=== PATIENT | female | born 1970 | race African-American/Black ===

== ENCOUNTER 2017-03-18 17:15 | Inpatient (IN) | payer MEDICARE, MEDICAID, OTHER ==
[~2017-03-18 17:15] MED LIST: BENZ1TAB PO; HALO10 PO; HALO100P IM
--- NOTE | 2017-03-18 18:01 | PD ---
HPI Chief Complaint: EX PARTE Time Seen by Provider: 18:01 Travel History International Travel<30 days: No Contact w/Intl Traveler<30days: No Traveled to known affect area: No History of Present Illness HPI 46 year-old female presents to the emergency department under and EXPARTE for psychiatric evaluation. Patient states that she does not know why she is here. She states she was "just praising Naveed." Denies any suicidal or homicidal ideations. Denies any illicit drug use. States that she has been compliant with her medications. She has no other symptoms to report at this time. PFSH Past Medical History Anemia: Yes Blood Disorders: No Bipolar Disorder: Yes Anxiety: Yes Depression: Yes Cancer: No Cardiovascular Problems: No Diabetes: No (UNK) Diminished Hearing: No Endocrine: No Genitourinary: No Immune Disorder: No Musculoskeletal: No Neurologic: No Psychiatric: Yes (PAST DX PSYCHOSIS) Reproductive: No Respiratory: No : 2 Para: 2 Past Surgical History Arteriovenous Shunt: No Section: Yes Insulin Pump: No Neurologic Surgery: No Pacemaker: No Social History Alcohol Use: No Tobacco Use: No Substance Use: No Allergies-Medications (Allergen,Severity, Reaction): Coded Allergies: Penicillin (Verified Allergy, Mild, 04/24/14) Reported Meds & Prescriptions Reported Meds & Active Scripts Active Reported Benztropine (Benztropine Mesylate) 0.5 Mg Tab 1 Mg PO HS Haldol Decanoate Inj (Haloperidol Decanoate) 100 Mg/Ml Inj 100 Mg IM MONTHLY Haloperidol 10 Mg Tab 15 Mg PO HS Haloperidol 10 Mg Tab 10 Mg PO DAILY Review of Systems Except as stated in HPI: all other systems reviewed are Neg Physical Exam Narrative GENERAL: Well-nourished female patient, in no acute distress SKIN: Focused skin assessment warm/dry. HEAD: Atraumatic. Normocephalic. EYES: Pupils equal and round. No scleral icterus. No injection or drainage. ENT: No nasal bleeding or discharge. Mucous membranes pink and moist. NECK: Trachea midline. No JVD. CARDIOVASCULAR: Regular rate and rhythm. No murmur appreciated. RESPIRATORY: No accessory muscle use. Clear to auscultation. Breath sounds equal bilaterally. GASTROINTESTINAL: Abdomen soft, non-tender, nondistended. Hepatic and splenic margins not palpable. MUSCULOSKELETAL: No obvious deformities. No clubbing. No cyanosis. No edema. NEUROLOGICAL: Awake and alert. No obvious cranial nerve deficits. Motor grossly within normal limits. Normal speech. Data Data Last Documented VS Vital Signs Date Time Temp Pulse Resp B/P Pulse Ox O2 Delivery O2 Flow Rate FiO2 03/18/17 19:49 98.5 102 16 141/79 99 Room Air Orders Complete Blood Count With Diff (03/18/17 18:00) Basic Metabolic Panel (Bmp) (03/18/17 18:00) Psych Screen (03/18/17 18:00) Drug Screen, Random Urine (03/18/17 18:00) Alcohol (Ethanol) (03/18/17 18:00) Labs Laboratory Tests Test 03/18/17 18:12 White Blood Count 10.2 TH/MM3 Red Blood Count 4.10 MIL/MM3 Hemoglobin 12.6 GM/DL Hematocrit 36.8 % Mean Corpuscular Volume 89.8 FL Mean Corpuscular Hemoglobin 30.6 PG Mean Corpuscular Hemoglobin 34.1 % Concent Red Cell Distribution Width 13.4 % Platelet Count 346 TH/MM3 Mean Platelet Volume 7.8 FL Neutrophils (%) (Auto) 73.8 % Lymphocytes (%) (Auto) 15.0 % Monocytes (%) (Auto) 10.5 % Eosinophils (%) (Auto) 0.3 % Basophils (%) (Auto) 0.4 % Neutrophils # (Auto) 7.6 TH/MM3 Lymphocytes # (Auto) 1.5 TH/MM3 Monocytes # (Auto) 1.1 TH/MM3 Eosinophils # (Auto) 0.0 TH/MM3 Basophils # (Auto) 0.0 TH/MM3 CBC Comment DIFF FINAL Differential Comment Sodium Level 137 MEQ/L Potassium Level 3.6 MEQ/L Chloride Level 100 MEQ/L Carbon Dioxide Level 25.3 MEQ/L Anion Gap 12 MEQ/L Blood Urea Nitrogen 12 MG/DL Creatinine 0.69 MG/DL Estimat Glomerular Filtration 110 ML/MIN Rate Random Glucose 77 MG/DL Calcium Level 8.9 MG/DL Urine Opiates Screen NEG Urine Barbiturates Screen NEG Urine Amphetamines Screen NEG Urine Benzodiazepines Screen NEG Urine Cocaine Screen NEG Urine Cannabinoids Screen NEG Ethyl Alcohol Level LESS THAN 3 MG/DL MDM Medical Decision Making Medical Screen Exam Complete: Yes Emergency Medical Condition: Yes Medical Record Reviewed: Yes Differential Diagnosis Mood disorder versus personality disorder versus adjustment reaction disorder Narrative Course 46 year-old female presents to emergency department for evaluation under and X Parte. Patient has been having bizarre behavior. She denies any suicidal or homicidal ideations. CBC and BMP are without acute concern toxicology is negative. EtOH is less than 3. Patient is medically cleared to undergo psychiatric screening for further evaluation and disposition. Mental health screening discussed with the patient. Psychiatric screen ordered. Diagnosis Primary Impression: Mood disorder Condition: Stable Ella Emery Mar 18, 2017 18:01
[2017-03-18 19:31] LABS: AMPHETAMINE, URINE NEG (NEG); BARBITURATES, URINE NEG (NEG); COCAINE, URINE NEG (NEG)
[2017-03-18 19:38] LABS: AUTOMATED NEUTROPHIL # 7.6 TH/MM3 (1.8-7.7); BASOPHIL % 0.4 % (0.0-2.0); EOSINOPHIL % 0.3 % (0.0-4.0); HEMATOCRIT 36.8 % (35.0-46.0); HEMO FLAGS DIFF FINAL; LYMPHOCYTE # 1.5 TH/MM3 (1.0-4.8); MEAN CELL VOLUME 89.8 FL (80.0-100.0); MEAN CORPUSCULAR HEMOGLOBIN 30.6 PG (27.0-34.0); MEAN CORPUSCULAR HGB CONC 34.1 % (32.0-36.0); MONO % 10.5 % (0.0-8.0); NEUT % 73.8 % (16.0-70.0); PLATELET COUNT 346 TH/MM3 (150-450); RED CELL DISTRIBUTION WIDTH 13.4 % (11.6-17.2); WHITE BLOOD COUNT 10.2 TH/MM3 (4.0-11.0)
[2017-03-18 19:49] VITALS: BP 141/79; PULSE 102; RESP 16; TEMP 98.5; O2SAT 99
[2017-03-18 19:59] LABS: ANION GAP 12 MEQ/L (5-15); BICARBONATE 25.3 MEQ/L (21.0-32.0); BLOOD UREA NITROGEN 12 MG/DL (7-18); CHLORIDE 100 MEQ/L (98-107); GLOMERULAR FILTRATION RATE 110 ML/MIN (>89); SODIUM (NA) 137 MEQ/L (136-145)
[2017-03-18 20:03] LABS: POTASSIUM 3.6 MEQ/L (3.5-5.1)
[2017-03-18] MEDS ORDERED: HALO100P IM (20:21)
[2017-03-18] MEDS ORDERED: HALO10TA PO ×2 (20:21)
[2017-03-18] MEDS ORDERED: COGE1INJ IM (20:21)
[2017-03-18] MEDS ORDERED: BENZ0.5T PO (20:22)
[2017-03-18 23:56] VITALS: BP 143/67; PULSE 89; RESP 19; O2SAT 100
[2017-03-19 06:12] VITALS: BP 144/85; PULSE 91; RESP 16; TEMP 98.5; O2SAT 100
[2017-03-19] MEDS ORDERED: LORazepam 0.5 MG TAB PO PRN (09:45)
[2017-03-19] MEDS ORDERED: LORazepam 2 MG/ML VIAL IM PRN ×2 (09:45)
[2017-03-19] MEDS ORDERED: ACETAMINOPHEN 325 MG TAB PO PRN (09:45)
[2017-03-19] MEDS ORDERED: ALUMINUM/MAGNESIUM/SIMETH 30 ML CUP PO PRN (09:45)
[2017-03-19] MEDS ORDERED: MAGNESIUM HYDROXIDE SUSP 30 ML CUP PO PRN (09:45)
[2017-03-19] MEDS: HALOPERIDOL 10 MG TAB PO SCH ×2 (10:15→21:01)
[2017-03-19 10:59] VITALS: BP 141/83; PULSE 98; RESP 15; O2SAT 100
--- NOTE | 2017-03-19 11:41 | HHI.HP ---
Provisional Diagnosis Admission Date Mar 19, 2017 at 09:46 Justin I. Chronic paranoid schizophrenia vs schizoaffective disorder, bipolar type Justin II. Deferred Justin III. No significant medical history Justin IV. Multiple psychiatric hospitalizations, state hospitalizations, history of noncompliance Justin V. 35 Certification of Person's Competence To Provide Express and Informed Consent I have personally examined Jeniffer Caban , a person being served at [facility] on, Mar 19, 2017 11:19. Express and informed consent means consent voluntarily given in writing, by a competent person, after sufficient explanation and disclosure of the subject matter involved to enable the person to make a knowing and willful decision without any element of force, fraud, deceit, duress, or other form of constraint or coercion. This person is 18 years of age or older, is not now known to be incompetent to consent to treatment with a guardian advocate, and does not have a health care surrogate or proxy currently making medical treatment decisions. I have found this person to be one of the following: [] Competent to provide express and informed consent, as defined above, for voluntary admission to this facility and is competent to provide express and informed consent for treatment. He/she has the consistent capacity to make well reasoned, willful, and knowing decisions concerning his or her medical or mental health treatment. The person fully and consistently understands the purpose of the admission for examination/placement and is fully capable of personally exercising all rights assured under [place] [] Incompetent to provide express and informed consent to voluntary admission, and this is incompetent to provide express and informed consent to treatment. The person must be transferred to involuntary status and a petition for a guardian advocate filed with the Circuit Court. [X] Refusing to provide express and informed consent to voluntary admission but is competent to provide express and informed consent for treatment. The person must be discharged or transferred to involuntary status. Form shall be completed within 24 hours of a person's arrival at the receiving facility and filed in the clinical record of each person: 1. Admitted on a voluntary basis 2. Permitted to provide express and informed consent to his/her own treatment 3. Allowed to transfer from involuntary to voluntary status 4. Prior to permitting a person to consent to his or her own treatment after having been previously found incompetent to consent to treatment. History of Present Illness Capacity: Has Capacity HPI The patient is a 46 year-old woman, domiciled in a senior care [facility], single, supported by [facility], with extensive psychiatric history of paranoid schizophrenia, schizoaffective disorder, bipolar type, multiple psychiatric hospitalizations, she was hospitalized here at [place] in 2013, the documentation was reviewed, at that time this hospitalization was due to a very similar presentation to the one today, she has acted outpatient psychiatric care in [facility], she is on Haldol 10 mg in the morning and 15 mg hs, she was given a dose of Haldol decanoate 100 milligrams 03/16/2017, she is also on benztropine 1 mg twice a day, she denies previous suicidal attempts, she has also history of States hospitalizations, no significant medical history, who presents to the emergency department under and EXPARTE for psychiatric evaluation. Patient states that she does not know why she is here. She states she was "just praising Naveed." It is a candidate evaluation patient is persistently praying, stating that Naveed Grover is the Lord, singing, laughing inappropriately. She says that " continue here the angels and the voice of Naveed Ness, I can hear them, they are here". Patient has a Bible open in front of her. As per nurses patient has been reading the Bible, talking to herself, praying most of the night. Patient reports feeling very happy " because Naveed Ness is with me", she denies depressive symptoms, she denies anxiety, she denies suicidal and homicidal ideation. Patient says that she was sent here from her living facility "because I was loud, but they don't understand that I was having an spiritual catharsis". Patient denies the use of drugs and alcohol. Review of Systems Constitutional: DENIES: Diaphoretic episodes, Fatigue, Fever, Weight gain, Weight loss, Chills, Dizziness, Change in appetite, Night Sweats Endocrine: DENIES: Abnorml menstrual pattern, Heat/cold intolerance, Polydipsia , Polyuria, Polyphagia Eyes: DENIES: Blurred vision, Diplopia, Eye inflammation, Eye pain, Vision loss , Photosensitivity, Double Vision Ears, nose, mouth, throat: DENIES: Tinnitus, Hearing loss, Vertigo, Nasal discharge, Oral lesions, Throat pain, Hoarseness, Ear Pain, Running Nose, Epistaxis, Sinus Pain, Toothache, Odynophagia Respiratory: DENIES: Apneas, Cough, Snoring, Wheezing, Hemoptysis, Sputum production, Shortness of breath Cardiovascular: DENIES: Chest pain, Palpitations, Syncope, Dyspnea on Exertion , PND, Lower Extremity Edema, Orthopnea, Claudication Gastrointestinal: DENIES: Abdominal pain, Black stools, Bloody stools, Constipation, Diarrhea, Nausea, Vomiting, Difficulty Swallowing, Anorexia Genitourinary: DENIES: Abnormal vaginal bleeding, Dysmenorrhea, Dyspareunia, Sexual dysfunction, Urinary frequency, Urinary incontinence, Urgency, Hematuria , Dysuria, Nocturia, Vaginal discharge Integumentary: DENIES: Abnormal pigmentation, Pruritus, Rash, Nail changes, Breast masses, Breast skin changes, Nipple discharge Hematologic/lymphatic: DENIES: Bruising, Lymphadenopathy Immunologic/allergic: DENIES: Eczema, Urticaria Psychiatric: COMPLAINS OF: Agitation, Delusions, DENIES: Anxiety, Confusion, Mood changes, Depression, Hallucinations, Suicidal Ideation, Homicidal Ideation Substance Abuse History Drugs/Alcohol past 12 months Patient denies the use of drugs and alcohol Past Family Social History Coded Allergies: Penicillin (Verified Allergy, Mild, 04/24/14) Reported Medications Benztropine 0.5 Mg Tab1 Mg PO HS #30 TAB Ref 0 03/18/17 Haloperidol Decanoate Inj (Haldol Decanoate Inj)100 Mg/Ml [id number] Mg IM MONTHLY #1 VIAL Ref 0 03/18/17 Haloperidol 10 Mg Tab15 Mg PO HS Ref 0 03/18/17 Haloperidol 10 Mg Tab10 Mg PO DAILY Ref 0 03/18/17 Current Medications Medications (Trade) Dose Ordered Sig/Galen Route Start Time Stop Time Status Last Admin (Cogentin) 1 mg HS PO 03/19/17 21:00 (Haldol) 10 mg DAILY PO 03/19/17 09:45 03/19/17 10:15 (Haldol) 15 mg HS PO 03/19/17 21:00 (Ativan) 1 mg Q6H PRN PO 03/19/17 09:45 (Ativan Inj) 1 mg Q6H PRN IM 03/19/17 09:45 (Tylenol) 650 mg Q4H PRN PO 03/19/17 09:45 (Milk Of Magnesia Liq) 30 ml DAILY PRN PO 03/19/17 09:45 (Mag-Al Plus Susp Liq) 30 ml Q6H PRN PO 03/19/17 09:45 (Habitrol 21 Mg Patch.24 Hr) 1 patch DAILY T-DERMAL 03/19/17 10:00 Miscellaneous Information 1 HS T-DERMAL 03/19/17 21:00 Family History Patient reports that her aunt and grandmother are both a schizophrenic Social History Patient was born and raised in [place], she lives in [place] in [facility] nursing home, she is single, supported by [facility], his education is some college Patient's Strengths (min. 2) Outpatient psychiatric care Physical Exam On physical examination, patient is agitated, restless, talkative, but no tremors, no significant EPS, no gait disturbances, no weakness, Vital Signs Vital Signs Date Time Temp Pulse Resp B/P Pulse Ox O2 Delivery O2 Flow Rate FiO2 03/19/17 10:59 98 15 141/83 100 Room Air 03/19/17 06:12 98.5 Lab Results Labs Laboratory Tests Test 03/18/17 18:12 White Blood Count 10.2 TH/MM3 Red Blood Count 4.10 MIL/MM3 Hemoglobin 12.6 GM/DL Hematocrit 36.8 % Mean Corpuscular Volume 89.8 FL Mean Corpuscular Hemoglobin 30.6 PG Mean Corpuscular Hemoglobin 34.1 % Concent Red Cell Distribution Width 13.4 % Platelet Count 346 TH/MM3 Mean Platelet Volume 7.8 FL Neutrophils (%) (Auto) 73.8 % Lymphocytes (%) (Auto) 15.0 % Monocytes (%) (Auto) 10.5 % Eosinophils (%) (Auto) 0.3 % Basophils (%) (Auto) 0.4 % Neutrophils # (Auto) 7.6 TH/MM3 Lymphocytes # (Auto) 1.5 TH/MM3 Monocytes # (Auto) 1.1 TH/MM3 Eosinophils # (Auto) 0.0 TH/MM3 Basophils # (Auto) 0.0 TH/MM3 CBC Comment DIFF FINAL Differential Comment Sodium Level 137 MEQ/L Potassium Level 3.6 MEQ/L Chloride Level 100 MEQ/L Carbon Dioxide Level 25.3 MEQ/L Anion Gap 12 MEQ/L Blood Urea Nitrogen 12 MG/DL Creatinine 0.69 MG/DL Estimat Glomerular Filtration 110 ML/MIN Rate Random Glucose 77 MG/DL Calcium Level 8.9 MG/DL Urine Opiates Screen NEG Urine Barbiturates Screen NEG Urine Amphetamines Screen NEG Urine Benzodiazepines Screen NEG Urine Cocaine Screen NEG Urine Cannabinoids Screen NEG Ethyl Alcohol Level LESS THAN 3 MG/DL Mental Status Examination Appearance Overweight woman, looks younger than her stated age, hospital [facility], good hygiene, restless, agitated, cooperative, but very talkative Speech: Rapid, Tangential Orientation: x3 Memory: Unremarkable Thought Process: Loose Association, Tangential Thought Content: Bizarre thinking, Obsessions Language She speaks in complete sentences, but reported the wording Fund of Knowledge Not able to be as assessed due to level of psychosis Hallucination Type: Auditory, Visual Suicidal Ideation: No Previous Suicide Attempts: No Homicidal Ideation: No Previous Homicide Attempts: No Judgment: Poor Affect: Other (euphoric, elevated) Mood: Other ("very happy") Motor Activity: Normal gait Assessment & Plan Problem List: (1) Schizoaffective disorder Assessment & Plan: On psychiatric evaluation today patient presents with significant mandaen and internal preoccupation, restless, agitated, disorganized, tangential. Patient has an extensive history of psychiatric admission due to psychotic decompensation. Previous psychotic decompensation have been similar to the current presentation, as per chart review. Patient needs psychiatric admission for stabilization and safety. We'll restart Haldol 10 mg a.m. and 15 mg at bedtime. We'll start benztropine 1 mg twice a day. Patient was given Haldol decanoate 100 mg 03/16/2017, so PO Haldol could be discontinue in 2 weeks once this information is confirmed. Collateral information from her living facility and outpatient psychiatrist needed. Will consult psychiatry for second opinion. steel construction worker intervention. Psychosocial assessment, collateral information, individual and group therapy, coordinating a safe discharge plan. Extensive psychoeducation, motivation and support provided. ICD Code: F25.9 Assessment & Plan Estimated LOS: days Problem Qualifiers (1) Schizoaffective disorder: Qualified Code: F25.0 - Schizoaffective disorder, bipolar type Juno Trujillo MD Mar 19, 2017 11:41
[2017-03-19 13:51] VITALS: BP 133/73; PULSE 101; RESP 17; TEMP 97.9; O2SAT 98
[2017-03-19 18:04] VITALS: BP 159/100; PULSE 120; RESP 19; TEMP 98.4; O2SAT 100
[2017-03-19] MEDS: REMOVE OLD NICODERM (NICOTINE) PATCH T-DERMAL SCH (21:00)
[2017-03-19] MEDS: BENZTROPINE MESYLATE 1 MG TAB PO SCH (21:00)
[2017-03-20] MEDS: LORazepam 1 MG TAB PO PRN ×2 (04:53→15:58)
[2017-03-20 05:09] VITALS: BP 162/77; PULSE 125; RESP 18; TEMP 97.5; O2SAT 97
[2017-03-20 08:11] LABS: BICARBONATE 25.8 MEQ/L (21.0-32.0); POTASSIUM 3.3 MEQ/L (3.5-5.1)
[2017-03-20 08:14] LABS: HDL CHOLESTEROL 74.9 MG/DL (40.0-60.0)
[2017-03-20] MEDS: HALOPERIDOL 10 MG TAB PO SCH ×2 (08:57→20:41)
[2017-03-20] MEDS: NICOTINE 21 MG/24 HR PATCH T-DERMAL SCH ×2 (08:58→09:00)
--- NOTE | 2017-03-20 14:04 | HHI.PYPN ---
Subjective Remarks This is a request for second opinion. Admission note was reviewed, patient was seen, and case discussed with nursing. Patient remains elevated with the euphoric and expansive affect. She is singing loudly in the dayroom and later singing loudly to herself. Insight is poor. She denies any hallucinations or messages from God despite responding to internal stimuli. Heart rate and blood pressure has been elevated. Patient denies any chest pain or shortness of breath or nausea or vomiting. Potassium is 3.3 Objective Alert: Yes [place]: Person, Place Mood: Happy Affect: Other (euphoric) Memory Intact: Immediate (not formally assessed) Hallucinations: Auditory (denies) Delusions: No Delusion Type: Other (bizarre delusions, responding to internal stimuli) Suicidal: Ideation (denies) Homicidal: Ideation (denies) Insight/Judgment Poor Labs Test 03/20/17 07:21 Sodium Level 135 MEQ/L Potassium Level 3.3 MEQ/L Chloride Level 99 MEQ/L Carbon Dioxide Level 25.8 MEQ/L Anion Gap 10 MEQ/L Blood Urea Nitrogen 11 MG/DL Creatinine 0.61 MG/DL Estimat Glomerular Filtration 127 ML/MIN Rate Random Glucose 86 MG/DL Calcium Level 8.9 MG/DL Triglycerides Level 73 MG/DL Cholesterol Level 196 MG/DL LDL Cholesterol 107 MG/DL HDL Cholesterol 74.9 MG/DL Cholesterol/HDL Ratio 2.61 RATIO Vitals/IOs Vital Signs Date Time Temp Pulse Resp B/P Pulse Ox O2 Delivery O2 Flow Rate FiO2 03/20/17 05:09 97.5 125 18 162/77 97 03/19/17 10:59 Room Air Assessment & Plan Problem List: (1) Schizoaffective disorder ICD Code: F25.9 Assessment & Plan I agree with the first opinion to continue petition. Criteria include acute psychosis. We will consult medicine, get a magnesium level, getting EKG, and replace potassium Justification for Cont. Inpt. Patient will decompensate in a less restrictive setting Problem Qualifiers (1) Schizoaffective disorder: Qualified Code: F25.0 - Schizoaffective disorder, bipolar type Bryson Barnes DO Mar 20, 2017 14:04
[2017-03-20] MEDS ORDERED: POTASSIUM CHLORIDE 20 MEQ CONTROLLED RELEASE TAB PO ONE (14:15)
--- NOTE | 2017-03-20 16:32 | PD.CONS ---
History of Present Illness Service Hospitalist Consult Requested By Dr. Trujillo Reason for Consult Hypokalemia and hypertension Primary Care Physician No Primary Care Physician Diagnoses: History of Present Illness This is a 38-year-old female patient with extensive psychiatric history with multiple admissions was admitted to psychiatry for stabilization and safety of her worsening psychosis. Incidentally the patient was found to have a potassium of 3.3 and elevated blood pressure. Hypertension does not appear to be one of the patient's active medical problems. Hospitals were consulted to assist with management. Past Family Social History Allergies: Coded Allergies: Penicillin (Verified Allergy, Mild, 04/24/14) Past Medical History Schizoaffective disorder Reported Medications Benztropine (Benztropine Mesylate) 0.5 Mg Tab 1 Mg PO HS Haldol Decanoate Inj (Haloperidol Decanoate) 100 Mg/Ml Inj 100 Mg IM MONTHLY Haloperidol 10 Mg Tab 15 Mg PO HS Haloperidol 10 Mg Tab 10 Mg PO DAILY Family History Patient reports that her aunt and grandmother are both a schizophrenic Social History Patient was born and raised in [place], she lives in [place] in [facility] home, she is single, supported by [facility], his education is some college Physical Exam Vital Signs Vital Signs Date Time Temp Pulse Resp B/P Pulse Ox O2 Delivery O2 Flow Rate FiO2 03/20/17 05:09 97.5 125 18 162/77 97 03/19/17 18:04 98.4 120 19 159/100 100 Physical Exam GENERAL: This is a well-nourished, well-developed patient, in no apparent distress. SKIN: No rashes, ecchymoses or lesions. Cool and dry. HEAD: Atraumatic. Normocephalic. No temporal or scalp tenderness. EYES: Pupils equal round and reactive. Extraocular motions intact. No scleral icterus. No injection or drainage. ENT: Nose without bleeding, purulent drainage or septal hematoma. Throat without erythema, tonsillar hypertrophy or exudate. Uvula midline. Airway patent. NECK: Trachea midline. No JVD or lymphadenopathy. Supple, nontender, no meningeal signs. CARDIOVASCULAR: Regular rate and rhythm without murmurs, gallops, or rubs. RESPIRATORY: Clear to auscultation. Breath sounds equal bilaterally. No wheezes , rales, or rhonchi. GASTROINTESTINAL: Abdomen soft, non-tender, nondistended. No hepato-splenomegaly , or palpable masses. No guarding. MUSCULOSKELETAL: Extremities without clubbing, cyanosis, or edema. No joint tenderness, effusion, or edema noted. No calf tenderness. Negative Homans sign bilaterally. NEUROLOGICAL: Awake and alert. Cranial nerves II through XII intact. Motor and sensory grossly within normal limits. Five out of 5 muscle strength in all muscle groups. Normal speech. Laboratory Laboratory Tests Test 03/20/17 07:21 Sodium Level 135 Potassium Level 3.3 Chloride Level 99 Carbon Dioxide Level 25.8 Anion Gap 10 Blood Urea Nitrogen 11 Creatinine 0.61 Estimat Glomerular Filtration 127 Rate Random Glucose 86 Calcium Level 8.9 Triglycerides Level 73 Cholesterol Level 196 LDL Cholesterol 107 HDL Cholesterol 74.9 Cholesterol/HDL Ratio 2.61 Result Diagram: 03/18/17 18103/20/17 0721 Assessment and Plan Problem List: (1) Hypokalemia Status: Acute (2) Hypertension Status: Acute Assessment and Plan 46-year-old female patient with schizoaffective disorder admitted to inpatient psychiatry for worsening psychosis, hospitalist consulted to manage the following Elevated BP: Blood pressure has been consistently elevated with intermittent tachycardia. We will initiate the patient on amlodipine 5 mg daily and titrate up as necessary. Hypokalemia: Potassium 3.3 she received 20 meq of KCL. Mg and CMP also ordered. Will follow and further replete as necessary Schizoaffective disorder with psychosis: per psych Aury Kessler MD Mar 20, 2017 16:32
[2017-03-20] MEDS: amLODIPine BESYLATE 5 MG TAB PO SCH (18:03)
[2017-03-20 18:04] VITALS: BP 165/103; PULSE 120; RESP 18; TEMP 96.5; O2SAT 99
[2017-03-20] MEDS: BENZTROPINE MESYLATE 1 MG TAB PO SCH (20:41)
[2017-03-20] MEDS: REMOVE OLD NICODERM (NICOTINE) PATCH T-DERMAL SCH (20:41)
[2017-03-21 05:44] VITALS: BP 158/75; PULSE 125; RESP 20; TEMP 98.3; O2SAT 98
[2017-03-21] MEDS: amLODIPine BESYLATE 5 MG TAB PO SCH (08:59)
[2017-03-21] MEDS: HALOPERIDOL 10 MG TAB PO SCH ×2 (08:59→19:48)
[2017-03-21] MEDS: NICOTINE 21 MG/24 HR PATCH T-DERMAL SCH (08:59)
[2017-03-21 09:55] LABS: ANION GAP 11 MEQ/L (5-15); AST (GOT) 36 U/L (15-37); BICARBONATE 25.9 MEQ/L (21.0-32.0); BLOOD UREA NITROGEN 9 MG/DL (7-18); CHLORIDE 100 MEQ/L (98-107); GLOMERULAR FILTRATION RATE 118 ML/MIN (>89); MAGNESIUM 1.9 MG/DL (1.5-2.5); POTASSIUM 3.3 MEQ/L (3.5-5.1); SODIUM (NA) 137 MEQ/L (136-145)
[2017-03-21 09:59] LABS: ALKALINE PHOSPHATASE 92 U/L (45-117); ALT (GPT) 32 U/L (10-53); TOTAL BILIRUBIN ADULT 1.7 MG/DL (0.2-1.0)
--- NOTE | 2017-03-21 13:09 | HHI.PYPN ---
Subjective Remarks Patient was seen and case discussed with nursing. Patient is followed by the medical team, potassium was 3.3 and medicine said he they would replace and follow. Patient remains labile and religiously preoccupied. Spending her time kneeling and praying. Insight continues to be very poor. She wrote a letter saying she would refuse her by mouth medications from now on. Psychoeducation was done about her involuntary status. Patient says she received Haldol Decanoate 100 mg on 03/17 Objective Alert: Yes [place]: Person, Place Mood: Happy Affect: Other (euphoric) Memory Intact: Immediate (not formally assessed) Hallucinations: Auditory (responding to internal stimuli) Delusions: No Delusion Type: Other (bizarre delusions, responding to internal stimuli) Suicidal: Ideation (denies) Homicidal: Ideation (denies) Insight/Judgment Poor Labs Test 03/21/17 09:10 Sodium Level 137 MEQ/L Potassium Level 3.3 MEQ/L Chloride Level 100 MEQ/L Carbon Dioxide Level 25.9 MEQ/L Anion Gap 11 MEQ/L Blood Urea Nitrogen 9 MG/DL Creatinine 0.65 MG/DL Estimat Glomerular Filtration 118 ML/MIN Rate Random Glucose 73 MG/DL Calcium Level 9.3 MG/DL Magnesium Level 1.9 MG/DL Total Bilirubin 1.7 MG/DL Aspartate Amino Transf 36 U/L (AST/SGOT) Alanine Aminotransferase 32 U/L (ALT/SGPT) Alkaline Phosphatase 92 U/L Total Protein 8.5 GM/DL Albumin 3.6 GM/DL Vitals/IOs Vital Signs Date Time Temp Pulse Resp B/P Pulse Ox O2 Delivery O2 Flow Rate FiO2 03/21/17 05:44 98.3 125 20 158/75 98 03/19/17 10:59 Room Air Assessment & Plan Problem List: (1) Schizoaffective disorder ICD Code: F25.9 Assessment & Plan Add IM doses patient refuses by mouth Haldol Justification for Cont. Inpt. Patient would decompensate in a less restrictive setting Problem Qualifiers (1) Schizoaffective disorder: Qualified Code: F25.0 - Schizoaffective disorder, bipolar type Bryson Barnes DO Mar 21, 2017 13:09
[2017-03-21] MEDS ORDERED: HALOPERIDOL LACTATE 5 MG/ML AMP IM PRN (13:15)
--- NOTE | 2017-03-21 18:27 | EKG ---
Date Performed: 03/20/2017 Time Performed: 15:30:31 PTAGE: 46 years EKG: SINUS TACHYCARDIA POSSIBLE LEFT ATRIAL ENLARGEMENT NONSPECIFIC T-WAVE ABNORMALITY ABNORMAL RHYTHM ECG PREVIOUS TRACING : 07/10/2009 07.19 Compared to prior tracing no significant change DOCTOR: Oneal Palmer Interpretating Date/Time 03/21/2017 18:24:54
[2017-03-21] MEDS ORDERED: cloNIDine HCL 0.1 MG TAB PO ONE (19:30)
[2017-03-21] MEDS: BENZTROPINE MESYLATE 1 MG TAB PO SCH (19:49)
[2017-03-21 22:23] VITALS: BP 185/103; PULSE 118; RESP 20; TEMP 98.7; O2SAT 97
[2017-03-22 05:53] VITALS: BP 141/89; PULSE 119; RESP 18; TEMP 97.3; O2SAT 98
[2017-03-22] MEDS ORDERED: POTASSIUM CHLORIDE 10 MEQ CONTROLLED RELEASE TAB PO ONE (08:30)
[2017-03-22] MEDS: amLODIPine BESYLATE 5 MG TAB PO SCH (09:00)
[2017-03-22] MEDS: HALOPERIDOL 10 MG TAB PO SCH ×2 (09:00→21:00)
--- NOTE | 2017-03-22 11:20 | HHI.PR ---
Subjective Remarks Follow up: hypokalemia and HTN Patient sitting in [place] using the phone. Patient appears to be in no acute distress. Pleasant but refusing any PO medication at this time- patient unable to explain to reason. Patient reports she is blessed and offers no medical complaints at this time. Patient denies SOB, CP, N/V/C/D, fevers or chills. Objective Vitals Vital Signs Date Time Temp Pulse Resp B/P Pulse Ox O2 Delivery O2 Flow Rate FiO2 03/22/17 05:53 97.3 119 18 141/89 98 03/21/17 22:23 98.7 118 20 185/103 97 Result Diagram: 03/18/17 1812 03/21/17 0910 Objective Remarks GENERAL: This is a well-nourished, well-developed patient, in no apparent distress. SKIN: No rashes, ecchymoses or lesions. Cool and dry. HEAD: Atraumatic. Normocephalic. No temporal or scalp tenderness. EYES: Extraocular motions intact. No scleral icterus. No injection or drainage. CARDIOVASCULAR: tachycardia. RESPIRATORY: Clear to auscultation. Breath sounds equal bilaterally. No wheezes , rales, or rhonchi. GASTROINTESTINAL: Abdomen soft, non-tender, nondistended. No hepato-splenomegaly , or palpable masses. No guarding. MUSCULOSKELETAL: Extremities without clubbing, cyanosis, or edema. No joint tenderness, effusion, or edema noted. No calf tenderness. Negative Homans sign bilaterally. NEUROLOGICAL: Awake and alert. no focal deficits noted. Motor and sensory grossly within normal limits. Five out of 5 muscle strength in all muscle groups. Normal speech. A/P Assessment and Plan 46-year-old female patient with schizoaffective disorder admitted to inpatient psychiatry for worsening psychosis, hospitalist consulted to manage the following Elevated BP: Blood pressure has been consistently elevated with intermittent tachycardia. patient refusing PO medication today will hold amlodipine 5 mg daily start clonidine patch 0.1mg continue to monitor BP once taking PO plan to transition back to PO check TSH Hypokalemia: Potassium 3.3 she received 20 meq of KCL. Mg 1.9. Patient refusing to take pill will change to effervescent. Will follow and further replete as necessary Schizoaffective disorder with psychosis: per psych Discussed with patient, staff and Yara Galeano PA Mar 22, 2017 11:20
[2017-03-22] MEDS ORDERED: POTASSIUM CHLORIDE 25 MEQ EFFERVESCENT TAB PO ONE (12:00)
--- NOTE | 2017-03-22 12:00 | HHI.PYPN ---
Subjective Remarks Patient seen and examined with counselor. Chart reviewed. Case discussed with nursing staff reports that the patient remains quite religiously preoccupied. On my examination today, the patient presents with an elevated mood. She asks for discharge saying "I had a moment of up if any. I wanted to praise him" referring to God. She denies suicidal or homicidal ideation. Speech a little bit pressured. Thought process with some loosening of associations. The patient reports that she received 100 mg of Haldol Decanoate on March 17. She refused her oral Haldol this morning. Denies side effects from medications. No physical complaints. Review of Systems ROS Limitations: Psychotic, Poor Historian Except as stated in HPI: all other systems reviewed are Neg Objective Alert: Yes [place]: Person, Place Mood: Other (elevated) Affect: Other (expansive) Memory Intact: Immediate (not formally assessed) Hallucinations: Auditory (internally preoccupied) Delusions: Yes Delusion Type: Grandiose, Other (judaism) Suicidal: Ideation (denies SI) Homicidal: Ideation (denies HI) Insight/Judgment Poor Remarks No motor abnormalities noted. Thought process with loosening of associations. Speech somewhat pressured. Grooming and hygiene fair. Labs Labs reviewed. Vitals/IOs Vital Signs Date Time Temp Pulse Resp B/P Pulse Ox O2 Delivery O2 Flow Rate FiO2 03/22/17 05:53 97.3 119 18 141/89 98 03/19/17 10:59 Room Air Assessment & Plan Problem List: (1) Schizoaffective disorder ICD Code: F25.9 Assessment & Plan As an initial step, I will try to titrate patient's Haldol Decanoate for additional antipsychotic action. Given her oral dose of Haldol, with which she may be variably adherent, she likely would benefit from a higher dose of Decanoate, and I will order 50 mg IM now. QTc wnl. To consider a mood stabilizer such as Depakote or lithium. Continue to monitor on the high daily unit. Continue other medications and care as ordered. Justification for Cont. Inpt. Impairment in reality construction. Medication changes and process. High risk for decompensation in a less restrictive environment. Discharge Planning Pending psychiatric stabilization Request HC Surrog/Guard Advoc?: Yes (I will request healthcare surrogate and guardian advocate as I patrol judge the patient is not capacitated to make medical decisions in her present state.) Problem Qualifiers (1) Schizoaffective disorder: Qualified Code: F25.0 - Schizoaffective disorder, bipolar type Kenneth Kennedy MD Mar 22, 2017 12:00
[2017-03-22] MEDS: cloNIDine HCL 0.1 MG/24 HR PATCH T-DERMAL SCH (13:00)
[2017-03-22] MEDS ORDERED: HALOPERIDOL DECANOATE 50 MG/ML VIAL IM SCH (14:00)
[2017-03-22] MEDS ORDERED: POTASSIUM CHLORIDE 20 MEQ CONTROLLED RELEASE TAB PO ONE (18:00)
[2017-03-22 18:11] VITALS: BP 145/83; PULSE 112; RESP 18; TEMP 98.3; O2SAT 98
[2017-03-22] MEDS: BENZTROPINE MESYLATE 1 MG TAB PO SCH (21:00)
[2017-03-23 06:08] VITALS: BP 146/91; PULSE 107; RESP 17; TEMP 97.7; O2SAT 98
[2017-03-23] MEDS: HALOPERIDOL 10 MG TAB PO SCH ×3 (08:41→21:48)
--- NOTE | 2017-03-23 11:54 | HHI.PYPN ---
Subjective Remarks Patient seen and examined with counselor and nurse. Chart reviewed. Case discussed with nursing staff who reports patient continues to refuse oral Haldol. Patient also has been eating poorly, and it appears that she ate 100% of dinner last night but otherwise has been refusing meals. When I asked the patient about this today she says that she is "giving God all the glory." She further tells me that "Kerwin 4:4 says that man shall not live by bread alone. " Denies SI or HI. She denies side effects from medications. She did receive additional Haldol Decanoate yesterday. No physical complaints. Review of Systems ROS Limitations: Psychotic, Poor Historian Except as stated in HPI: all other systems reviewed are Neg Objective Alert: Yes [place]: Person, Place Mood: Other (remains somewhat elevated) Affect: Other (remains somewhat expansive) Memory Intact: Immediate (not formally assessed) Hallucinations: Auditory (internally stimulated) Delusions: Yes Delusion Type: Grandiose, Other (ongoing denominational delusions) Suicidal: Ideation (denies SI) Homicidal: Ideation (denies HI) Insight/Judgment Poor Remarks No motor abnormalities noted. Grooming and hygiene fair. Thought process linear within delusional system. Labs Labs reviewed. I see that a beta hCG has not been checked and have ordered one now. Vitals/IOs Vital Signs Date Time Temp Pulse Resp B/P Pulse Ox O2 Delivery O2 Flow Rate FiO2 03/23/17 06:08 97.7 107 17 146/91 98 03/19/17 10:59 Room Air Assessment & Plan Problem List: (1) Schizoaffective disorder ICD Code: F25.9 Assessment & Plan Continue to offer oral Haldol. I have titrated the IM backup for patient's Haldol to 10 mg per dose. Patient has now received 150 mg of IM Haldol Decanoate. Add Depakote DR 500 mg twice daily for mood stabilization. LFTs and platelets okay. I will leave an instruction not to start the Depakote until the beta hCG has resulted negative. Encouraged food intake. Continue to monitor on the high acuity unit. Continue other medications and care as ordered. Justification for Cont. Inpt. Impairment in self-care. Impairment in reality construction. High risk for decompensation in less restrictive environment. Med changes in process. Discharge Planning Pending psychiatric stabilization Request HC Surrog/Guard Advoc?: Yes Problem Qualifiers (1) Schizoaffective disorder: Qualified Code: F25.0 - Schizoaffective disorder, bipolar type Kenneth Kennedy MD Mar 23, 2017 11:54
[2017-03-23 17:19] LABS: BHCG SCREEN QUALITATIVE LESS THAN 1 MIU/ML (0-5)
[2017-03-23 18:05] VITALS: BP 163/90; PULSE 101; RESP 18; TEMP 98; O2SAT 100
[2017-03-23] MEDS: DIVALPROEX DR 500 MG TABEC PO SCH (21:00)
[2017-03-23] MEDS: BENZTROPINE MESYLATE 1 MG TAB PO SCH (21:00)
[2017-03-23] MEDS: HALOPERIDOL LACTATE 5 MG/ML AMP IM PRN (22:05)
[2017-03-24 05:47] VITALS: BP 125/89; PULSE 97; RESP 18; TEMP 97.4; O2SAT 99
[2017-03-24] MEDS: HALOPERIDOL 10 MG TAB PO SCH ×3 (09:00→21:00)
--- NOTE | 2017-03-24 09:42 | HHI.PYPN ---
Subjective Remarks Patient seen and examined with counselor and nurse. Chart reviewed. Case discussed with nursing staff. Patient is refusing Haldol PO and receiving this IM. She continues to refuse meals, and has not eaten since 03/22 at dinner. On my examination, patient maintains it is her plan to continue to refuse to eat, again because of her jewish preoccupation. She presents as loud, intrusive, paranoid, argumentative. No side effects from medications. No physical complaints. Review of Systems ROS Limitations: Psychotic, Poor Historian Except as stated in HPI: all other systems reviewed are Neg Objective Alert: Yes [place]: Person, Place Mood: Agitated, Angry, Oppositional Affect: Labile Memory Intact: Immediate (not formally assessed) Hallucinations: Auditory (remains int stim) Delusions: Yes Delusion Type: Grandiose, Other (ongoing jewish delusions) Suicidal: Ideation (No SI) Homicidal: Ideation (No HI) Insight/Judgment Poor Remarks No motor abnormalities noted. TP perseverative on jewish themes. Grooming and hygiene fair. Labs Labs reviewed. Patient refused labs this am per nursing staff. Vitals/IOs Vital Signs Date Time Temp Pulse Resp B/P Pulse Ox O2 Delivery O2 Flow Rate FiO2 03/24/17 05:47 97.4 97 18 125/89 99 Assessment & Plan Problem List: (1) Schizoaffective disorder ICD Code: F25.9 Assessment & Plan Titrate Haldol to 10mg TID PO/IM to target psychosis. VPA on hold awaiting consent. Encourage PO intake. I&Os. Consult to the fireworks inspector. Weigh pt every third day. Try to obtain labs tomorrow that were ordered today. Continue to monitor on high acuity unit. Continue other medications and care as ordered. Justification for Cont. Inpt. Impairment in self-care (food refusal). Impairment in reality testing. High risk for decompensation. Medication changes and process. Discharge Planning Pending outcome of [address]. Request HC Surrog/Guard Advoc?: Yes Problem Qualifiers (1) Schizoaffective disorder: Qualified Code: F25.0 - Schizoaffective disorder, bipolar type Kenneth Kennedy MD Mar 24, 2017 09:41
[2017-03-24] MEDS: HALOPERIDOL LACTATE 5 MG/ML AMP IM PRN ×3 (09:51→22:34)
--- NOTE | 2017-03-24 10:35 | HHI.PR ---
Subjective Remarks Follow-up visit hypokalemia, HTN. Patient seen and examined today. Seen kneeling on the floor with bilateral on her hand. States to leave her alone she is doing okay. Then patient's sat up in the bed, started yelling and screaming that she is very unhappy with Dr. Kennedy. She states that Dr. Fuchs lied to me." Patient states that "he said I'm only going to get Haldol 100 mg injection without any pills, but he gave me Haldol 50 mg injection and the nurses keeps on insisting that I need pills." The patient was redirected. She asked if I believe in God and Naveed Grover and answered yes. Patient started to calm down and talking normally. States she is doing well. States she is refusing lab work because she is doing okay and she doesn' t need labs to be drawn. Discuss importance of lab draw especially when she has low potassium. But patient adamantly refused. Denies pain and discomfort. Denies SOB/ dyspnea. Denies chest pain, palpitations, headaches, dizziness. Denies fevers, chills, n/v/d. Denies dysuria. Objective Vitals Vital Signs Date Time Temp Pulse Resp B/P Pulse Ox O2 Delivery O2 Flow Rate FiO2 03/24/17 05:47 97.4 97 18 125/89 99 03/23/17 18:05 98.0 101 18 163/90 100 Result Diagram: 03/21/17 0910 Objective Remarks GENERAL: This is a well-nourished, well-developed patient, in no apparent distress. SKIN: Warm and dry. HEENT: Normocephalic. Pupils equal round and reactive. Nose without bleeding. Airway patent. NECK: Trachea midline. CARDIOVASCULAR: Tachycardia without murmurs, gallops, or rubs. RESPIRATORY: Clear to auscultation. Breath sounds equal bilaterally. No wheezes , rales, or rhonchi. GASTROINTESTINAL: Abdomen soft, non-tender, nondistended. Bowel Sounds normoactive x4. MUSCULOSKELETAL: Extremities without clubbing, cyanosis, or edema. NEUROLOGICAL: Awake and alert. Agitated. No focal neuro deficit. Moves all extremities. Normal speech. A/P Problem List: (1) Hypertension ICD Code: I10 Status: Chronic (2) Hypokalemia ICD Code: E87.6 Status: Acute (3) Schizoaffective disorder ICD Code: F25.9 Status: Acute (4) Mood disorder ICD Code: F39 Status: Acute Assessment and Plan 46-year-old female patient with schizoaffective disorder admitted to inpatient psychiatry for worsening psychosis, hospitalist consulted to manage the following Elevated BP: Blood pressure has been consistently elevated with intermittent tachycardia. Clonidine patch started. Tachycardia is possibly related to agitation continue to monitor BP Restart home med Norvasc once patient takes by mouth. TSH 1.490 Hypokalemia: Potassium 3.3 she received 20 meq of KCL. Mg 1.9. - Patient refusing to take pill will change to effervescent. - Repeat BMP labs has been refused by patient. She is adamantly refusing. Schizoaffective disorder with psychosis: per psych Discussed with patient, staff and Dr. Hayden If patient continues to refuse lab tomorrow, we will sign off, unable to treat patient being uncooperative and noncompliant. Problem Qualifiers (1) Schizoaffective disorder: Qualified Code: F25.0 - Schizoaffective disorder, bipolar type Lee Brady Mar 24, 2017 10:35
[2017-03-24 18:18] VITALS: BP 130/96; PULSE 90; RESP 18; TEMP 98; O2SAT 98
[2017-03-24] MEDS: BENZTROPINE MESYLATE 1 MG TAB PO SCH (21:00)
[2017-03-25 05:42] VITALS: BP 138/78; PULSE 108; RESP 18; TEMP 98.3; O2SAT 98
[2017-03-25] MEDS: HALOPERIDOL 10 MG TAB PO SCH ×3 (08:38→21:00)
--- NOTE | 2017-03-25 09:28 | HHI.PYPN ---
Subjective Remarks Patient seen and examined with counselor and nurse. Chart reviewed. Case d/w RN. Patient once again refused labs. Refusing meals. Zero fluid intake so far today. On my exam, patient remains highly paranoid, irritable, argumentative. She believes the nursing staff are covertly administering more Haldol than ordered. She continues to say that she will refuse to eat, and she cannot say when she plans to break her fast, if ever. No side effects from meds. No physical complaints. Review of Systems ROS Limitations: Psychotic, Poor Historian Except as stated in HPI: all other systems reviewed are Neg Objective Alert: Yes [place]: Person, Place Mood: Angry, Oppositional Affect: Restricted Memory Intact: Immediate (not formally assessed) Hallucinations: Other (No AVH) Delusions: Yes Delusion Type: Other (ongoing latter-day delusions) Suicidal: Ideation (No SI) Homicidal: Ideation (No HI) Insight/Judgment Poor Remarks No motor abnormalities noted. No hand tremor, no cogwheeling, no EPS otherwise. Good skin turgor, MMM. TP perseverative on delusional themes. Grooming and hygiene fair. Labs Patient refuses labs. Vitals/IOs Vital Signs Date Time Temp Pulse Resp B/P Pulse Ox O2 Delivery O2 Flow Rate FiO2 03/25/17 05:42 98.3 108 18 138/78 98 Assessment & Plan Problem List: (1) Schizoaffective disorder ICD Code: F25.9 Assessment & Plan Continue Haldol 10mg TID PO/IM supplementing Haldol Dec 150mg IM. We might consider further titration of Haldol or adding another agent. Reviewing previous MARs here, besides a few doses of Zyprexa IM, patient has received no antipsychotic other than the Haldol. Hold-down order for labs. Obtain labs as ordered by hospitalist. Appreciate needle loom setter recs. May require transfer to [facility] for IVF if fluid refusal continues. Continue to monitor on high acuity unit. Continue other medications and care as ordered. Case presented to [place] and placed in continuance x 1 week. Justification for Cont. Inpt. Impairment in self-care. Impairment in reality construction. High risk for decompensation in less restrictive environment. Discharge Planning Pending psychiatric stabilization. Request HC Surrog/Guard Advoc?: Yes Problem Qualifiers (1) Schizoaffective disorder: Qualified Code: F25.0 - Schizoaffective disorder, bipolar type Kenneth Kenndey MD Mar 25, 2017 09:28
[2017-03-25] MEDS: HALOPERIDOL LACTATE 5 MG/ML AMP IM PRN ×3 (09:48→21:46)
[2017-03-25 15:52] VITALS: BP 127/95; PULSE 81; RESP 18; TEMP 98.6; O2SAT 100
[2017-03-25] MEDS: DIVALPROEX DR 500 MG TABEC PO SCH (21:00)
[2017-03-25] MEDS: BENZTROPINE MESYLATE 1 MG TAB PO SCH (21:00)
[2017-03-26 06:06] VITALS: BP 122/68; PULSE 115; RESP 18; TEMP 98; O2SAT 100
[2017-03-26] MEDS: HALOPERIDOL 10 MG TAB PO SCH (09:00)
[2017-03-26] MEDS: DIVALPROEX DR 500 MG TABEC PO SCH ×2 (09:00→21:00)
[2017-03-26] MEDS: HALOPERIDOL LACTATE 5 MG/ML AMP IM PRN (09:27)
[2017-03-26 09:51] LABS: HEMATOCRIT 40.3 % (35.0-46.0); MEAN CELL VOLUME 90.7 FL (80.0-100.0); MEAN CORPUSCULAR HEMOGLOBIN 29.5 PG (27.0-34.0); MEAN CORPUSCULAR HGB CONC 32.5 % (32.0-36.0); PLATELET COUNT 367 TH/MM3 (150-450); RED BLOOD COUNT 4.44 MIL/MM3 (4.00-5.30); RED CELL DISTRIBUTION WIDTH 13.3 % (11.6-17.2); REVIEW FLAG FINAL; WHITE BLOOD COUNT 7.1 TH/MM3 (4.0-11.0)
[2017-03-26 10:14] LABS: ANION GAP 12 MEQ/L (5-15); BICARBONATE 25.1 MEQ/L (21.0-32.0); BLOOD UREA NITROGEN 17 MG/DL (7-18); CHLORIDE 106 MEQ/L (98-107); GLOMERULAR FILTRATION RATE 108 ML/MIN (>89); POTASSIUM 3.1 MEQ/L (3.5-5.1); SODIUM (NA) 143 MEQ/L (136-145)
--- NOTE | 2017-03-26 11:54 | HHI.PYPN ---
Subjective Remarks Patient seen and examined with counselor and nurse. Chart reviewed. Case discussed with nursing staff who reports patient continues to refuse food and fluids. She also has reportedly been calling various government agencies to complain about the hold down order for labs, even though nurse reassures me that the patient was not restrained to obtain the labs. On my examination, patient is irritable, paranoid, argumentative. She continues to perseverate on the Haldol. I discuss with her that the Haldol does not seem to be helping much with her psychosis and try to engage her in a discussion of alternative options, but she refuses to engage in such a discussion. I encourage PO intake , particularly in light of her hypokalemia, but the patient insists "I don't have hypokalemia. I know it. I just know." No side effects from medications. No physical complaints. Review of Systems ROS Limitations: Psychotic, Poor Historian Except as stated in HPI: all other systems reviewed are Neg Objective Alert: Yes [place]: Person, Place Mood: Agitated, Angry, Oppositional Affect: Restricted Memory Intact: Comment (not formally assessd) Hallucinations: Other (No AVH) Delusions: Yes Delusion Type: Paranoid, Other (hinduism) Suicidal: Ideation (No SI) Homicidal: Ideation (No HI) Insight/Judgment Poor Remarks No motor abnormalities appreciated. Grooming and hygiene fair. Thought process perseverative on delusional themes. Labs Test 03/26/17 09:12 White Blood Count 7.1 TH/MM3 Red Blood Count 4.44 MIL/MM3 Hemoglobin 13.1 GM/DL Hematocrit 40.3 % Mean Corpuscular Volume 90.7 FL Mean Corpuscular Hemoglobin 29.5 PG Mean Corpuscular Hemoglobin 32.5 % Concent Red Cell Distribution Width 13.3 % Platelet Count 367 TH/MM3 Mean Platelet Volume 7.9 FL Sodium Level 143 MEQ/L Potassium Level 3.1 MEQ/L Chloride Level 106 MEQ/L Carbon Dioxide Level 25.1 MEQ/L Anion Gap 12 MEQ/L Blood Urea Nitrogen 17 MG/DL Creatinine 0.70 MG/DL Estimat Glomerular Filtration 108 ML/MIN Rate Random Glucose 86 MG/DL Calcium Level 9.3 MG/DL Thyroid Stimulating Hormone 1.220 uIU/ML 3rd Gen Labs reviewed. Hypokalemia noted. Replacement potassium has been ordered by the hospitalist if the patient will accept it, and I have encouraged her to do so. Vitals/IOs Vital Signs Date Time Temp Pulse Resp B/P Pulse Ox O2 Delivery O2 Flow Rate FiO2 03/26/17 06:06 98.0 115 18 122/68 100 Intake and Output 03/25/17 03/25/17 03/26/17 08:00 16:00 00:00 Intake Total 0 ml 0 ml Balance 0 ml 0 ml Assessment & Plan Problem List: (1) Schizoaffective disorder ICD Code: F25.9 Assessment & Plan [facility] as patient refusing food/fluids and is at high risk for medical compromise as a result. Replace Haldol due to lack of effect with Zyprexa PO/IM. Zyprexa 5mg BID PO/IM with plans to titrate through the weekend. Haldol Dec 150mg on board. Digital Sales Assistant consult pending. Continue to encourage PO intake. Continue other medications and care as ordered. Justification for Cont. Inpt. Impairment in self-care. Impairment in reality construction. Medication changes in process. High risk for decompensation and less restrictive environment. Discharge Planning Pending psychiatric stabilization. Request HC Surrog/Guard Advoc?: Yes Problem Qualifiers (1) Schizoaffective disorder: Qualified Code: F25.0 - Schizoaffective disorder, bipolar type Kenneth Kennedy MD Mar 26, 2017 11:54
[2017-03-26] MEDS ORDERED: POTASSIUM CHLORIDE 25 MEQ EFFERVESCENT TAB PO ONE (12:00)
[2017-03-26 15:59] LABS: HEMOGLOBIN A1b 0.7 %; HEMOGLOBIN Ao 86.9 %; HEMOGLOBIN F 0.8 %; HEMOGLOBIN LA1C 1.7 %; HEMOGLOBIN P3 3.2 %
[2017-03-26 16:14] VITALS: PULSE 112
[2017-03-26 17:48] VITALS: BP 144/80; PULSE 80; RESP 18; TEMP 98.4; O2SAT 99
[2017-03-26] MEDS: BENZTROPINE MESYLATE 1 MG TAB PO SCH (21:00)
[2017-03-26] MEDS: OLANZapine 5 MG TAB PO SCH (21:00)
[2017-03-27] MEDS: OLANZapine IM 10 MG VIAL IM PRN ×2 (08:11→21:14)
[2017-03-27] MEDS: DIVALPROEX DR 500 MG TABEC PO SCH ×2 (08:52→21:00)
[2017-03-27] MEDS: OLANZapine 5 MG TAB PO SCH ×2 (08:53→21:00)
[2017-03-27] MEDS ORDERED: POTASSIUM CHLORIDE 25 MEQ EFFERVESCENT TAB PO ONE (09:00)
[2017-03-27 12:06] LABS: ANION GAP 12 MEQ/L (5-15); BICARBONATE 25.1 MEQ/L (21.0-32.0); BLOOD UREA NITROGEN 22 MG/DL (7-18); CHLORIDE 108 MEQ/L (98-107); GLOMERULAR FILTRATION RATE 72 ML/MIN (>89); SODIUM (NA) 145 MEQ/L (136-145)
[2017-03-27 12:15] LABS: POTASSIUM 2.9 MEQ/L (3.5-5.1)
[2017-03-27] MEDS ORDERED: POTASSIUM CHLOR 20 MEQ PREMIX 100 ML IV SCH (12:45)
--- NOTE | 2017-03-27 13:17 | HHI.PYPN ---
Subjective Remarks Pt seen and discussed with staff.Pt remains psychotic and delusional. She is hyperreligious and has been preaching on unit. She read her bible to RN during med pass. She refused oral medications and received zyprexa IM. She continues to refuse potassium replacement. Lab today was 2.9. Explained in depth seriousness of hypokalemia. Pt refuses to take oral potassium but did agree to IV. Pt was sent to med/psych unit for potassium replacement but will return to 2700 unit once therapy is complete. No SI/HI. Objective Alert: Yes [place]: Person, Place Mood: Agitated, Other (euphoric) Affect: Other (expansive) Memory Intact: Comment (not formally assessd) Hallucinations: Other (No AVH) Delusions: Yes Delusion Type: Paranoid, Other (advent) Suicidal: Ideation (No SI) Homicidal: Ideation (No HI) Insight/Judgment poor Labs Test 03/27/17 10:34 Sodium Level 145 MEQ/L Potassium Level 2.9 MEQ/L Chloride Level 108 MEQ/L Carbon Dioxide Level 25.1 MEQ/L Anion Gap 12 MEQ/L Blood Urea Nitrogen 22 MG/DL Creatinine 1.00 MG/DL Estimat Glomerular Filtration 72 ML/MIN Rate Random Glucose 81 MG/DL Calcium Level 9.3 MG/DL Ammonia LESS THAN 10 MCMOL/L Valproic Acid (Depakene) Level LESS THAN 3 MCG/ML Vitals/IOs Vital Signs Date Time Temp Pulse Resp B/P Pulse Ox O2 Delivery O2 Flow Rate FiO2 03/26/17 17:48 98.4 80 18 144/80 99 Intake and Output 03/26/17 03/26/17 03/27/17 08:00 16:00 00:00 Intake Total 0 ml Balance 0 ml Assessment & Plan Problem List: (1) Schizoaffective disorder ICD Code: F25.9 Assessment & Plan Continue current tx plan. Estimated LOS: days Justification for Cont. Inpt. impairments in reality construction and self care Request HC Surrog/Guard Advoc?: Yes Problem Qualifiers (1) Schizoaffective disorder: Qualified Code: F25.0 - Schizoaffective disorder, bipolar type Sobeida Hernandez MD Mar 27, 2017 13:17
[2017-03-27] MEDS ORDERED: POTASSIUM CHLOR 20 MEQ PREMIX 100 ML IV ONE (14:15)
[2017-03-27] MEDS ORDERED: SODIUM CHLORID 0.9% 500 ML INJ 500 ML IV SCH (14:15)
[2017-03-27 18:00] VITALS: BP 111/66; PULSE 84; RESP 16; TEMP 99.1; O2SAT 96
--- NOTE | 2017-03-27 18:03 | HHI.PR ---
Subjective Remarks Follow-up visit hypokalemia, HTN. Patient seen and examined today. Inpatient psychiatry to medical psych unit secondary to noncompliance of taking by mouth medications. She was started on potassium IV infusion. Patient states she is doing okay. Discuss with patient compliance with medication but she brushes off the topic states she is okay without taking anything and she is okay with IV infusion. Denies pain and discomfort. Denies SOB/ dyspnea. Denies chest pain, palpitations, headaches, dizziness. Denies fevers, chills, n/v/d. Denies dysuria. Objective Vitals I/O 03/26/17 03/26/17 03/26/17 03/27/17 03/27/17 03/27/17 07:00 15:00 23:00 07:00 15:00 23:00 Intake Total 0 ml 0 ml Balance 0 ml 0 ml Intake Oral 0 ml 0 ml # Voids 0 Result Diagram: 03/26/17 0912 03/27/17 1034 Objective Remarks GENERAL: This is a well-nourished, well-developed patient, in no apparent distress. SKIN: Warm and dry. HEENT: Normocephalic. Pupils equal round and reactive. Nose without bleeding. Airway patent. NECK: Trachea midline. CARDIOVASCULAR: Tachycardia without murmurs, gallops, or rubs. RESPIRATORY: Clear to auscultation. Breath sounds equal bilaterally. No wheezes , rales, or rhonchi. GASTROINTESTINAL: Abdomen soft, non-tender, nondistended. Bowel Sounds normoactive x4. MUSCULOSKELETAL: Extremities without clubbing, cyanosis, or edema. NEUROLOGICAL: Awake and alert. Agitated. No focal neuro deficit. Moves all extremities. Normal speech. A/P Problem List: (1) Hypertension ICD Code: I10 Status: Chronic (2) Hypokalemia ICD Code: E87.6 Status: Acute (3) Schizoaffective disorder ICD Code: F25.9 Status: Acute (4) Mood disorder ICD Code: F39 Status: Acute Assessment and Plan 46-year-old female patient with schizoaffective disorder admitted to inpatient psychiatry for worsening psychosis, hospitalist consulted to manage the following Elevated BP: Blood pressure has been consistently elevated with intermittent tachycardia. Clonidine patch started. Tachycardia is possibly related to agitation continue to monitor BP Restart home med Norvasc once patient takes by mouth. TSH 1.490 Hypokalemia: Potassium 3.1 --> 2.9. Mg 2.3 - Patient refusing to take pill and effervescent. - KCL IV 60 MEQ total ordered. Repeat labs in AM - Noncompliant. She has prior orders of PO potassium but has been refusing. Schizoaffective disorder with psychosis: per psych Discussed with patient, staff and Dr. Hayden Problem Qualifiers (1) Schizoaffective disorder: Qualified Code: F25.0 - Schizoaffective disorder, bipolar type Lee Brady [facility] Mar 27, 2017 18:03
[2017-03-27] MEDS: BENZTROPINE MESYLATE 1 MG TAB PO SCH (21:00)
[2017-03-28 06:07] VITALS: BP 117/58; PULSE 82; RESP 14; TEMP 98.3; O2SAT 95
--- NOTE | 2017-03-28 08:13 | HHI.PYPN ---
Subjective Remarks Patient seen today on 4 E., med/psych unit, with nurse Juany. Patient calm cooperative with me though she is showing noncompliance with the medication but into her marked decrease in potassium necessitating the transferred to this unit. She does denies suicidality homicidality or voices with me today. Is showing some incongruous affect when attempting to discuss her poor medication compliance. For now continue encouraging cooperation Review of Systems Except as stated in HPI: all other systems reviewed are Neg Objective Alert: Yes [place]: Person, Place Mood: Agitated, Other (euphoric) Affect: Other (expansive) Memory Intact: Comment (not formally assessd) Hallucinations: Other (No AVH) Delusions: Yes Delusion Type: Paranoid, Other (pentecostal) Suicidal: Ideation (No SI) Homicidal: Ideation (No HI) Insight/Judgment Poor Labs Test 03/27/17 10:34 Sodium Level 145 MEQ/L Potassium Level 2.9 MEQ/L Chloride Level 108 MEQ/L Carbon Dioxide Level 25.1 MEQ/L Anion Gap 12 MEQ/L Blood Urea Nitrogen 22 MG/DL Creatinine 1.00 MG/DL Estimat Glomerular Filtration 72 ML/MIN Rate Random Glucose 81 MG/DL Calcium Level 9.3 MG/DL Ammonia LESS THAN 10 MCMOL/L Valproic Acid (Depakene) Level LESS THAN 3 MCG/ML Vitals/IOs Vital Signs Date Time Temp Pulse Resp B/P Pulse Ox O2 Delivery O2 Flow Rate FiO2 03/28/17 06:07 98.3 82 14 117/58 95 Intake and Output 03/27/17 03/27/17 03/27/17 07:59 15:59 23:59 Intake Total 480 ml Balance 480 ml Assessment & Plan Problem List: (1) Schizoaffective disorder ICD Code: F25.9 Assessment & Plan Estimated LOS: days patient continues to show noncompliance of medication level voices no significant behavioral problems. Showing no insight into her disease. For now continue encouragement Justification for Cont. Inpt. At this time patient will decompensate if placed in the lower level of care Discharge Planning To be determined Request HC Surrog/Guard Advoc?: Yes Problem Qualifiers (1) Schizoaffective disorder: Qualified Code: F25.0 - Schizoaffective disorder, bipolar type Colin Riley MD Mar 28, 2017 08:13
[2017-03-28 08:55] LABS: BICARBONATE 25.4 MEQ/L (21.0-32.0); POTASSIUM 3.3 MEQ/L (3.5-5.1)
[2017-03-28] MEDS: DIVALPROEX DR 500 MG TABEC PO SCH ×2 (08:56→20:26)
[2017-03-28] MEDS: OLANZapine 5 MG TAB PO SCH ×2 (08:57→20:26)
[2017-03-28] MEDS: OLANZapine IM 10 MG VIAL IM PRN ×2 (08:57→21:15)
[2017-03-28] MEDS: POTASSIUM CHLOR 20 MEQ PREMIX 100 ML IV SCH ×2 (09:57→12:00)
[2017-03-28] MEDS: DEXTROSE 5% IN WATE 1000ML INJ 1,000 ML IV SCH (09:58)
--- NOTE | 2017-03-28 11:54 | HHI.PR ---
Subjective Remarks Follow-up visit for hypokalemia, hypertension. Patient seen and examined today. She is laying in bed. She states that she is doing well. She states she didn't eat her breakfast. She doesn't have any appetite. Patient revealed an prior visits that she gets upset when people brings up topic that she doesn' t eat because she states "I'm a bit girl, even if I don't eat it doesn't show and maybe I could lose some weight." Discussed with patient options if she wants to eat low calorie diet, salad. Agreeable to have salad. Otherwise, denies pain and discomfort. Denies SOB/ dyspnea. Denies chest pain, palpitations, headaches, dizziness. Denies fevers, chills, n/v/d. Objective Vitals Vital Signs Date Time Temp Pulse Resp B/P Pulse Ox O2 Delivery O2 Flow Rate FiO2 03/28/17 06:07 98.3 82 14 117/58 95 03/27/17 18:00 99.1 84 16 111/66 96 I/O 03/27/17 03/27/17 03/27/17 03/28/17 03/28/17 03/28/17 07:00 15:00 23:00 07:00 15:00 23:00 Intake Total 480 ml 765 ml Balance 480 ml 765 ml Intake Oral 480 ml IV Total 765 ml # Voids 1 1 Result Diagram: 03/26/17 0912 03/28/17 0740 Objective Remarks GENERAL: This is a well-nourished, well-developed patient, in no apparent distress. SKIN: Warm and dry. HEENT: Normocephalic. Pupils equal round and reactive. Nose without bleeding. Airway patent. NECK: Trachea midline. CARDIOVASCULAR: Tachycardia without murmurs, gallops, or rubs. RESPIRATORY: Clear to auscultation. Breath sounds equal bilaterally. No wheezes , rales, or rhonchi. GASTROINTESTINAL: Abdomen soft, non-tender, nondistended. Bowel Sounds normoactive x4. MUSCULOSKELETAL: Extremities without clubbing, cyanosis, or edema. NEUROLOGICAL: Awake and alert. Agitated. No focal neuro deficit. Moves all extremities. Normal speech. A/P Problem List: (1) Hypertension ICD Code: I10 Status: Chronic (2) Hypokalemia ICD Code: E87.6 Status: Acute (3) Schizoaffective disorder ICD Code: F25.9 Status: Acute (4) Mood disorder ICD Code: F39 Status: Acute Assessment and Plan 46-year-old female patient with schizoaffective disorder admitted to inpatient psychiatry for worsening psychosis, hospitalist consulted to manage the following Elevated BP: Blood pressure has been consistently elevated with intermittent tachycardia. Clonidine patch started. Tachycardia is possibly related to agitation continue to monitor BP Restart home med Norvasc once patient takes by mouth. TSH 1.490 Hypokalemia: Potassium 3.1 --> 2.9. Mg 2.3 - Patient refusing to take pill and effervescent. - KCL IV 60 MEQ total ordered. Repeat labs in AM - Noncompliant. She has prior orders of PO potassium but has been refusing. Schizoaffective disorder with psychosis: per psych Discussed with patient, staff and Dr. Hayden Problem Qualifiers (1) Schizoaffective disorder: Qualified Code: F25.0 - Schizoaffective disorder, bipolar type Lee Brady Mar 28, 2017 11:54
--- NOTE | 2017-03-28 17:24 | HHI.PR ---
Subjective Remarks She is seen in the bed, watching TV appears in not acute distress. She is telling me she is eating much better today. Denies having any chest pain or palpitations. No muscle weakness. No nausea, vomiting, diarrhea or constipation. Objective Vitals Vital Signs Date Time Temp Pulse Resp B/P Pulse Ox O2 Delivery O2 Flow Rate FiO2 03/28/17 06:07 98.3 82 14 117/58 95 03/27/17 18:00 99.1 84 16 111/66 96 I/O 03/27/17 03/27/17 03/27/17 03/28/17 03/28/17 03/28/17 07:00 15:00 23:00 07:00 15:00 23:00 Intake Total 480 ml 765 ml Balance 480 ml 765 ml Intake Oral 480 ml IV Total 765 ml # Voids 1 1 Result Diagram: 03/26/17 0912 03/28/17 0740 Objective Remarks GENERAL: This is a well-nourished, well-developed patient, in no apparent distress. CARDIOVASCULAR: Tachycardia without murmurs, gallops, or rubs. RESPIRATORY: Clear to auscultation. Breath sounds equal bilaterally. No wheezes , rales, or rhonchi. GASTROINTESTINAL: Abdomen soft, non-tender, nondistended. Bowel Sounds normoactive x4. MUSCULOSKELETAL: Extremities without clubbing, cyanosis, or edema. NEUROLOGICAL: Awake and alert. Agitated. No focal neuro deficit. Moves all extremities. Normal speech. A/P Problem List: (1) Hypertension ICD Code: I10 Status: Chronic (2) Hypokalemia ICD Code: E87.6 Status: Acute (3) Schizoaffective disorder ICD Code: F25.9 Status: Acute (4) Mood disorder ICD Code: F39 Status: Acute Assessment and Plan 46-year-old female patient with schizoaffective disorder admitted to inpatient psychiatry for worsening psychosis, hospitalist consulted to manage the following Elevated BP: Blood pressure has been consistently elevated with intermittent tachycardia. Clonidine patch started. Tachycardia is possibly related to agitation Continue to monitor BP Restart home med Norvasc once patient takes by mouth. TSH 1.490 Hypokalemia: Potassium 3.3 - Patient refusing to take pill and effervescent. - KCL IV 40 MEQ total ordered. Repeat labs in AM - Noncompliant. She has prior orders of PO potassium but has been refusing. Schizoaffective disorder with psychosis: per psych Discussed with patient, nurse Problem Qualifiers (1) Schizoaffective disorder: Qualified Code: F25.0 - Schizoaffective disorder, bipolar type Delmi Hayden MD Mar 28, 2017 17:24
[2017-03-28 17:30] VITALS: BP 123/72; PULSE 81; RESP 18; TEMP 97.4; O2SAT 100
[2017-03-28] MEDS: BENZTROPINE MESYLATE 1 MG TAB PO SCH (20:26)
[2017-03-28 23:41] LABS: POTASSIUM 3.5 MEQ/L (3.5-5.1)
[2017-03-29 04:51] VITALS: BP 132/61; PULSE 67; RESP 15; TEMP 98.7; O2SAT 97
[2017-03-29] MEDS: DIVALPROEX DR 500 MG TABEC PO SCH ×2 (07:40→21:00)
[2017-03-29] MEDS: DEXTROSE 5% IN WATE 1000ML INJ 1,000 ML IV SCH (08:33)
--- NOTE | 2017-03-29 08:34 | HHI.PR ---
Subjective Remarks Feels improved says she is trying to eat better. Repeat K level back to normal. No palpitations. n/v/d/c. Denies chest pain. Objective Vitals Vital Signs Date Time Temp Pulse Resp B/P Pulse Ox O2 Delivery O2 Flow Rate FiO2 03/29/17 04:51 98.7 67 15 132/61 97 03/28/17 17:30 97.4 81 18 123/72 100 I/O 03/28/17 03/28/17 03/28/17 03/29/17 03/29/17 03/29/17 06:59 14:59 22:59 06:59 14:59 22:59 Intake Total 765 ml 0 ml Balance 765 ml 0 ml Intake Oral 0 ml IV Total 765 ml # Voids 1 2 1 Result Diagram: 03/26/17 0912 03/28/170 Objective Remarks GENERAL: This is a well-nourished, well-developed patient, in no apparent distress. CARDIOVASCULAR: Tachycardia without murmurs, gallops, or rubs. RESPIRATORY: Clear to auscultation. Breath sounds equal bilaterally. No wheezes , rales, or rhonchi. GASTROINTESTINAL: Abdomen soft, non-tender, nondistended. Bowel Sounds normoactive x4. MUSCULOSKELETAL: Extremities without clubbing, cyanosis, or edema. NEUROLOGICAL: Awake and alert. Agitated. No focal neuro deficit. Moves all extremities. Normal speech. A/P Problem List: (1) Hypertension ICD Code: I10 Status: Chronic (2) Hypokalemia ICD Code: E87.6 Status: Acute (3) Schizoaffective disorder ICD Code: F25.9 Status: Acute (4) Mood disorder ICD Code: F39 Status: Acute Assessment and Plan 46-year-old female patient with schizoaffective disorder admitted to inpatient psychiatry for worsening psychosis, hospitalist consulted to manage the following Elevated BP: Blood pressure has been consistently elevated with intermittent tachycardia. Clonidine patch. Tachycardia is possibly related to agitation, hypokalemia? Continue to monitor BP Restart home med Norvasc once patient takes by mouth. TSH 1.490 Hypokalemia: Potassium 3.3 replaced and repeat back to normal, will monitor and replace as need Patient refusing to take pill and effervescent. Received KCL IV 40 MEQ total ordered. Repeat labs in AM Noncompliant. She has prior orders of PO potassium but has been refusing. Schizoaffective disorder with psychosis: per psych Discussed with patient, nurse Problem Qualifiers (1) Schizoaffective disorder: Qualified Code: F25.0 - Schizoaffective disorder, bipolar type Delmi Hayden MD Mar 29, 2017 08:34
[2017-03-29] MEDS: OLANZapine 5 MG TAB PO SCH ×2 (09:00→21:00)
[2017-03-29] MEDS: OLANZapine IM 10 MG VIAL IM PRN ×2 (10:10→21:26)
--- NOTE | 2017-03-29 10:40 | PD.TTN ---
Present for Treatment Team Treatment Team Staff: Provider, Nurse, Psych Therapist, Occupational Therapist Patient Problems 1. Discharge planning 2. Medication compliance 3. Knowledge deficit 4. Lack of coping skills Progress Toward Goals Provider Input: Dr. Morales, treating psychiatrist is encouraging patient with her medications which the nurse reported is not taking and her meals which has refused to eat. Per doctor, patient's medication is being altered to assist with her mood, patient's appetite, and sleep. Nurse Input: Lisa Chilel RN reports that patient is not eating meals and is only taking her medication via IV. Nurse reports that patient is religiously preoccupied, with appears of responding to visual and auditory hallucination. Psych Therapist Input: Counselor will contact facility to see if patient is able to return when stable, and reach out to family. Occupational Therapist Input: ARELIS Donnelly will set up off unit activities for patient Documentation Teaching Recipient: Patient Cassidy Bai [facility] Mar 29, 2017 10:40
[2017-03-29] MEDS: cloNIDine HCL 0.1 MG/24 HR PATCH T-DERMAL SCH (14:00)
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
[2017-03-29 18:00] VITALS: BP 121/80; PULSE 74; RESP 16; TEMP 98.5; O2SAT 100
[2017-03-29] MEDS: BENZTROPINE MESYLATE 1 MG TAB PO SCH (21:00)
[2017-03-30] MEDS: DEXTROSE 5% IN WATE 1000ML INJ 1,000 ML IV SCH ×4 (04:40→17:53)
[2017-03-30 05:19] VITALS: BP 99/53; PULSE 80; RESP 18; TEMP 99.1; O2SAT 96
--- NOTE | 2017-03-30 09:10 | HHI.PR ---
Subjective Remarks Patien tin bed, smiling. Says she is trying to eat better. K noted low again. No n/v/d/c. No fever or chills. Objective Vitals Vital Signs Date Time Temp Pulse Resp B/P Pulse Ox O2 Delivery O2 Flow Rate FiO2 03/30/17 05:19 99.1 80 18 99/53 96 03/29/17 18:00 98.5 74 16 121/80 100 I/O 03/29/17 03/29/17 03/29/17 03/30/17 03/30/17 03/30/17 07:00 15:00 23:00 07:00 15:00 23:00 Intake Total 360 ml 1005 ml 600 ml Balance 360 ml 1005 ml 600 ml Intake Oral 360 ml 120 ml 600 ml IV Total 885 ml # Voids 1 2 2 Result Diagram: 03/26/1712 03/28/170 Objective Remarks GENERAL: This is a well-nourished, well-developed patient, in no apparent distress. CARDIOVASCULAR: Tachycardia without murmurs, gallops, or rubs. RESPIRATORY: Clear to auscultation. Breath sounds equal bilaterally. No wheezes , rales, or rhonchi. GASTROINTESTINAL: Abdomen soft, non-tender, nondistended. Bowel Sounds normoactive x4. MUSCULOSKELETAL: Extremities without clubbing, cyanosis, or edema. NEUROLOGICAL: Awake and alert. Agitated. No focal neuro deficit. Moves all extremities. Normal speech. A/P Problem List: (1) Hypertension ICD Code: I10 Status: Chronic (2) Hypokalemia ICD Code: E87.6 Status: Acute (3) Schizoaffective disorder ICD Code: F25.9 Status: Acute (4) Mood disorder ICD Code: F39 Status: Acute Assessment and Plan 46-year-old female patient with schizoaffective disorder admitted to inpatient psychiatry for worsening psychosis, hospitalist consulted to manage the following Elevated BP: Blood pressure has been consistently elevated with intermittent tachycardia. Clonidine patch. Tachycardia is possibly related to agitation, hypokalemia? Continue to monitor BP Restart home med Norvasc once patient takes by mouth. TSH 1.490 Hypokalemia: Potassium 3.2 (03/30) Patient refusing to take pill or effervescent. Will give KCL IV 40 MEQ if not taking PO. Repeat labs in AM Noncompliant. She has prior orders of PO potassium but has been refusing. Schizoaffective disorder with psychosis: per psych Discussed with patient, nurse Problem Qualifiers (1) Schizoaffective disorder: Qualified Code: F25.0 - Schizoaffective disorder, bipolar type Delmi Hayden MD Mar 30, 2017 09:10
[2017-03-30] MEDS: DIVALPROEX DR 500 MG TABEC PO SCH ×2 (09:22→21:58)
[2017-03-30] MEDS: OLANZapine 5 MG TAB PO SCH ×2 (09:22→21:58)
[2017-03-30 10:31] LABS: AUTOMATED NEUTROPHIL # 2.5 TH/MM3 (1.8-7.7); BASOPHIL % 0.6 % (0.0-2.0); EOSINOPHIL # 0.1 TH/MM3 (0-0.4); EOSINOPHIL % 2.3 % (0.0-4.0); HEMATOCRIT 37.8 % (35.0-46.0); HEMO FLAGS DIFF FINAL; LYMPH % 27.8 % (9.0-44.0); LYMPHOCYTE # 1.4 TH/MM3 (1.0-4.8); MEAN CELL VOLUME 89.9 FL (80.0-100.0); MEAN CORPUSCULAR HEMOGLOBIN 29.1 PG (27.0-34.0); MEAN CORPUSCULAR HGB CONC 32.3 % (32.0-36.0); NEUT % 52.3 % (16.0-70.0); PLATELET COUNT 271 TH/MM3 (150-450); RED CELL DISTRIBUTION WIDTH 13.1 % (11.6-17.2); WHITE BLOOD COUNT 4.9 TH/MM3 (4.0-11.0)
[2017-03-30 10:37] LABS: BICARBONATE 30.4 MEQ/L (21.0-32.0); MAGNESIUM 2.3 MG/DL (1.5-2.5); POTASSIUM 3.2 MEQ/L (3.5-5.1)
[2017-03-30] MEDS ORDERED: POTASSIUM CHLORIDE 10 MEQ CONTROLLED RELEASE TAB PO ONE (16:00)
[2017-03-30] MEDS: POTASSIUM CHLOR 20 MEQ PREMIX 100 ML IV SCH ×2 (16:29→16:49)
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
[2017-03-30 18:43] VITALS: BP 114/70; PULSE 85; RESP 17; TEMP 98; O2SAT 99
[2017-03-30] MEDS: BENZTROPINE MESYLATE 1 MG TAB PO SCH (21:58)
[2017-03-31] MEDS: DEXTROSE 5% IN WATE 1000ML INJ 1,000 ML IV SCH (00:33)
[2017-03-31 05:48] VITALS: BP 114/62; PULSE 73; RESP 16; TEMP 97.2; O2SAT 100
[2017-03-31] MEDS: DIVALPROEX DR 500 MG TABEC PO SCH ×2 (09:00→21:01)
[2017-03-31] MEDS: OLANZapine 5 MG TAB PO SCH ×2 (09:00→21:01)
--- NOTE | 2017-03-31 09:06 | HHI.PR ---
Subjective Remarks K is still low. Patient took PO meds. Patient says she is eating better. Denies having any palpitations, n/v/d/c. No fever or chills. Objective Vitals Vital Signs Date Time Temp Pulse Resp B/P Pulse Ox O2 Delivery O2 Flow Rate FiO2 03/31/17 05:48 97.2 73 16 114/62 100 03/30/17 18:43 98.0 85 17 114/70 99 I/O 03/30/17 03/30/17 03/30/17 03/31/17 03/31/17 03/31/17 07:00 15:00 23:00 07:00 15:00 23:00 Intake Total 1005 ml 2160 ml 1080 ml 1650 ml 960 ml Balance 1005 ml 2160 ml 1080 ml 1650 ml 960 ml Intake Oral 120 ml 2160 ml 1080 ml 900 ml 960 ml IV Total 885 ml 750 ml # Voids 2 4 2 Result Diagram: 03/30/17 0945 03/30/17 0745 Objective Remarks GENERAL: This is a well-nourished, well-developed patient, in no apparent distress. CARDIOVASCULAR: Tachycardia without murmurs, gallops, or rubs. RESPIRATORY: Clear to auscultation. Breath sounds equal bilaterally. No wheezes , rales, or rhonchi. GASTROINTESTINAL: Abdomen soft, non-tender, nondistended. Bowel Sounds normoactive x4. MUSCULOSKELETAL: Extremities without clubbing, cyanosis, or edema. NEUROLOGICAL: Awake and alert. Agitated. No focal neuro deficit. Moves all extremities. Normal speech. A/P Problem List: (1) Hypertension ICD Code: I10 Status: Chronic (2) Hypokalemia ICD Code: E87.6 Status: Acute (3) Schizoaffective disorder ICD Code: F25.9 Status: Acute (4) Mood disorder ICD Code: F39 Status: Acute Assessment and Plan 46-year-old female patient with schizoaffective disorder admitted to inpatient psychiatry for worsening psychosis, hospitalist consulted to manage the following Elevated BP: Blood pressure has been consistently elevated with intermittent tachycardia. Clonidine patch. Tachycardia is possibly related to agitation, hypokalemia? Continue to monitor BP Restart home med Norvasc once patient takes by mouth. TSH 1.490 Hypokalemia: Potassium 3.0 (03/31) Noncompliant. She has prior orders of PO potassium but has been refusing, it seems takes PO now . Start 1/2 NS with 20 mEq at 84 cc/hr Schizoaffective disorder with psychosis: per psych Discussed with patient, nurse Problem Qualifiers (1) Schizoaffective disorder: Qualified Code: F25.0 - Schizoaffective disorder, bipolar type Delmi Hayden MD Mar 31, 2017 09:06
[2017-03-31 09:29] LABS: BICARBONATE 29.3 MEQ/L (21.0-32.0)
--- NOTE | 2017-03-31 10:39 | HHI.PYPN ---
Subjective Remarks Patient seen for follow-up with nurse and counselor; chart reviewed. As per nursing report patient less religiously preoccupied, eating about 20% of her meals now, taking by mouth meds since yesterday and has been noted to be pleasant. Patient was found in room, sitting up on hospital bed, patient states that she has slept well last night and reports that yesterday she had gone to group therapy which she enjoyed and during group states that she was able to reflect on her positive attribute as a person and her future goals which include wanting to go back to school and study theology. She states that she plans on continuing treatment, continuing eating her meals, and upon discharge plans on continuing with outpatient follow-up. Patient reports feeling well with current treatment regimen, denies any adverse drug reactions. Ms. Mchugh from her from her living facility plans on coming to visit the patient tomorrow but has reported back to our team that patient is welcome back upon discharge. Patient at this time reports feeling good denies any SI, HI, AVH or delusions. Patient continues to have firm bahai beliefs but no longer perseverative on praising or praying out loud. Review of Systems Except as stated in HPI: all other systems reviewed are Neg Other Denies any somatic complaint Objective Alert: Yes [place]: Person, Place, Date Mood: Calm Affect: Euthymic Memory Intact: Comment (not formally assessd) Hallucinations: Other (No AVH) Delusions: No Delusion Type: Other Suicidal: Ideation (No SI) Homicidal: Ideation (No HI) Insight/Judgment Improved insight, fair impulse control, improved judgment. Labs Test 03/31/17 07:16 Sodium Level 138 MEQ/L Potassium Level 3.0 MEQ/L Chloride Level 100 MEQ/L Carbon Dioxide Level 29.3 MEQ/L Anion Gap 9 MEQ/L Blood Urea Nitrogen 12 MG/DL Creatinine 0.71 MG/DL Estimat Glomerular Filtration 106 ML/MIN Rate Random Glucose 113 MG/DL Calcium Level 8.6 MG/DL Vitals/IOs Vital Signs Date Time Temp Pulse Resp B/P Pulse Ox O2 Delivery O2 Flow Rate FiO2 03/31/17 05:48 97.2 73 16 114/62 100 Intake and Output 03/30/17 03/30/17 03/31/17 08:00 16:00 00:00 Intake Total 1005 ml 2160 ml 1860 ml Balance 1005 ml 2160 ml 1860 ml Assessment & Plan Problem List: (1) Schizoaffective disorder ICD Code: F25.9 Assessment & Plan Estimated LOS: 3-5 days patient at this time seems to to be improving, is now compliant with treatment and increasing her nutritional intake by mouth. Patient initially had bahai delusions and preoccupation but now has noted less perseveration on church and appears to returning back to baseline. Ms. Mchugh from her living facility will come for visit tomorrow afternoon to meet with patient. Patient is welcome back to the living facility once discharged. Patient at this time has agreed to sign in voluntary status. Patient to continue current treatment regimen. Supportive psychotherapy provided. Discharge planning in process. Justification for Cont. Inpt. Patient at risk for decompensation if at a lower level of care at this time Discharge Planning In process Request HC Surrog/Guard Advoc?: Yes Problem Qualifiers (1) Schizoaffective disorder: Qualified Code: F25.0 - Schizoaffective disorder, bipolar type Arnold Morales MD Mar 31, 2017 10:39
[2017-03-31] MEDS ORDERED: POTASSIUM CHLORIDE 10 MEQ CONTROLLED RELEASE TAB PO ONE (11:15)
[2017-03-31] MEDS ORDERED: 1/2 NS + KCL 20 MEQ INJ 1,000 ML IV SCH (11:15)
[2017-03-31 18:51] VITALS: BP 125/75; PULSE 93; RESP 24; TEMP 97.7; O2SAT 98
[2017-03-31] MEDS: BENZTROPINE MESYLATE 1 MG TAB PO SCH (21:01)
[2017-04-01 05:44] VITALS: BP 104/51; PULSE 61; RESP 16; TEMP 97.8; O2SAT 95
[2017-04-01] MEDS: DIVALPROEX DR 500 MG TABEC PO SCH (08:58)
[2017-04-01] MEDS: OLANZapine 5 MG TAB PO SCH (08:58)
--- NOTE | 2017-04-01 11:36 | HHI.PR ---
Subjective Remarks Eating better. No n/v/d/c. Denies chest pain or sob. No palpitations. Objective Vitals Vital Signs Date Time Temp Pulse Resp B/P Pulse Ox O2 Delivery O2 Flow Rate FiO2 04/01/17 05:44 97.8 61 16 104/51 95 03/31/17 18:51 97.7 93 24 125/75 98 I/O 03/31/17 03/31/17 03/31/17 04/01/17 04/01/17 04/01/17 07:00 15:00 23:00 07:00 15:00 23:00 Intake Total 1650 ml 960 ml 1320 ml 100 ml Balance 1650 ml 960 ml 1320 ml 100 ml Intake Oral 900 ml 960 ml 1320 ml 100 ml IV Total 750 ml # Voids 2 2 0 # Bowel Movements 0 Result Diagram: 03/30/17 0945 03/31/17 0716 Objective Remarks GENERAL: This is a well-nourished, well-developed patient, in no apparent distress. CARDIOVASCULAR: Tachycardia without murmurs, gallops, or rubs. RESPIRATORY: Clear to auscultation. Breath sounds equal bilaterally. No wheezes , rales, or rhonchi. GASTROINTESTINAL: Abdomen soft, non-tender, nondistended. Bowel Sounds normoactive x4. MUSCULOSKELETAL: Extremities without clubbing, cyanosis, or edema. NEUROLOGICAL: Awake and alert. Agitated. No focal neuro deficit. Moves all extremities. Normal speech. A/P Problem List: (1) Hypertension ICD Code: I10 Status: Chronic (2) Hypokalemia ICD Code: E87.6 Status: Acute (3) Schizoaffective disorder ICD Code: F25.9 Status: Acute (4) Mood disorder ICD Code: F39 Status: Acute Assessment and Plan 46-year-old female patient with schizoaffective disorder admitted to inpatient psychiatry for worsening psychosis, hospitalist consulted to manage the following Elevated BP: Blood pressure has been consistently elevated with intermittent tachycardia. BP improved. Clonidine patch. Tachycardia is possibly related to agitation, hypokalemia? Continue to monitor BP Restart home med Norvasc once patient takes by mouth. TSH 1.490 Hypokalemia: Potassium 3.0 (03/31) today pending. Monitor and replace as need. However patient is noted eating better. Noncompliant. She has prior orders of PO potassium but has been refusing, it seems takes PO now . On 08/31 NS with 20 mEq at 84 cc/hr Schizoaffective disorder with psychosis: per psych Discussed with patient, nurse Problem Qualifiers (1) Schizoaffective disorder: Qualified Code: F25.0 - Schizoaffective disorder, bipolar type Delmi Hayden MD Apr 01, 2017 11:36
[2017-04-01] MEDS ORDERED: OLAN5TAB PO (15:17)
[2017-04-01] MEDS ORDERED: Benztropine PO (15:17)
[2017-04-01] MEDS ORDERED: DIVA500T PO (15:17)
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
== END 2017-04-01 17:45 | disposition home or self-care (01) | DRG 885 ==
LOC: NEPD 17:15 → NEDA 03-19 09:46 → H270 03-19 13:00 → H4EA 03-27 13:27
PROVIDERS: ADMIT Student in an Organized Health Care Education/Training Program; ATTEND Student in an Organized Health Care Education/Training Program
DX: F25.0 Schizoaffective disorder, bipolar type (principal); F23 Brief psychotic disorder; I10 Essential (primary) hypertension; E87.6 Hypokalemia; Z53.29 Procedure and treatment not carried out because of patient's decision for other reasons; R00.0 Tachycardia, unspecified; Z81.8 Family history of other mental and behavioral disorders; Z91.14 Patient's other noncompliance with medication regimen
CPT/HCPCS: 76937; 80048; 80053; 80061; 80164; 80307; 82140; 83036; 83735; 84443; 84703; 85025; 85027; 93005; J1630; J2060; J3480; J7040; J7070

== ENCOUNTER 2017-06-24 10:29 | Emergency (ER) | payer MEDICARE, OTHER ==
[~2017-06-24] VITALS: Ht 177.8 cm; Wt 150.2 kg
[~2017-06-24 10:29] MED LIST changes: +ARIP400I IM; -BENZ1TAB PO; +Benztropine PO; -HALO10 PO; -HALO100P IM; +HYDR1CAP30 PO; +MEDICAL COMPRES1 MI3
[2017-06-24 10:32] VITALS: BP 126/78; PULSE 110; RESP 18; TEMP 98.1; O2SAT 100
--- NOTE | 2017-06-24 10:57 | PD ---
HPI Chief Complaint: Psychiatric Symptoms Time Seen by Provider: 10:42 Travel History International Travel<30 days: No Contact w/Intl Traveler<30days: No Traveled to known affect area: No History of Present Illness HPI The patient was seen and examined in the presence of the nurse. This patient has history of schizoaffective/bipolar. She is brought in by 2 people from the [facility] that on the house she lives in. They report that she is not eating or sleeping. The patient denies suicidal thoughts. She denies auditory or visual hallucination. She says she has not been hungry lately and so does not want to eat because she is very overweight. Symptoms severity is mild. Duration one week. No alleviating factors. No exacerbating factors. Patient has had multiple psychiatric stays earlier this year and the concerned friends don't want this to spiral into a bad situation. Patient is agreeable to psychiatric evaluation but doesn't feel she needs it. She denies physical complaint and denies alcohol or drug use PFSH Past Medical History Anemia: Yes Blood Disorders: No Bipolar Disorder: Yes Anxiety: Yes Depression: Yes Diminished Hearing: No Endocrine: No Genitourinary: No Immune Disorder: No Musculoskeletal: No Neurologic: No Reproductive: No Respiratory: No Schizophrenia: Yes ?: Not LMP: 06/06/17 Menopausal: Yes : 2 Para: 2 Past Surgical History Arteriovenous Shunt: No Section: Yes Insulin Pump: No Neurologic Surgery: No Pacemaker: No Social History Alcohol Use: No Tobacco Use: No Substance Use: No Allergies-Medications (Allergen,Severity, Reaction): Coded Allergies: penicillin G (Verified Allergy, Mild, 06/24/17) Reported Meds & Prescriptions Reported Meds & Active Scripts Active [Benztropine] 1 MG Tab 1 Mg PO HS Reported Abilify Maintena ER Inj (Aripiprazole) 400 Mg Susp 400 Mg IM Q28D Review of Systems General / Constitutional: No: Fever Eyes: No: Visual changes HENT: No: Headaches Cardiovascular: No: Chest Pain or Discomfort Respiratory: No: Shortness of Breath Gastrointestinal: No: Abdominal Pain Genitourinary: No: Dysuria Musculoskeletal: No: Pain Skin: No Rash Neurologic: No: Weakness Psychiatric: Positive: Disorder of Thought, No: Depression Endocrine: No: Polydipsia Hematologic/Lymphatic: No: Easy Bruising Physical Exam Narrative GENERAL: Well-nourished, morbidly obese, well-developed patient in no apparent distress. SKIN: Focused skin assessment reveals no rash and nodules. Skin is Warm and dry. HEAD: Atraumatic. Normocephalic. EYES: Pupils equal and round. No scleral icterus. No injection or drainage. ENT: No nasal bleeding or discharge. Mucous membranes pink and moist. NECK: Trachea midline. No JVD. CARDIOVASCULAR: Regular rate and rhythm. No murmur appreciated. RESPIRATORY: No accessory muscle use. Clear to auscultation. Breath sounds equal bilaterally. GASTROINTESTINAL: Abdomen soft, non-tender, nondistended. Hepatic and splenic margins not palpable. MUSCULOSKELETAL: No obvious deformities. No clubbing. No cyanosis. No edema. NEUROLOGICAL: Awake and alert. No obvious cranial nerve deficits. Motor grossly within normal limits. Normal speech. PSYCHIATRIC: Appropriate mood and affect; insight and judgment seems reasonable. Data Data Last Documented VS Vital Signs Date Time Temp Pulse Resp B/P (MAP) Pulse Ox O2 Delivery O2 Flow Rate FiO2 06/24/17 15:00 90 18 132/50 (77) 97 Room Air 06/24/17 10:32 98.1 Orders Orders Complete Blood Count With Diff (06/24/17 10:49) Basic Metabolic Panel (Bmp) (06/24/17 10:49) Psych Screen (06/24/17 10:49) Drug Screen, Random Urine (06/24/17 10:49) Alcohol (Ethanol) (06/24/17 10:49) Ed Urine Pregnancytest Poc (06/24/17 10:57) Thyroid Stimulating Hormone (06/24/17 10:57) Labs Laboratory Tests Test 06/24/17 10:52 06/24/17 12:13 White Blood Count 9.6 TH/MM3 Red Blood Count 4.21 MIL/MM3 Hemoglobin 12.3 GM/DL Hematocrit 36.8 % Mean Corpuscular Volume 87.4 FL Mean Corpuscular Hemoglobin 29.2 PG Mean Corpuscular Hemoglobin Concent 33.4 % Red Cell Distribution Width 13.6 % Platelet Count 425 TH/MM3 Mean Platelet Volume 7.5 FL Neutrophils (%) (Auto) 78.7 % Lymphocytes (%) (Auto) 12.9 % Monocytes (%) (Auto) 8.0 % Eosinophils (%) (Auto) 0.1 % Basophils (%) (Auto) 0.3 % Neutrophils # (Auto) 7.6 TH/MM3 Lymphocytes # (Auto) 1.2 TH/MM3 Monocytes # (Auto) 0.8 TH/MM3 Eosinophils # (Auto) 0.0 TH/MM3 Basophils # (Auto) 0.0 TH/MM3 CBC Comment DIFF FINAL Differential Comment Blood Urea Nitrogen 9 MG/DL Creatinine 0.72 MG/DL Random Glucose 95 MG/DL Calcium Level 9.3 MG/DL Sodium Level 137 MEQ/L Potassium Level 3.6 MEQ/L Chloride Level 101 MEQ/L Carbon Dioxide Level 26.7 MEQ/L Anion Gap 9 MEQ/L Estimat Glomerular Filtration Rate 105 ML/MIN Thyroid Stimulating Hormone 3rd Gen 1.770 uIU/ML Ethyl Alcohol Level LESS THAN 3 MG/DL Urine Opiates Screen NEG Urine Barbiturates Screen NEG Urine Amphetamines Screen NEG Urine Benzodiazepines Screen NEG Urine Cocaine Screen NEG Urine Cannabinoids Screen NEG MDM Medical Decision Making Medical Screen Exam Complete: Yes Emergency Medical Condition: Yes Medical Record Reviewed: Yes Differential Diagnosis Psychosis, exacerbation of bipolar, depression Narrative Course I have reviewed the patient's electronic medical record. Patient's been hospitalized multiple times this year for psychiatric exacerbations I've ordered medical clearance workup CBC is normal Metabolic profile is normal TSH is normal Urine is negative Urine drug screen is negative Alcohol is negative I've ordered psychiatric evaluation. She is agreeable. Medical workup is negative. She is a stable as can be made. She is going to be moved to psychiatry right now. For the last several hours she has been religiously preoccupied. Diagnosis Primary Impression: Psychosis Qualified Codes: F25.0 - Schizoaffective disorder, bipolar type Kerwin Graves MD Jun 24, 2017 10:57
[2017-06-24 11:19] LABS: AUTOMATED NEUTROPHIL # 7.6 TH/MM3 (1.8-7.7); BASOPHIL % 0.3 % (0.0-2.0); EOSINOPHIL % 0.1 % (0.0-4.0); HEMATOCRIT 36.8 % (35.0-46.0); HEMOGLOBIN 12.3 GM/DL (11.6-15.3); LYMPH % 12.9 % (9.0-44.0); LYMPHOCYTE # 1.2 TH/MM3 (1.0-4.8); MEAN CELL VOLUME 87.4 FL (80.0-100.0); MEAN CORPUSCULAR HEMOGLOBIN 29.2 PG (27.0-34.0); MEAN CORPUSCULAR HGB CONC 33.4 % (32.0-36.0); MEAN PLATELET VOLUME 7.5 FL (7.0-11.0); MONOCYTE # 0.8 TH/MM3 (0-0.9); NEUT % 78.7 % (16.0-70.0); PLATELET COUNT 425 TH/MM3 (150-450); RED BLOOD COUNT 4.21 MIL/MM3 (4.00-5.30); RED CELL DISTRIBUTION WIDTH 13.6 % (11.6-17.2); WHITE BLOOD COUNT 9.6 TH/MM3 (4.0-11.0)
[2017-06-24 11:37] LABS: BICARBONATE 26.7 MEQ/L (21.0-32.0); BLOOD UREA NITROGEN 9 MG/DL (7-18); CALCIUM 9.3 MG/DL (8.5-10.1); CHLORIDE 101 MEQ/L (98-107); CREATININE 0.72 MG/DL (0.50-1.00); GLOMERULAR FILTRATION RATE 105 ML/MIN (>89); GLUCOSE,RANDOM 95 MG/DL (74-106); SODIUM (NA) 137 MEQ/L (136-145)
[2017-06-24 13:00] VITALS: BP 120/46; PULSE 90; RESP 14; O2SAT 99
[2017-06-24 15:00] VITALS: BP 132/50; PULSE 90; RESP 18; O2SAT 97
[2017-07-07] MEDS ORDERED: OLAN10TA PO ×2 (09:39)
== END 2017-06-24 21:43 | disposition home or self-care (01) ==
LOC: NEPD 10:29 → NEPJ 21:43
DX: F25.0 Schizoaffective disorder, bipolar type (principal); Z79.899 Other long term (current) drug therapy
CPT/HCPCS: 80048; 80307; 84443; 84703; 85025; 99284

== ENCOUNTER 2017-06-25 14:19 | Inpatient (IN) | payer MEDICARE, MEDICAID ==
[~2017-06-25] VITALS: Ht 177.8 cm; Wt 136.4 kg
[~2017-06-25 14:19] MED LIST changes: -HYDR1CAP30 PO; -MEDICAL COMPRES1 MI3
[2017-06-25 14:32] VITALS: BP 142/74; PULSE 124; RESP 22; TEMP 99.7; O2SAT 99
[2017-06-25 14:39] VITALS: BP 142/74; PULSE 124; RESP 22; TEMP 99.7; O2SAT 99
--- NOTE | 2017-06-25 15:10 | PD ---
HPI Chief Complaint: Psychiatric Symptoms Time Seen by Provider: 14:59 Travel History International Travel<30 days: No Contact w/Intl Traveler<30days: No Traveled to known affect area: No History of Present Illness HPI 46-year-old female was Zamarripa acted and brought in from [facility], [place]. Patient was found to be loud, irrational, impulsive, angry, irritable, hostile and combative at the facility. Patient also was found to have some delusional thinking. Patient has history of schizoaffective affective disorder and bipolar disorder. Patient has been taking Abilify. Patient denies any alcohol or illicit drug abuse. Patient denies any headache. Patient denies any chest pain or shortness of breath. Patient denies abdominal pain. Patient denies any focal weakness or numbness of extremity. Patient has been seen in emergency room multiple times recently. Patient was seen yesterday in the emergency room and was medical cleared and was cleared by psychiatric team also. PFSH Past Medical History Anemia: Yes Blood Disorders: No Bipolar Disorder: Yes Anxiety: Yes Depression: Yes Diminished Hearing: No Endocrine: No Genitourinary: No Immune Disorder: No Musculoskeletal: No Neurologic: No Reproductive: No Respiratory: No Schizophrenia: Yes Menopausal: Yes : 2 Para: 2 Past Surgical History Arteriovenous Shunt: No Section: Yes Insulin Pump: No Neurologic Surgery: No Pacemaker: No Social History Alcohol Use: No Tobacco Use: No Substance Use: No Allergies-Medications (Allergen,Severity, Reaction): Coded Allergies: penicillin G (Verified Allergy, Mild, 06/25/17) Reported Meds & Prescriptions Reported Meds & Active Scripts Active [Benztropine] 1 MG Tab 1 Mg PO HS Reported Abilify Maintena ER Inj (Aripiprazole) 400 Mg Susp 400 Mg IM Q28D Review of Systems General / Constitutional: No: Fever Eyes: No: Visual changes HENT: No: Headaches Cardiovascular: No: Chest Pain or Discomfort Respiratory: No: Shortness of Breath Gastrointestinal: No: Abdominal Pain Genitourinary: No: Dysuria Musculoskeletal: No: Pain Skin: No Rash Neurologic: No: Weakness Psychiatric: No: Depression Endocrine: No: Polydipsia Hematologic/Lymphatic: No: Easy Bruising Physical Exam Narrative GENERAL: Well-nourished, well-developed patient. SKIN: Focused skin assessment warm/dry. HEAD: Normocephalic. EYES: No scleral icterus. No injection or drainage. NECK: Supple, trachea midline. No JVD or lymphadenopathy. CARDIOVASCULAR: Regular rate and rhythm without murmurs, gallops, or rubs. RESPIRATORY: Breath sounds equal bilaterally. No accessory muscle use. GASTROINTESTINAL: Abdomen soft, non-tender, nondistended. MUSCULOSKELETAL: No cyanosis, or edema. BACK: Nontender without obvious deformity. No CVA tenderness. Neurologic exam: Patient's awake and alert. Patient moves all extremities well. No obvious focal neurological deficit. Data Data Last Documented VS Vital Signs Date Time Temp Pulse Resp B/P (MAP) Pulse Ox O2 Delivery O2 Flow Rate FiO2 06/25/17 14:39 99.7 124 22 142/74 (96) 99 Room Air Orders Orders Psych Screen (06/25/17 15:05) MDM Medical Decision Making Medical Screen Exam Complete: Yes Emergency Medical Condition: Yes Medical Record Reviewed: Yes Differential Diagnosis Differential diagnosis including schizoaffective disorder, bipolar disorder. Narrative Course 46-year-old female with history of schizoaffective disorder, bipolar disorder, was Zamarripa acted and brought in for combative behavior and aggressive behavior. Patient's is comfortable, has no complaint now. Patient had the test done recently including yesterday and were normal. Patient is medically cleared for psychiatric evaluation and disposition. Eric Villalta MD Jun 25, 2017 15:10
[2017-06-25 17:47] VITALS: BP 154/79; PULSE 107; RESP 18; TEMP 98.7; O2SAT 100
[2017-06-25] MEDS ORDERED: LORazepam 2 MG/ML VIAL IM PRN (20:45)
[2017-06-25] MEDS ORDERED: ACETAMINOPHEN 325 MG TAB PO PRN (20:45)
[2017-06-25] MEDS ORDERED: diphenhydrAMINE HCL 50 MG/ML VIAL IM PRN (20:45)
[2017-06-25] MEDS ORDERED: ALUMINUM/MAGNESIUM/SIMETH 30 ML CUP PO PRN (20:45)
[2017-06-25] MEDS ORDERED: LORazepam 1 MG TAB PO PRN (20:45)
[2017-06-25] MEDS ORDERED: MAGNESIUM HYDROXIDE SUSP 30 ML CUP PO PRN (20:45)
[2017-06-25] MEDS ORDERED: diphenhydrAMINE HCL 50 MG CAP PO PRN (20:45)
--- NOTE | 2017-06-25 20:48 | HHI.HP ---
Provisional Diagnosis Admission Date [place]. Schizoaffective disorder, bipolar type. Certification of Person's Competence To Provide Express and Informed Consent I have personally examined Jeniffer Caban , a person being served at [facility] on, Jun 25, 2017 20:39. Express and informed consent means consent voluntarily given in writing, by a competent person, after sufficient explanation and disclosure of the subject matter involved to enable the person to make a knowing and willful decision without any element of force, fraud, deceit, duress, or other form of constraint or coercion. This person is 18 years of age or older, is not now known to be incompetent to consent to treatment with a guardian advocate, and does not have a health care surrogate or proxy currently making medical treatment decisions. I have found this person to be one of the following: [x] Competent to provide express and informed consent, as defined above, for voluntary admission to this facility and is competent to provide express and informed consent for treatment. He/she has the consistent capacity to make well reasoned, willful, and knowing decisions concerning his or her medical or mental health treatment. The person fully and consistently understands the purpose of the admission for examination/placement and is fully capable of personally exercising all rights assured [place] Incompetent to provide express and informed consent to voluntary admission, and this is incompetent to provide express and informed consent to treatment. The person must be transferred to involuntary status and a petition for a guardian advocate filed with the Circuit Court. [] Refusing to provide express and informed consent to voluntary admission but is competent to provide express and informed consent for treatment. The person must be discharged or transferred to involuntary status. Form shall be completed within 24 hours of a person's arrival at the receiving facility and filed in the clinical record of each person: 1. Admitted on a voluntary basis 2. Permitted to provide express and informed consent to his/her own treatment 3. Allowed to transfer from involuntary to voluntary status 4. Prior to permitting a person to consent to his or her own treatment after having been previously found incompetent to consent to treatment. History of Present Illness Capacity: Has Capacity HPI 46-year-old female who has been to this institution and treated at [facility] on multiple occasions. Apparently the patient was seen here at [facility] yesterday and both medically cleared and psychiatrically cleared for discharge. Unfortunately, when the patient presented herself to [facility] today, she was described as being loud, irrational, impulsive, angry and irritable, hostile and threatening. She is described as having paranoid delusional thinking and has been combative in the recent past. Her BIOPROCESSING MANUFACTURING TECHNICIAN feels that her medicines have not adequately assisted her and that she needs to be further stabilized. Upon interview, the patient describes the BIOPROCESSING MANUFACTURING TECHNICIAN's report as "all lies". The patient feels she is being persecuted by the staff at [facility]. She does admit that she is one day late to receive her Abilify Maintena injection. She denies the use of alcohol or drugs. Her toxicology screen is noted to be negative. She is hostile, irritable and threatening with this physician. She is felt to require inpatient psychiatric hospitalization. Review of Systems Psychiatric: COMPLAINS OF: Agitation, Delusions Except as stated in HPI: all other systems reviewed are Neg Past Psych History Psychological trauma history Unknown for psychological trauma but the patient has been treated multiple times at this institution and at [facility]. Violence risk - others (6 mos) Moderate to high. Violence risk - self (6 mos) Moderate to high. Substance Abuse History Drugs/Alcohol past 12 months Denied Past Family Social History Coded Allergies: penicillin G (Verified Allergy, Mild, 06/25/17) Active Scripts [Benztropine Mesylate] 1 MG TAB No Conflict Check, 1 MG PO HS for health, #30 TAB Prov:Arnold Morales MD 04/01/17 Reported Medications Aripiprazole ER Inj (Abilify Maintena ER Inj) 400 Mg Susp, 400 MG IM Q28D for Schizophrenia, #1 INJECTION 0 Refills 06/17/17 Discontinued Reported Medications Hydroxyzine Pamoate (Hydroxyzine Pamoate) 25 Mg Cap, 25 MG PO Q6H Y for ANXIETY , CAP 0 Refills 04/23/17 Discontinued Scripts Medical Compression Elastic Socks (Medical Compression Elastic Socks) 1 Mis Mis , EA .ROUTE DIRECTED, #1 Prov:Jelly Weiss 04/23/17 Current Medications Medications (Trade) Dose Ordered Sig/[place] Route Start Time Stop Time Status Last Admin (Ativan) 1 mg Q6H PRN PO 06/25/17 20:45 UNV (Ativan Inj) 1 mg Q6H PRN IM 06/25/17 20:45 UNV (Benadryl) 50 mg Q6H PRN PO 06/25/17 20:45 UNV (Benadryl Inj) 50 mg Q6H PRN IM 06/25/17 20:45 UNV (Tylenol) 650 mg Q4H PRN PO 06/25/17 20:45 UNV (Milk Of Magnesia Liq) 30 ml DAILY PRN PO 06/25/17 20:45 UNV (Mag-Al Plus Susp Liq) 30 ml Q6H PRN PO 06/25/17 20:45 UNV Family Psych History Positive family history of psychotic illness. Social History Patient unemployed. She does subsist with the use of Medicaid. She is not currently intoxicated with alcohol or drugs. She has minimal family support. Patient's Strengths (min. 2) Verbal and has access to healthcare. Physical Exam GENERAL: SKIN: Warm and dry. HEAD: Normocephalic. EYES: No scleral icterus. No injection or drainage. NECK: Supple, trachea midline. No JVD or lymphadenopathy. CARDIOVASCULAR: Regular rate and rhythm without murmurs, gallops, or rubs. RESPIRATORY: Breath sounds equal bilaterally. No accessory muscle use. GASTROINTESTINAL: Abdomen soft, non-tender, nondistended. MUSCULOSKELETAL: No cyanosis, or edema. BACK: Nontender without obvious deformity. No CVA tenderness. Vital Signs Vital Signs Date Time Temp Pulse Resp B/P (MAP) Pulse Ox O2 Delivery O2 Flow Rate FiO2 06/25/17 17:47 98.7 107 18 154/79 (104) 100 Room Air Mental Status Examination Appearance: Disheveled Consciousness: Alert Orientation: Person, Place, Date/Time Motor Activity: Normal gait Speech: Unremarkable Language: Adequate Fund of Knowledge: Adequate Attention and Concentration: Adequate Memory: Unremarkable Mood: Angry Affect: Irritable Thought Process & Associations: Circumstantial, Tangential Thought Content: Bizarre thinking, Ideas of reference, Delusional Hallucination Type: None Delusion Type: None, Paranoid Suicidal Ideation: No Suicidal Plan: No Suicidal Intention: No Homicidal Ideation: No Homicidal Plan: No Homicidal Intention: No Insight: Fair Judgment: Impulsive Assessment & Plan Problem List: (1) Schizoaffective disorder, bipolar type ICD Codes: F25.0 - Schizoaffective disorder, bipolar type Assessment & Plan Estimated LOS: days. 46-year-old female brought in under a Zamarripa act by her BIOPROCESSING MANUFACTURING TECHNICIAN's report, irrational, angry, irritable, impulsive, hostile and intermittently combative. Patient presents with paranoid delusions that she is being persecuted by healthcare professionals. She is irritable and threatening towards this physician and therefore being admitted for further stabilization. This physician has ordered a CBC and comprehensive metabolic panel to determine if the patient has any infectious process or metabolic process which is causing or contributing to her paranoia. Additionally, we are obtaining a thyroid- stimulating hormone level, vitamin B-12 level and vitamin D level to determine if deficiencies in these areas are causing or contributing to her psychosis. Additionally, she will receive a EKG to determine her cardiac conduction system. This is being done 2 avoid cardiac conduction issues possibly associated with her psychotropic medicines or changes to her psychotropic medicines. This physician spoke with the patient's nurse, Kimberlee, regarding her irrationality. This physician is obtaining a hospitalist consult to evaluate the patient for hypertension, etc. Finally, this physician is asking case management to get involved for further information gathering and to assist with disposition planning. This physician has ordered the patient's Abilify Maintena injection, 400 mg, to be given tomorrow. Horace Hannah MD Jun 25, 2017 20:48
[2017-06-25 22:00] VITALS: BP 167/91; PULSE 120; RESP 17; TEMP 98.2; O2SAT 100
[2017-06-25] MEDS ORDERED: ZIPRASIDONE MESYLATE 20 MG VIAL IM ONE (22:43)
[2017-06-25] MEDS ORDERED: LORazepam 2 MG/ML VIAL IM SCH (23:15)
[2017-06-25] MEDS ORDERED: diphenhydrAMINE HCL 50 MG/ML VIAL IM SCH (23:15)
[2017-06-25] MEDS ORDERED: ZIPRASIDONE MESYLATE 20 MG VIAL IM SCH (23:15)
[2017-06-26 06:04] VITALS: BP 167/75; PULSE 100; RESP 18; TEMP 98.2; O2SAT 100
--- NOTE | 2017-06-26 15:20 | PD.CONS ---
HPI Service [facility] Hospitalists Consult Requested By Dr. Barnes Reason for Consult Medical management Primary Care Physician No Primary Care Physician Diagnoses: (1) Schizoaffective disorder, bipolar type (2) Hypertension History of Present Illness 46 Y/O female with schizoaffective disorder admitted to the psychiatric unit for psychosis requiring stabilization. Hospitalist service consulted for medical management. BP Intermittently elevated. On evaluation today, patient reports "Naveed is her doctor" She is refusing to take any medications. She denies any chest pain or shortness of breath. Patient states she will know when her BP is too high. Review of Systems ROS Limitations: Clinical Condition, Uncooperative Unable to obtain accurate ROS as patient is not cooperating with interview. Past Family Social History Allergies: Coded Allergies: penicillin G (Verified Allergy, Mild, 06/25/17) Past Medical History Probable HTN but untreated. Past Surgical History None Reported Medications Reported Meds & Active Scripts Active [Benztropine] 1 MG Tab 1 Mg PO HS Reported Abilify Maintena ER Inj (Aripiprazole) 400 Mg Susp 400 Mg IM Q28D Family History Unknown per patient. Social History No tobacco, alcohol or illicit drugs. Physical Exam Vital Signs Vital Signs Date Time Temp Pulse Resp B/P (MAP) Pulse Ox O2 Delivery O2 Flow Rate FiO2 06/26/17 06:04 98.2 100 18 167/75 (105) 100 06/25/17 22:00 98.2 120 17 167/91 (116) 100 06/25/17 21:37 06/25/17 17:47 98.7 107 18 154/79 (104) 100 Room Air 06/25/17 17:39 Physical Exam GENERAL: Obese female in no apparent distress. SKIN: No rashes, ecchymoses or lesions. Cool and dry. NECK: Trachea midline. No JVD or lymphadenopathy. Supple, nontender, no meningeal signs. CARDIOVASCULAR: Regular rate and rhythm without murmurs, gallops, or rubs. RESPIRATORY: Clear to auscultation. Breath sounds equal bilaterally. No wheezes , rales, or rhonchi. GASTROINTESTINAL: Abdomen soft, non-tender, nondistended. MUSCULOSKELETAL: Extremities without clubbing, cyanosis, or edema. NEUROLOGICAL: Awake and alert. Normal speech. PSYCH: Seems to be responding to internal stimuli. Assessment and Plan Problem List: (1) Schizoaffective disorder ICD Code: F25.9 - Schizoaffective disorder, unspecified Status: Acute Plan: Management per psychiatry (2) Hypertension ICD Code: I10 - Essential (primary) hypertension Status: Chronic Plan: BP has been labile. Probably secondary to agitation from psychiatric disorder. I do suspect underlying untreated HTN. She is refusing medications but is ok with PRN - Add Clonidine PRN - Monitor BP. - Can consider Clonidine patch if BP persistently elevated. Assessment and Plan Will continue to follow Christine Amaya MD Jun 26, 2017 15:20
[2017-06-26] MEDS ORDERED: cloNIDine HCL 0.1 MG TAB PO PRN (15:30)
--- NOTE | 2017-06-26 15:55 | HHI.PYPN ---
Subjective Remarks Patient was seen and case discussed with nursing. Patient is oppositional, argumentative, and very religiously preoccupied. She is seen reading a Bible and saying that her doctors is Naveed. Refusing medications for psychiatric and blood pressure. Mental Status Examination Appearance: Disheveled Consciousness: Alert Orientation: Person, Place, Date/Time Motor Activity: Normal gait Speech: Unremarkable Language: Adequate Fund of Knowledge: Adequate Attention and Concentration: Adequate Memory: Unremarkable Mood: Angry Affect: Irritable Thought Process & Associations: Other (perseverative) Thought Content: Bizarre thinking (religiously preoccupied), Ideas of reference , Delusional Hallucination Type: None Delusion Type: None, Paranoid Suicidal Ideation: No Suicidal Plan: No Suicidal Intention: No Homicidal Ideation: No Homicidal Plan: No Homicidal Intention: No Insight: Fair Judgment: Impulsive Results Vitals/IOs Vital Signs Date Time Temp Pulse Resp B/P (MAP) Pulse Ox O2 Delivery O2 Flow Rate FiO2 06/26/17 06:04 98.2 100 18 167/75 (105) 100 06/25/17 17:47 Room Air Assessment & Plan Problem List: (1) Schizoaffective disorder, bipolar type ICD Codes: F25.0 - Schizoaffective disorder, bipolar type Assessment & Plan Patient to be petitioned to start medication once guardian advocate is found Justification for Cont. Inpt. Patient would decompensate in a less restrictive setting Bryson Barnes DO Jun 26, 2017 15:55
[2017-06-26 17:45] VITALS: BP 156/78; PULSE 93; RESP 18; TEMP 98.5; O2SAT 100
[2017-06-27 05:36] VITALS: BP 113/89; PULSE 94; RESP 16; TEMP 98.1; O2SAT 98
--- NOTE | 2017-06-27 12:10 | HHI.PR ---
Subjective Remarks Patient reports she has no problems. Has been refusing medications. Objective Vitals Vital Signs Date Time Temp Pulse Resp B/P (MAP) Pulse Ox O2 Delivery O2 Flow Rate FiO2 06/27/17 05:36 98.1 94 16 113/89 (97) 98 06/26/17 17:45 98.5 93 18 156/78 (104) 100 Objective Remarks GENERAL: No acute distress. CARDIOVASCULAR: Regular rate and rhythm. RESPIRATORY: No accessory muscle use. Clear to auscultation. Breath sounds equal bilaterally. GASTROINTESTINAL: Abdomen soft, non-tender, nondistended. MUSCULOSKELETAL: Extremities without clubbing, cyanosis, or edema. NEUROLOGICAL: Awake and alert. Normal speech. PSYCHIATRIC: Responding to internal stimuli. A/P Problem List: (1) Schizoaffective disorder ICD Code: F25.9 - Schizoaffective disorder, unspecified Status: Acute Plan: Management per psychiatry Patient is refusing meds. (2) Hypertension ICD Code: I10 - Essential (primary) hypertension Status: Chronic Plan: BP has been labile. Probably secondary to agitation from psychiatric disorder. I do suspect underlying untreated HTN. She is refusing medications but is ok with PRN - Add Clonidine PRN - Monitor BP. - Can consider Clonidine patch if BP persistently elevated. Christine Amaya MD Jun 27, 2017 12:09
--- NOTE | 2017-06-27 15:02 | HHI.PYPN ---
Subjective Remarks Patient was seen and case discussed with nursing. Per nursing patient is not eating. Today patient is markedly more interactive during the interview. She is able to hold a conversation. Says she is sleeping well. Denies suicidal or homicidal ideation intent or plan. Patient was speaking on the phone. When asked what was she said "it is private." She was asked to consider giving us a surrogate so she can start taking medications. Patient remains floridly psychotic and religiously preoccupied Mental Status Examination Appearance: Disheveled Consciousness: Alert Orientation: Person, Place, Date/Time Motor Activity: Normal gait Speech: Unremarkable Language: Adequate Fund of Knowledge: Adequate Attention and Concentration: Adequate Memory: Unremarkable Mood: Angry Affect: Irritable Thought Process & Associations: Other (perseverative) Thought Content: Bizarre thinking (religiously preoccupied), Ideas of reference , Delusional Hallucination Type: Auditory (likely responding to presybeterian messages) Delusion Type: None, Paranoid Suicidal Ideation: No Suicidal Plan: No Suicidal Intention: No Homicidal Ideation: No Homicidal Plan: No Homicidal Intention: No Insight: Fair Judgment: Impulsive Results Vitals/IOs Vital Signs Date Time Temp Pulse Resp B/P (MAP) Pulse Ox O2 Delivery O2 Flow Rate FiO2 06/27/17 05:36 98.1 94 16 113/89 (97) 98 06/25/17 17:47 Room Air Assessment & Plan Problem List: (1) Schizoaffective disorder, bipolar type ICD Codes: F25.0 - Schizoaffective disorder, bipolar type Assessment & Plan Continue current treatment plan Justification for Cont. Inpt. Patient would decompensate in a less restrictive setting Bryson Barnes DO Jun 27, 2017 15:02
[2017-06-27 16:51] VITALS: BP 148/75; PULSE 91; RESP 18; TEMP 98.1; O2SAT 98
--- NOTE | 2017-06-27 20:54 | EKG ---
Date Performed: 06/26/2017 Time Performed: 13:28:03 PTAGE: 46 years EKG: SINUS TACHYCARDIA NONSPECIFIC T-WAVE ABNORMALITY ABNORMAL RHYTHM ECG PREVIOUS TRACING : 03/20/2017 15.30 DOCTOR: Bacilio Haney Interpretating Date/Time 06/27/2017 20:48:04
[2017-06-28 06:01] VITALS: BP 123/65; PULSE 84; RESP 17; TEMP 98.1; O2SAT 100
[2017-06-28 09:02] LABS: AUTOMATED NEUTROPHIL # 4.2 TH/MM3 (1.8-7.7); BASOPHIL % 0.5 % (0.0-2.0); EOSINOPHIL # 0.1 TH/MM3 (0-0.4); EOSINOPHIL % 1.1 % (0.0-4.0); HEMATOCRIT 36.4 % (35.0-46.0); LYMPHOCYTE # 1.9 TH/MM3 (1.0-4.8); MEAN CELL VOLUME 87.6 FL (80.0-100.0); MEAN CORPUSCULAR HEMOGLOBIN 28.9 PG (27.0-34.0); MEAN PLATELET VOLUME 7.6 FL (7.0-11.0); MONO % 13.2 % (0.0-8.0); MONOCYTE # 0.9 TH/MM3 (0-0.9); NEUT % 59.2 % (16.0-70.0); PLATELET COUNT 361 TH/MM3 (150-450); RED BLOOD COUNT 4.15 MIL/MM3 (4.00-5.30); RED CELL DISTRIBUTION WIDTH 13.5 % (11.6-17.2); WHITE BLOOD COUNT 7.1 TH/MM3 (4.0-11.0)
[2017-06-28 09:41] LABS: ALBUMIN 3.5 GM/DL (3.4-5.0); AST (GOT) 26 U/L (15-37); BICARBONATE 23.4 MEQ/L (21.0-32.0); BLOOD UREA NITROGEN 14 MG/DL (7-18); CALCIUM 8.8 MG/DL (8.5-10.1); CHLORIDE 104 MEQ/L (98-107); CREATININE 0.61 MG/DL (0.50-1.00); GLOMERULAR FILTRATION RATE 127 ML/MIN (>89); GLUCOSE,RANDOM 66 MG/DL (74-106); SODIUM (NA) 139 MEQ/L (136-145)
[2017-06-28 09:42] LABS: CHOLESTEROL 154 MG/DL (120-200); TRIGLYCERIDES 58 MG/DL (42-150)
[2017-06-28 10:09] LABS: ALKALINE PHOSPHATASE 66 U/L (45-117); ALT (GPT) 30 U/L (10-53); CHOLESTEROL/ HDL RATIO 2.69 RATIO; HDL CHOLESTEROL 57.2 MG/DL (40.0-60.0); LDL CHOLESTEROL 85 MG/DL (0-99); TOTAL BILIRUBIN ADULT 1.1 MG/DL (0.2-1.0)
[2017-06-28] MEDS ORDERED: ARIPIPRAZOLE 400 MG IM SCH (13:00)
[2017-06-28] MEDS: ARIPiprazole 10 MG TAB PO SCH ×2 (13:00→21:00)
--- NOTE | 2017-06-28 14:16 | HHI.PR ---
Subjective Remarks DW RN. Patient is refusing medications. Did not eat yesterday. Religiously preoccupied. Objective Vitals Vital Signs Date Time Temp Pulse Resp B/P (MAP) Pulse Ox O2 Delivery O2 Flow Rate FiO2 06/28/17 06:01 98.1 84 17 123/65 (84) 100 06/27/17 16:51 98.1 91 18 148/75 (99) 98 Result Diagram: 06/28/17 0800 06/28/17 0800 Objective Remarks GENERAL: No acute distress. CARDIOVASCULAR: Regular rate and rhythm. RESPIRATORY: No accessory muscle use. Clear to auscultation. Breath sounds equal bilaterally. NEUROLOGICAL: Awake and alert. Normal speech. PSYCHIATRIC: Responding to internal stimuli. A/P Problem List: (1) Schizoaffective disorder ICD Code: F25.9 - Schizoaffective disorder, unspecified Status: Acute Plan: Management per psychiatry Patient has been refusing medications. (2) Hypertension ICD Code: I10 - Essential (primary) hypertension Status: Chronic Plan: BP has been labile. Probably secondary to intermittent agitation from psychiatric disorder. I do suspect underlying untreated HTN. - Recommends low dose Amlodipine 5 mg daily - Clonidine PRN - Monitor BP. Christine Amaya MD Jun 28, 2017 14:16
--- NOTE | 2017-06-28 14:41 | HHI.PYPN ---
Subjective Remarks Patient is a 46-year-old woman, domiciled recently in a [facility] residence/skilled nursing, single unemployed supported by [facility], currently evaluation of her conditional release, currently has a warrant for her arrest at this time, past psychiatric history of schizophrenia versus schizoaffective disorder bipolar type, multiple psychiatric hospitalizations (last seen in February 2017 at [place]), previous psychiatric state hospitalization, history of noncompliance with treatment, no prior suicide attempts or history of substance use, with outpatient mental health services at [facility], who was admitted on 06/25/17 for psychosis and pentecostalism delusions after having been put under Zamarripa act at [facility]. As per ED notes patient was noted to have been loud irrational, impulsive, angry, hostile and combative at the facility. 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 Patient was founds on the phone and able to engage in interview today with sign writer letterer or painter and nurse. Patient noted to be irritable, guarded, and superficially cooperative with interview. Patient states that she was at [facility] and they have brought her here to the hospital but did not elaborate patient states that she is always been involved in her hinduism but denies having been loud or disruptive. Patient stated her mood as being good, denies any auditory or visual hallucinations or paranoid ideations. Patient was not able or unwilling to continue to provide more history due to her current irritability, oppositional stance toward sign writer letterer or painter in at this time was refusing treatment. Java Core Developer spoke with [facility] credit representative Storm Gonzalez ([phone]) - stated the patient was brought to the hospital after patient was noted to be at the clinic saying loudly, "in the Bible which at that time other patients had to be cleared from the room that over disruptiveness. He also states that it was reported to have the patient was not sleeping was hinduism preoccupied and Everyone up at night at her residence. He also mentions that this time she is unable to return back to her residence and states that they believe she requires higher level of supervision, possibly returning back to state hospitalization. Mr. Blackwood also states that patient has a current warrant her arrest and was in violation of conditional release and was reported to the claims clerk. Review of Systems Except as stated in HPI: all other systems reviewed are Neg Mental Status Examination Appearance: Disheveled Consciousness: Alert Orientation: Person, Place, Date/Time Motor Activity: Normal gait Speech: Unremarkable Language: Adequate Fund of Knowledge: Adequate Attention and Concentration: Adequate Memory: Unremarkable Mood: Angry, Irritable Affect: Irritable Thought Process & Associations: Other (oppositional) Thought Content: Bizarre thinking (religiously preoccupied), Ideas of reference , Delusional Hallucination Type: Auditory (likely responding to pentecostalism messages) Delusion Type: None, Paranoid, Other (religiously preoccupied) Suicidal Ideation: No Suicidal Plan: No Suicidal Intention: No Homicidal Ideation: No Homicidal Plan: No Homicidal Intention: No Insight: Poor Judgment: Poor Results Labs Labs reviewed Test 06/28/17 08:00 White Blood Count 7.1 TH/MM3 Red Blood Count 4.15 MIL/MM3 Hemoglobin 12.0 GM/DL Hematocrit 36.4 % Mean Corpuscular Volume 87.6 FL Mean Corpuscular Hemoglobin 28.9 PG Mean Corpuscular Hemoglobin Concent 33.0 % Red Cell Distribution Width 13.5 % Platelet Count 361 TH/MM3 Mean Platelet Volume 7.6 FL Neutrophils (%) (Auto) 59.2 % Lymphocytes (%) (Auto) 26.0 % Monocytes (%) (Auto) 13.2 % Eosinophils (%) (Auto) 1.1 % Basophils (%) (Auto) 0.5 % Neutrophils # (Auto) 4.2 TH/MM3 Lymphocytes # (Auto) 1.9 TH/MM3 Monocytes # (Auto) 0.9 TH/MM3 Eosinophils # (Auto) 0.1 TH/MM3 Basophils # (Auto) 0.0 TH/MM3 CBC Comment DIFF FINAL Differential Comment Blood Urea Nitrogen 14 MG/DL Creatinine 0.61 MG/DL Random Glucose 66 MG/DL Total Protein 8.0 GM/DL Albumin 3.5 GM/DL Calcium Level 8.8 MG/DL Alkaline Phosphatase 66 U/L Aspartate Amino Transf (AST/SGOT) 26 U/L Alanine Aminotransferase (ALT/SGPT) 30 U/L Total Bilirubin 1.1 MG/DL Sodium Level 139 MEQ/L Potassium Level 3.1 MEQ/L Chloride Level 104 MEQ/L Carbon Dioxide Level 23.4 MEQ/L Anion Gap 12 MEQ/L Estimat Glomerular Filtration Rate 127 ML/MIN Triglycerides Level 58 MG/DL Cholesterol Level 154 MG/DL LDL Cholesterol 85 MG/DL HDL Cholesterol 57.2 MG/DL Cholesterol/HDL Ratio 2.69 RATIO Vitamin B12 Level 1681 PG/ML 25-Hydroxy Vitamin D Total 7.4 ng/ML Thyroid Stimulating Hormone 3rd Gen 1.490 uIU/ML Vitals/IOs Vital Signs Date Time Temp Pulse Resp B/P (MAP) Pulse Ox O2 Delivery O2 Flow Rate FiO2 06/28/17 06:01 98.1 84 17 123/65 (84) 100 06/25/17 17:47 Room Air Assessment & Plan Problem List: (1) Schizoaffective disorder, bipolar type ICD Codes: F25.0 - Schizoaffective disorder, bipolar type Assessment & Plan Patient at this time continues to be noted to be irritable, superficially cooperative, religiously preoccupied, with poor insight and judgment. Patient continues to refuse medications. We'll have to request a [facility] healthcare surrogate/guardian advocate this patient at this time refusing treatment. Will order Abilify maintain of 400 mg IM as patient is dose recently and will add Abilify 10 mg by mouth twice a day, Cogentin 1 mg at bedtime. Discharge planning in progress Justification for Cont. Inpt. At risk for further decompensation if at lower level of care Discharge Planning Patient may be discharged back to state hospitalization or an alternative assisted living facility if accepted. It is possible the patient may have to face the legal system due to current working for her arrest upon discharge. Arnold Morales MD Jun 28, 2017 14:41
--- NOTE | 2017-06-28 14:41 | HHI.PYPN ---
Subjective Remarks Patient is a 46-year-old woman, domiciled recently in a [employer] residence/half-way, single unemployed supported by [facility], currently evaluation of her conditional release, currently has a warrant for her arrest at this time, past psychiatric history of schizophrenia versus schizoaffective disorder bipolar type, multiple psychiatric hospitalizations (last seen in February 2017 at [place]), previous psychiatric state hospitalization, history of noncompliance with treatment, no prior suicide attempts or history of substance use, with outpatient mental health services at [facility], who was admitted on 06/25/17 for psychosis and gnosticist delusions after having been put under Zamarripa act at [facility]. As per ED notes patient was noted to have been loud irrational, impulsive, angry, hostile and combative at the facility. 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 Patient was founds on the phone and able to engage in interview today with signwriter and nurse. Patient noted to be irritable, guarded, and superficially cooperative with interview. Patient states that she was at [facility] and they have brought her here to the hospital but did not elaborate patient states that she is always been involved in her pentecostalism but denies having been loud or disruptive. Patient stated her mood as being good, denies any auditory or visual hallucinations or paranoid ideations. Patient was not able or unwilling to continue to provide more history due to her current irritability, oppositional stance toward signwriter in at this time was refusing treatment. Instructional Leader spoke with [facility] labor union business representative Storm Gonzalez ([phone]) - stated the patient was brought to the hospital after patient was noted to be at the clinic saying loudly, "in the Bible which at that time other patients had to be cleared from the room that over disruptiveness. He also states that it was reported to have the patient was not sleeping was pentecostalism preoccupied and Everyone up at night at her residence. He also mentions that this time she is unable to return back to her residence and states that they believe she requires higher level of supervision, possibly returning back to state hospitalization. Mr. Blackwood also states that patient has a current warrant her arrest and was in violation of conditional release and was reported to the web pressman. Review of Systems Except as stated in HPI: all other systems reviewed are Neg Mental Status Examination Appearance: Disheveled Consciousness: Alert Orientation: Person, Place, Date/Time Motor Activity: Normal gait Speech: Unremarkable Language: Adequate Fund of Knowledge: Adequate Attention and Concentration: Adequate Memory: Unremarkable Mood: Angry, Irritable Affect: Irritable Thought Process & Associations: Other (oppositional) Thought Content: Bizarre thinking (religiously preoccupied), Ideas of reference , Delusional Hallucination Type: Auditory (likely responding to gnosticist messages) Delusion Type: None, Paranoid, Other (religiously preoccupied) Suicidal Ideation: No Suicidal Plan: No Suicidal Intention: No Homicidal Ideation: No Homicidal Plan: No Homicidal Intention: No Insight: Poor Judgment: Poor Results Labs Labs reviewed Test 06/28/17 08:00 White Blood Count 7.1 TH/MM3 Red Blood Count 4.15 MIL/MM3 Hemoglobin 12.0 GM/DL Hematocrit 36.4 % Mean Corpuscular Volume 87.6 FL Mean Corpuscular Hemoglobin 28.9 PG Mean Corpuscular Hemoglobin Concent 33.0 % Red Cell Distribution Width 13.5 % Platelet Count 361 TH/MM3 Mean Platelet Volume 7.6 FL Neutrophils (%) (Auto) 59.2 % Lymphocytes (%) (Auto) 26.0 % Monocytes (%) (Auto) 13.2 % Eosinophils (%) (Auto) 1.1 % Basophils (%) (Auto) 0.5 % Neutrophils # (Auto) 4.2 TH/MM3 Lymphocytes # (Auto) 1.9 TH/MM3 Monocytes # (Auto) 0.9 TH/MM3 Eosinophils # (Auto) 0.1 TH/MM3 Basophils # (Auto) 0.0 TH/MM3 CBC Comment DIFF FINAL Differential Comment Blood Urea Nitrogen 14 MG/DL Creatinine 0.61 MG/DL Random Glucose 66 MG/DL Total Protein 8.0 GM/DL Albumin 3.5 GM/DL Calcium Level 8.8 MG/DL Alkaline Phosphatase 66 U/L Aspartate Amino Transf (AST/SGOT) 26 U/L Alanine Aminotransferase (ALT/SGPT) 30 U/L Total Bilirubin 1.1 MG/DL Sodium Level 139 MEQ/L Potassium Level 3.1 MEQ/L Chloride Level 104 MEQ/L Carbon Dioxide Level 23.4 MEQ/L Anion Gap 12 MEQ/L Estimat Glomerular Filtration Rate 127 ML/MIN Triglycerides Level 58 MG/DL Cholesterol Level 154 MG/DL LDL Cholesterol 85 MG/DL HDL Cholesterol 57.2 MG/DL Cholesterol/HDL Ratio 2.69 RATIO Vitamin B12 Level 1681 PG/ML 25-Hydroxy Vitamin D Total 7.4 ng/ML Thyroid Stimulating Hormone 3rd Gen 1.490 uIU/ML Vitals/IOs Vital Signs Date Time Temp Pulse Resp B/P (MAP) Pulse Ox O2 Delivery O2 Flow Rate FiO2 06/28/17 06:01 98.1 84 17 123/65 (84) 100 06/25/17 17:47 Room Air Assessment & Plan Problem List: (1) Schizoaffective disorder, bipolar type ICD Codes: F25.0 - Schizoaffective disorder, bipolar type Assessment & Plan Patient at this time continues to be noted to be irritable, superficially cooperative, religiously preoccupied, with poor insight and judgment. Patient continues to refuse medications. We'll have to request a [facility] healthcare surrogate/guardian advocate this patient at this time refusing treatment. Will order Abilify maintain of 400 mg IM as patient is dose recently and will add Abilify 10 mg by mouth twice a day, Cogentin 1 mg at bedtime. Discharge planning in progress Justification for Cont. Inpt. At risk for further decompensation if at lower level of care Discharge Planning Patient may be discharged back to state hospitalization or an alternative assisted living facility if accepted. It is possible the patient may have to face the legal system due to current working for her arrest upon discharge. Arnold Morales MD Jun 28, 2017 14:41
--- NOTE | 2017-06-28 14:41 | HHI.PYPN ---
Subjective Remarks Patient is a 46-year-old woman, domiciled recently in [place], single unemployed supported by [facility], currently evaluation of her conditional release, currently has a warrant for her arrest at this time, past psychiatric history of schizophrenia versus schizoaffective disorder bipolar type, multiple psychiatric hospitalizations (last seen in February 2017 at [place]), previous psychiatric state hospitalization, history of noncompliance with treatment, no prior suicide attempts or history of substance use, with outpatient mental health services at [facility], who was admitted on 06/25/17 for psychosis and tenriism delusions after having been put under Zamarripa act at [facility]. As per ED notes patient was noted to have been loud irrational, impulsive, angry, hostile and combative at the facility. 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 Patient was founds on the phone and able to engage in interview today with blog writer and nurse. Patient noted to be irritable, guarded, and superficially cooperative with interview. Patient states that she was at [facility] and they have brought her here to the hospital but did not elaborate patient states that she is always been involved in her tenriism but denies having been loud or disruptive. Patient stated her mood as being good, denies any auditory or visual hallucinations or paranoid ideations. Patient was not able or unwilling to continue to provide more history due to her current irritability, oppositional stance toward blog writer in at this time was refusing treatment. Reference Assistant spoke with [facility] sales and merchandising representative Storm Gonzalez ([phone]) - stated the patient was brought to the hospital after patient was noted to be at the clinic saying loudly, "in the Bible which at that time other patients had to be cleared from the room that over disruptiveness. He also states that it was reported to have the patient was not sleeping was tenriism preoccupied and Everyone up at night at her residence. He also mentions that this time she is unable to return back to her residence and states that they believe she requires higher level of supervision, possibly returning back to state hospitalization. Mr. Blackwood also states that patient has a current warrant her arrest and was in violation of conditional release and was reported to the manager of financial reporting. Review of Systems Except as stated in HPI: all other systems reviewed are Neg Mental Status Examination Appearance: Disheveled Consciousness: Alert Orientation: Person, Place, Date/Time Motor Activity: Normal gait Speech: Unremarkable Language: Adequate Fund of Knowledge: Adequate Attention and Concentration: Adequate Memory: Unremarkable Mood: Angry, Irritable Affect: Irritable Thought Process & Associations: Other (oppositional) Thought Content: Bizarre thinking (religiously preoccupied), Ideas of reference , Delusional Hallucination Type: Auditory (likely responding to tenriism messages) Delusion Type: None, Paranoid, Other (religiously preoccupied) Suicidal Ideation: No Suicidal Plan: No Suicidal Intention: No Homicidal Ideation: No Homicidal Plan: No Homicidal Intention: No Insight: Poor Judgment: Poor Results Labs Labs reviewed Test 06/28/17 08:00 White Blood Count 7.1 TH/MM3 Red Blood Count 4.15 MIL/MM3 Hemoglobin 12.0 GM/DL Hematocrit 36.4 % Mean Corpuscular Volume 87.6 FL Mean Corpuscular Hemoglobin 28.9 PG Mean Corpuscular Hemoglobin Concent 33.0 % Red Cell Distribution Width 13.5 % Platelet Count 361 TH/MM3 Mean Platelet Volume 7.6 FL Neutrophils (%) (Auto) 59.2 % Lymphocytes (%) (Auto) 26.0 % Monocytes (%) (Auto) 13.2 % Eosinophils (%) (Auto) 1.1 % Basophils (%) (Auto) 0.5 % Neutrophils # (Auto) 4.2 TH/MM3 Lymphocytes # (Auto) 1.9 TH/MM3 Monocytes # (Auto) 0.9 TH/MM3 Eosinophils # (Auto) 0.1 TH/MM3 Basophils # (Auto) 0.0 TH/MM3 CBC Comment DIFF FINAL Differential Comment Blood Urea Nitrogen 14 MG/DL Creatinine 0.61 MG/DL Random Glucose 66 MG/DL Total Protein 8.0 GM/DL Albumin 3.5 GM/DL Calcium Level 8.8 MG/DL Alkaline Phosphatase 66 U/L Aspartate Amino Transf (AST/SGOT) 26 U/L Alanine Aminotransferase (ALT/SGPT) 30 U/L Total Bilirubin 1.1 MG/DL Sodium Level 139 MEQ/L Potassium Level 3.1 MEQ/L Chloride Level 104 MEQ/L Carbon Dioxide Level 23.4 MEQ/L Anion Gap 12 MEQ/L Estimat Glomerular Filtration Rate 127 ML/MIN Triglycerides Level 58 MG/DL Cholesterol Level 154 MG/DL LDL Cholesterol 85 MG/DL HDL Cholesterol 57.2 MG/DL Cholesterol/HDL Ratio 2.69 RATIO Vitamin B12 Level 1681 PG/ML 25-Hydroxy Vitamin D Total 7.4 ng/ML Thyroid Stimulating Hormone 3rd Gen 1.490 uIU/ML Vitals/IOs Vital Signs Date Time Temp Pulse Resp B/P (MAP) Pulse Ox O2 Delivery O2 Flow Rate FiO2 06/28/17 06:01 98.1 84 17 123/65 (84) 100 06/25/17 17:47 Room Air Assessment & Plan Problem List: (1) Schizoaffective disorder, bipolar type ICD Codes: F25.0 - Schizoaffective disorder, bipolar type Assessment & Plan Patient at this time continues to be noted to be irritable, superficially cooperative, religiously preoccupied, with poor insight and judgment. Patient continues to refuse medications. We'll have to request a [facility] healthcare surrogate/guardian advocate this patient at this time refusing treatment. Will order Abilify maintain of 400 mg IM as patient is dose recently and will add Abilify 10 mg by mouth twice a day, Cogentin 1 mg at bedtime. Discharge planning in progress Justification for Cont. Inpt. At risk for further decompensation if at lower level of care Discharge Planning Patient may be discharged back to state hospitalization or an alternative assisted living facility if accepted. It is possible the patient may have to face the legal system due to current working for her arrest upon discharge. Arnold Morales MD Jun 28, 2017 14:41
--- NOTE | 2017-06-28 16:20 | PD.TTN ---
Patient Problems 1. Discharge planning 2. Medication compliance 3. Knowledge deficit 4. Lack of coping skills Progress Toward Goals Provider Present: Dr. Colette Morales Provider Input: Dr. Haile's treatment team met to discuss patient's treatment plan, discharge and medication. Per Dr. Morales patient is noted to be irritable, guarded, and superficially cooperative and is refusing medication Nurse(s) Input: Patient's nurse Areli reports patient being psychotic, occupied, seclusive, delusional, refusing medication. Psychiatric Counselors Present: AWILDA BallardRickie Psych Therapist Input: Patient presented cooperative but superficial, guarded, religiously preoccupied, affect blunted. Patient denies suicidal and homicidal ideation. Patient denies internally stimulation, however, patient has been seen talking to herself. Patient is exit seeking and refusing her medication Group Spec/RT/OT/VILLAGOMEZ Present: DAHLIA Mcgrath Group Spec/RT/OT/VILLAGOMEZ Input: Atif VILLAGOMEZ reports patient is new and has not had time to speak to patient. Documentation Teaching Recipient: Patient Jelly AlejoRickie Jun 28, 2017 16:20
--- NOTE | 2017-06-28 16:20 | PD.TTN ---
Patient Problems 1. Discharge planning 2. Medication compliance 3. Knowledge deficit 4. Lack of coping skills Progress Toward Goals Provider Present: Dr. Colette Morales Provider Input: Dr. Haile's treatment team met to discuss patient's treatment plan, discharge and medication. Per Dr. Morales patient is noted to be irritable, guarded, and superficially cooperative and is refusing medication Nurse(s) Input: Patient's nurse Areli reports patient being psychotic, occupied, seclusive, delusional, refusing medication. Psychiatric Counselors Present: AWILDA BallardRickie Psych Therapist Input: Patient presented cooperative but superficial, guarded, religiously preoccupied, affect blunted. Patient denies suicidal and homicidal ideation. Patient denies internally stimulation, however, patient has been seen talking to herself. Patient is exit seeking and refusing her medication Group Spec/RT/OT/VILLAOGMEZ Present: DAHLIA Mcgrath Group Spec/RT/OT/VILLAGOMEZ Input: Atif VILLAGOMEZ reports patient is new and has not had time to speak to patient. Documentation Teaching Recipient: Patient Jelly AlejoRickie Jun 28, 2017 16:20
[2017-06-28 18:07] VITALS: BP 154/65; PULSE 92; RESP 18; TEMP 98.7; O2SAT 99
[2017-06-28] MEDS ORDERED: ARIPIPRAZOLE IM SCH (20:00)
[2017-06-28] MEDS: BENZTROPINE MESYLATE 1 MG TAB PO SCH (21:00)
[2017-06-29 06:11] VITALS: BP 143/70; PULSE 81; RESP 18; TEMP 98.4; O2SAT 99
[2017-06-29] MEDS: amLODIPine BESYLATE 5 MG TAB PO SCH (09:00)
[2017-06-29] MEDS: ARIPiprazole 10 MG TAB PO SCH ×2 (09:00→20:54)
[2017-06-29] MEDS ORDERED: DIVALPROEX DR 500 MG TABEC PO SCH (12:00)
--- NOTE | 2017-06-29 13:53 | HHI.PYPN ---
Subjective Remarks Patient seen for follow-up, chart reviewed. Patient found walking on the unit was cooperative in interview today; noted to be irritable. Patient states that she does not the medications that her mood as "pretty good". Patient continues to report that her behavior that cause her hospitalization was "it's all a lie" . Patient states that she is fine and she took her medications and does not need to be here and ready for discharge. Patient reports that all the medications she had taken the past admitted her legs swell which is why she is refusing to take any more medications by mouth. Review of Systems Except as stated in HPI: all other systems reviewed are Neg Mental Status Examination Appearance: Disheveled Consciousness: Alert Orientation: Person, Place, Date/Time Motor Activity: Normal gait Speech: Unremarkable Language: Adequate Fund of Knowledge: Adequate Attention and Concentration: Adequate Memory: Unremarkable Mood: Angry, Irritable Affect: Irritable Thought Process & Associations: Other (oppositional) Thought Content: Bizarre thinking (religiously preoccupied), Ideas of reference , Delusional (religiously preoccupied) Hallucination Type: Auditory (denies at this time) Delusion Type: None, Paranoid, Other (religiously preoccupied) Suicidal Ideation: No Suicidal Plan: No Suicidal Intention: No Homicidal Ideation: No Homicidal Plan: No Homicidal Intention: No Insight: Poor Judgment: Poor Results Vitals/IOs Vital Signs Date Time Temp Pulse Resp B/P (MAP) Pulse Ox O2 Delivery O2 Flow Rate FiO2 06/29/17 06:11 98.4 81 18 143/70 (94) 99 06/25/17 17:47 Room Air Assessment & Plan Problem List: (1) Schizoaffective disorder, bipolar type ICD Codes: F25.0 - Schizoaffective disorder, bipolar type Assessment & Plan Patient continues to be noted to be irritable, religiously preoccupied although not noted to be aggressive toward others or staff since admission. After extensive discussion with patient about having the addition of mood stabilizers of Depakote was needed patient continues to refuse. Will order Depakote 500 mg by mouth twice a day for mood stabilization. Patient aware that patient will be presented to court on . Discharge planning in progress Justification for Cont. Inpt. At risk for further decompensation if at lower level of care Discharge Planning Unclear patient to return back to her residence once psychiatrically stable. Arnold Morales MD Jun 29, 2017 13:53
--- NOTE | 2017-06-29 13:58 | HHI.PR ---
Addendum to Inpatient Note Addendum Reason: Additional Documentation Additional Information Chart reviewed. Nothing else to offer from a medical side. Amlodipine recommended if/when she agrees to take it for HTN. Signing off. Please call or reconsult as needed. Christine Amaya MD Jun 29, 2017 13:58
[2017-06-29 16:00] LABS: HEMOGLOBIN A1C 5.4 % (4.3-6.0)
[2017-06-29 18:32] VITALS: BP 126/80; PULSE 107; RESP 17; TEMP 98.6; O2SAT 99
[2017-06-29] MEDS: BENZTROPINE MESYLATE 1 MG TAB PO SCH (20:55)
[2017-06-30 06:45] VITALS: BP 122/62; PULSE 88; RESP 18; TEMP 97.5; O2SAT 98
[2017-06-30] MEDS: amLODIPine BESYLATE 5 MG TAB PO SCH (09:00)
--- NOTE | 2017-06-30 15:25 | PD.TTN ---
Patient Problems 1. Discharge planning 2. Medication compliance 3. Knowledge deficit 4. Lack of coping skills Progress Toward Goals Provider Present: Dr. Colette Morales Provider Input: Dr. Haile's treatment team met to discuss patient's treatment plan, discharge and medication. Per Dr. Morales patient is noted to be irritable, guarded, and superficially cooperative and is refusing medication 06/30/17 Patient continues to refuse medications, seclusive, iritable, preoccupied Nurse(s) Input: Patient's nurse Areli reports patient being psychotic, occupied, seclusive, delusional, refusing medication. 06/30/17 Patient's nurse Pao reports patient is agitated, is non compliant with medication, religiously preoccupied, no insight Psychiatric Counselors Present: AWILDA BallardRickie Psych Therapist Input: Patient presented cooperative but superficial, guarded, religiously preoccupied, affect blunted. Patient denies suicidal and homicidal ideation. Patient denies internally stimulation, however, patient has been seen talking to herself. Patient is exit seeking and refusing her medication 06/30/17 Patient presents intrusive, agitated, restless, seclusive, hostle, affect blunted. Patient's speech is clear, disorganized, with pressure. Patient made good eye contact. Patient is non compliant with medication. Patient is denying suicidal and homicidal ideation. Patient does present with internal stimulation along with delusional content. Group Spec/RT/OT/VILLAGOMEZ Present: DAHLIA Helms, DAHLIA Mcgrath Group Spec/RT/OT/VILLAGOMEZ Input: Atif VILLAGOMEZ reports patient is new and has not had time to speak to patient. 06/30/17 Chasity VILLAGOMEZ reports patient does not attend groups, is seclusive to room Documentation Teaching Recipient: Patient [facility]elly [facility]jo [facility] Jun 30, 2017 15:25
--- NOTE | 2017-06-30 16:03 | HHI.PYPN ---
Subjective Remarks Patient is seen for follow-up, chart review. Discussion with nursing staff reported the patient was continuing to refuse medications, upset that she was going to go to mental health Court, with poor insight and religiously preoccupied on the unit. Patient was found walking hospital units was noted to be cooperative interview although continues to be noted to be irritable. Patient states that she is feeling "fine" continues to deny having been inappropriately praising and singing in the clinic prior to her admission. Patient continues to report that these have all been lies feels that she is ready for discharge. Patient states that she is not manic and that she only requires the Abilify injection and nothing more. Patient continues to refuse all other medications despite extensive discussion of for recommendations to help stabilize her mood. Patient aware that she will present to [facility] tomorrow for petition for involuntary admission. Review of Systems Except as stated in HPI: all other systems reviewed are Neg Mental Status Examination Appearance: Disheveled Consciousness: Alert Orientation: Person, Place, Date/Time Motor Activity: Normal gait Speech: Unremarkable Language: Adequate Fund of Knowledge: Adequate Attention and Concentration: Adequate Memory: Unremarkable Mood: Angry, Irritable Affect: Irritable Thought Process & Associations: Other (oppositional) Thought Content: Bizarre thinking (religiously preoccupied), Ideas of reference , Delusional (religiously preoccupied) Hallucination Type: Auditory (denies at this time) Delusion Type: Paranoid, Other (religiously preoccupied) Suicidal Ideation: No Suicidal Plan: No Suicidal Intention: No Homicidal Ideation: No Homicidal Plan: No Homicidal Intention: No Insight: Poor Judgment: Poor Results Vitals/IOs Vital Signs Date Time Temp Pulse Resp B/P (MAP) Pulse Ox O2 Delivery O2 Flow Rate FiO2 06/30/17 06:45 97.5 88 18 122/62 (82) 98 Assessment & Plan Problem List: (1) Schizoaffective disorder, bipolar type ICD Codes: F25.0 - Schizoaffective disorder, bipolar type Assessment & Plan Patient at this time continues to be noted to have irritability, religiously preoccupied, continues to be intrusive and noted to be praying and praising out loud on the unit at times. Continue current treatment, patient will present to [facility] tomorrow for petition for involuntary hospitalization as well as request for him because surrogate and guardian advocate. Discharge planning in progress Justification for Cont. Inpt. At risk for further decompensation if at lower level of care Discharge Planning Unclear whether patient can return back to her residence once psychiatrically stable as patient currently has worn for her arrest. Aronld Morales MD Jun 30, 2017 16:02
[2017-06-30 17:40] VITALS: BP 141/74; PULSE 105; RESP 18; TEMP 98.3; O2SAT 99
[2017-07-01] MEDS: amLODIPine BESYLATE 5 MG TAB PO SCH (10:21)
--- NOTE | 2017-07-01 14:25 | HHI.PYPN ---
Subjective Remarks Patient seen for follow-up, chart review. Patient was presented to mental health court today for physician for involuntary hospitalization which the superior court judge granted. Patient was upset that she was retained for further hospitalization continued to endorse that reasons for her hospitalization were all alive. Patient is aware that there is a warrant for her arrest and upon discharge and any possible that she will be going to correction. Patient stated in court when asked what her plan is that she was discharged patient states that "God will provide Naveed well provide" and was unable to, with some plan upon her discharge. Patient after continued to be irritable and was noted to want to make a grievance report. Review of Systems Except as stated in HPI: all other systems reviewed are Neg Mental Status Examination Appearance: Disheveled Consciousness: Alert Orientation: Person, Place, Date/Time Motor Activity: Normal gait Speech: Other (loud ) Language: Adequate Fund of Knowledge: Adequate Attention and Concentration: Adequate Memory: Unremarkable Mood: Angry, Irritable Affect: Irritable Thought Process & Associations: Other (oppositional) Thought Content: Bizarre thinking (religiously preoccupied), Ideas of reference , Delusional (religiously preoccupied) Hallucination Type: Auditory (denies at this time) Delusion Type: Paranoid, Other (religiously preoccupied) Suicidal Ideation: No Suicidal Plan: No Suicidal Intention: No Homicidal Ideation: No Homicidal Plan: No Homicidal Intention: No Insight: Poor Judgment: Poor Results Vitals/IOs Vital Signs Date Time Temp Pulse Resp B/P (MAP) Pulse Ox O2 Delivery O2 Flow Rate FiO2 06/30/17 17:40 98.3 105 18 141/74 (96) 99 Assessment & Plan Problem List: (1) Schizoaffective disorder, bipolar type ICD Codes: F25.0 - Schizoaffective disorder, bipolar type Assessment & Plan Patient continues to endorse hyper religiosity, poor insight, irritable. Patient currently on involuntary hospitalization after superior court judge for mental health court granted the petition. Patient to adhere to medications including suicide with eyes Depakote 500 mg by mouth twice a day, patient already received Abilify Mike of 400 mg IM at the beginning of admission but requires an additional mood stabilizer such as Depakote for further stabilization. Continue to encourage compliance of medications. If patient continues to refuse will consider starting olanzapine as a mood stabilizer with IM formulation in case patient refuses by mouth. Discharge planning in progress Justification for Cont. Inpt. At risk for further decompensation if at lower level of care Discharge Planning Unclear patient will be discharged back to her residence or will have to go to incarceration due to outstanding warrant. Arnold Morales MD Jul 01, 2017 14:25
--- NOTE | 2017-07-01 14:25 | HHI.PYPN ---
Subjective Remarks Patient seen for follow-up, chart review. Patient was presented to mental health court today for physician for involuntary hospitalization which the area coordinator granted. Patient was upset that she was retained for further hospitalization continued to endorse that reasons for her hospitalization were all alive. Patient is aware that there is a warrant for her arrest and upon discharge and any possible that she will be going to residential. Patient stated in court when asked what her plan is that she was discharged patient states that "God will provide Naveed well provide" and was unable to, with some plan upon her discharge. Patient after continued to be irritable and was noted to want to make a grievance report. Review of Systems Except as stated in HPI: all other systems reviewed are Neg Mental Status Examination Appearance: Disheveled Consciousness: Alert Orientation: Person, Place, Date/Time Motor Activity: Normal gait Speech: Other (loud ) Language: Adequate Fund of Knowledge: Adequate Attention and Concentration: Adequate Memory: Unremarkable Mood: Angry, Irritable Affect: Irritable Thought Process & Associations: Other (oppositional) Thought Content: Bizarre thinking (religiously preoccupied), Ideas of reference , Delusional (religiously preoccupied) Hallucination Type: Auditory (denies at this time) Delusion Type: Paranoid, Other (religiously preoccupied) Suicidal Ideation: No Suicidal Plan: No Suicidal Intention: No Homicidal Ideation: No Homicidal Plan: No Homicidal Intention: No Insight: Poor Judgment: Poor Results Vitals/IOs Vital Signs Date Time Temp Pulse Resp B/P (MAP) Pulse Ox O2 Delivery O2 Flow Rate FiO2 06/30/17 17:40 98.3 105 18 141/74 (96) 99 Assessment & Plan Problem List: (1) Schizoaffective disorder, bipolar type ICD Codes: F25.0 - Schizoaffective disorder, bipolar type Assessment & Plan Patient continues to endorse hyper religiosity, poor insight, irritable. Patient currently on involuntary hospitalization after area coordinator for mental health court granted the petition. Patient to adhere to medications including suicide with eyes Depakote 500 mg by mouth twice a day, patient already received Abilify Mike of 400 mg IM at the beginning of admission but requires an additional mood stabilizer such as Depakote for further stabilization. Continue to encourage compliance of medications. If patient continues to refuse will consider starting olanzapine as a mood stabilizer with IM formulation in case patient refuses by mouth. Discharge planning in progress Justification for Cont. Inpt. At risk for further decompensation if at lower level of care Discharge Planning Unclear patient will be discharged back to her residence or will have to go to incarceration due to outstanding warrant. Arnold Morales MD Jul 01, 2017 14:25
--- NOTE | 2017-07-01 14:25 | HHI.PYPN ---
Subjective Remarks Patient seen for follow-up, chart review. Patient was presented to mental health court today for physician for involuntary hospitalization which the frit mixer and burner granted. Patient was upset that she was retained for further hospitalization continued to endorse that reasons for her hospitalization were all alive. Patient is aware that there is a warrant for her arrest and upon discharge and any possible that she will be going to penitentiary. Patient stated in court when asked what her plan is that she was discharged patient states that "God will provide Naveed well provide" and was unable to, with some plan upon her discharge. Patient after continued to be irritable and was noted to want to make a grievance report. Review of Systems Except as stated in HPI: all other systems reviewed are Neg Mental Status Examination Appearance: Disheveled Consciousness: Alert Orientation: Person, Place, Date/Time Motor Activity: Normal gait Speech: Other (loud ) Language: Adequate Fund of Knowledge: Adequate Attention and Concentration: Adequate Memory: Unremarkable Mood: Angry, Irritable Affect: Irritable Thought Process & Associations: Other (oppositional) Thought Content: Bizarre thinking (religiously preoccupied), Ideas of reference , Delusional (religiously preoccupied) Hallucination Type: Auditory (denies at this time) Delusion Type: Paranoid, Other (religiously preoccupied) Suicidal Ideation: No Suicidal Plan: No Suicidal Intention: No Homicidal Ideation: No Homicidal Plan: No Homicidal Intention: No Insight: Poor Judgment: Poor Results Vitals/IOs Vital Signs Date Time Temp Pulse Resp B/P (MAP) Pulse Ox O2 Delivery O2 Flow Rate FiO2 06/30/17 17:40 98.3 105 18 141/74 (96) 99 Assessment & Plan Problem List: (1) Schizoaffective disorder, bipolar type ICD Codes: F25.0 - Schizoaffective disorder, bipolar type Assessment & Plan Patient continues to endorse hyper religiosity, poor insight, irritable. Patient currently on involuntary hospitalization after frit mixer and burner for mental health court granted the petition. Patient to adhere to medications including suicide with eyes Depakote 500 mg by mouth twice a day, patient already received Abilify Mike of 400 mg IM at the beginning of admission but requires an additional mood stabilizer such as Depakote for further stabilization. Continue to encourage compliance of medications. If patient continues to refuse will consider starting olanzapine as a mood stabilizer with IM formulation in case patient refuses by mouth. Discharge planning in progress Justification for Cont. Inpt. At risk for further decompensation if at lower level of care Discharge Planning Unclear patient will be discharged back to her residence or will have to go to incarceration due to outstanding warrant. Arnold Morales MD Jul 01, 2017 14:25
[2017-07-01 16:11] VITALS: BP 151/88; PULSE 107; RESP 20; TEMP 97.5; O2SAT 99
[2017-07-02 06:25] VITALS: BP 102/53; PULSE 96; RESP 18; O2SAT 99
[2017-07-02] MEDS: amLODIPine BESYLATE 5 MG TAB PO SCH (08:50)
[2017-07-02] MEDS: OLANZapine 5 MG TAB PO SCH ×3 (11:59→21:10)
[2017-07-02] MEDS: OLANZapine IM 10 MG VIAL IM PRN ×2 (11:59→21:46)
--- NOTE | 2017-07-02 16:04 | HHI.PYPN ---
Subjective Remarks Patient seen for follow-up, chart reviewed. Discussion with nursing staff reported the patient is not eating, but did have some breakfast this morning, continues to be noted to be manic, religiously preoccupied having slept okay last evening. Patient noted to be irritable throughout interview, continues to refuse treatment and refusing lab work. Patient continues to argue that she does not need any more medications that she had a red accepted a long-acting injectable initially, and states that she is not eating because she does not want to give into "glutany" she feels she is overweight and despite explanation and of for nutritional requirements for daily pot of a function she continues to report that she did not need to eat. Patient continues report insight into her current symptomatology with report judgment and decreased ability to make sound decisions concerning her health. Review of Systems Except as stated in HPI: all other systems reviewed are Neg Mental Status Examination Appearance: Disheveled Consciousness: Alert Orientation: Person, Place, Date/Time Motor Activity: Normal gait Speech: Other (loud ) Language: Adequate Fund of Knowledge: Adequate Attention and Concentration: Adequate Memory: Unremarkable Mood: Angry, Irritable Affect: Irritable Thought Process & Associations: Other (oppositional) Thought Content: Bizarre thinking (religiously preoccupied), Ideas of reference , Delusional (religiously preoccupied) Hallucination Type: Auditory (denies at this time) Delusion Type: Paranoid, Other (religiously preoccupied) Suicidal Ideation: No Suicidal Plan: No Suicidal Intention: No Homicidal Ideation: No Homicidal Plan: No Homicidal Intention: No Insight: Poor Judgment: Poor Results Vitals/IOs Vital Signs Date Time Temp Pulse Resp B/P (MAP) Pulse Ox O2 Delivery O2 Flow Rate FiO2 07/02/17 06:25 96 18 102/53 (69) 99 07/01/17 16:11 97.5 Assessment & Plan Problem List: (1) Schizoaffective disorder, bipolar type ICD Codes: F25.0 - Schizoaffective disorder, bipolar type Assessment & Plan Patient this time continues to have poor insight, continues to have irritability , religiously preoccupation which she is found that occasionally sitting in the day room out loud, and continues to restrict her nutritional intake. Patient with poor insight, impaired judgment secondary to her symptomatology. Patient was encouraged to adhere to treatment continues to refuse. Patient to start olanzapine 5 mg by mouth twice a day and if refuses will receive 5 mg IM twice a day. Order to have temporary hold for lab draws under the consent of healthcare surrogate. Continue to monitor mood and behavior, continue encourage patient to adhere to treatment regimen. Discharge planning in progress Justification for Cont. Inpt. At risk for further decompensation if at lower level of care Discharge Planning Unclear patient will return back to a residence as patient currently cannot return to her previous facility. Arnold Morales MD Jul 02, 2017 16:04
[2017-07-02] MEDS ORDERED: cloNIDine HCL 0.1 MG/24 HR PATCH T-DERMAL ONE (16:15)
[2017-07-02] MEDS ORDERED: REMOVE OLD PATCH T-DERMAL SCH (17:00)
[2017-07-02 18:07] VITALS: BP 171/88; PULSE 113; RESP 18; TEMP 98.4; O2SAT 99
[2017-07-03 06:04] VITALS: BP 170/88; PULSE 91; RESP 18; TEMP 98.1; O2SAT 99
[2017-07-03] MEDS: OLANZapine 5 MG TAB PO SCH ×2 (09:00→20:50)
[2017-07-03] MEDS: amLODIPine BESYLATE 5 MG TAB PO SCH (09:00)
[2017-07-03] MEDS: OLANZapine IM 10 MG VIAL IM PRN ×2 (09:40→21:17)
--- NOTE | 2017-07-03 14:27 | HHI.PYPN ---
Subjective Remarks Pt seen and discussed with staff. She refused oral medications last night and this morning and received IM zyprexa. She has been out in dayroom reading bible and remains fixated on bahai delusions. No aggressionor agitated. No SI/HI Mental Status Examination Appearance: Disheveled Consciousness: Alert Orientation: Person, Place, Date/Time Motor Activity: Normal gait Speech: Other (loud ) Language: Adequate Fund of Knowledge: Adequate Attention and Concentration: Adequate Memory: Unremarkable Mood: Irritable Affect: Flat Thought Process & Associations: Linear, Other Thought Content: Bizarre thinking (religiously preoccupied), Ideas of reference , Delusional (bahai delusions) Hallucination Type: Auditory (appears internally stimulated) Delusion Type: Paranoid, Other (religiously preoccupied) Suicidal Ideation: No Suicidal Plan: No Suicidal Intention: No Homicidal Ideation: No Homicidal Plan: No Homicidal Intention: No Insight: Poor Judgment: Poor Results Vitals/IOs Vital Signs Date Time Temp Pulse Resp B/P (MAP) Pulse Ox O2 Delivery O2 Flow Rate FiO2 07/03/17 06:04 98.1 91 18 170/88 (115) 99 Assessment & Plan Problem List: (1) Schizoaffective disorder, bipolar type ICD Codes: F25.0 - Schizoaffective disorder, bipolar type Assessment & Plan Continue current tx plan. Estimated LOS: days Justification for Cont. Inpt. impairments in reality construction Sobeida Hernandez MD Jul 03, 2017 14:27
--- NOTE | 2017-07-03 14:27 | HHI.PYPN ---
Subjective Remarks Pt seen and discussed with staff. She refused oral medications last night and this morning and received IM zyprexa. She has been out in dayroom reading bible and remains fixated on jain delusions. No aggressionor agitated. No SI/HI Mental Status Examination Appearance: Disheveled Consciousness: Alert Orientation: Person, Place, Date/Time Motor Activity: Normal gait Speech: Other (loud ) Language: Adequate Fund of Knowledge: Adequate Attention and Concentration: Adequate Memory: Unremarkable Mood: Irritable Affect: Flat Thought Process & Associations: Linear, Other Thought Content: Bizarre thinking (religiously preoccupied), Ideas of reference , Delusional (jain delusions) Hallucination Type: Auditory (appears internally stimulated) Delusion Type: Paranoid, Other (religiously preoccupied) Suicidal Ideation: No Suicidal Plan: No Suicidal Intention: No Homicidal Ideation: No Homicidal Plan: No Homicidal Intention: No Insight: Poor Judgment: Poor Results Vitals/IOs Vital Signs Date Time Temp Pulse Resp B/P (MAP) Pulse Ox O2 Delivery O2 Flow Rate FiO2 07/03/17 06:04 98.1 91 18 170/88 (115) 99 Assessment & Plan Problem List: (1) Schizoaffective disorder, bipolar type ICD Codes: F25.0 - Schizoaffective disorder, bipolar type Assessment & Plan Continue current tx plan. Estimated LOS: days Justification for Cont. Inpt. impairments in reality construction Sobeida Hernandez MD Jul 03, 2017 14:27
--- NOTE | 2017-07-03 14:27 | HHI.PYPN ---
Subjective Remarks Pt seen and discussed with staff. She refused oral medications last night and this morning and received IM zyprexa. She has been out in dayroom reading bible and remains fixated on religion delusions. No aggressionor agitated. No SI/HI Mental Status Examination Appearance: Disheveled Consciousness: Alert Orientation: Person, Place, Date/Time Motor Activity: Normal gait Speech: Other (loud ) Language: Adequate Fund of Knowledge: Adequate Attention and Concentration: Adequate Memory: Unremarkable Mood: Irritable Affect: Flat Thought Process & Associations: Linear, Other Thought Content: Bizarre thinking (religiously preoccupied), Ideas of reference , Delusional (religion delusions) Hallucination Type: Auditory (appears internally stimulated) Delusion Type: Paranoid, Other (religiously preoccupied) Suicidal Ideation: No Suicidal Plan: No Suicidal Intention: No Homicidal Ideation: No Homicidal Plan: No Homicidal Intention: No Insight: Poor Judgment: Poor Results Vitals/IOs Vital Signs Date Time Temp Pulse Resp B/P (MAP) Pulse Ox O2 Delivery O2 Flow Rate FiO2 07/03/17 06:04 98.1 91 18 170/88 (115) 99 Assessment & Plan Problem List: (1) Schizoaffective disorder, bipolar type ICD Codes: F25.0 - Schizoaffective disorder, bipolar type Assessment & Plan Continue current tx plan. Estimated LOS: days Justification for Cont. Inpt. impairments in reality construction Sobeida Hernandez MD Jul 03, 2017 14:27
[2017-07-03 18:26] VITALS: BP 155/82; PULSE 80; RESP 16; TEMP 97.8; O2SAT 99
[2017-07-03 23:59] LABS: BASOPHIL # 0.1 TH/MM3 (0-0.2); BASOPHIL % 0.7 % (0.0-2.0); EOSINOPHIL % 0.3 % (0.0-4.0); HEMATOCRIT 43.5 % (35.0-46.0); HEMOGLOBIN 14.2 GM/DL (11.6-15.3); LYMPH % 22.7 % (9.0-44.0); LYMPHOCYTE # 1.8 TH/MM3 (1.0-4.8); MEAN CELL VOLUME 88.1 FL (80.0-100.0); MEAN CORPUSCULAR HEMOGLOBIN 28.8 PG (27.0-34.0); MEAN CORPUSCULAR HGB CONC 32.6 % (32.0-36.0); MEAN PLATELET VOLUME 9.2 FL (7.0-11.0); MONOCYTE # 1.1 TH/MM3 (0-0.9); NEUT % 62.3 % (16.0-70.0); PLATELET COUNT 352 TH/MM3 (150-450); RED BLOOD COUNT 4.94 MIL/MM3 (4.00-5.30)
[2017-07-04 00:20] LABS: BICARBONATE 23.8 MEQ/L (21.0-32.0); CALCIUM 9.5 MG/DL (8.5-10.1); CREATININE 1.31 MG/DL (0.50-1.00)
[2017-07-04 06:00] VITALS: BP 119/84; PULSE 89; RESP 19; TEMP 98.3; O2SAT 98
[2017-07-04] MEDS: OLANZapine 5 MG TAB PO SCH ×2 (09:00→20:55)
[2017-07-04] MEDS: amLODIPine BESYLATE 5 MG TAB PO SCH (09:00)
[2017-07-04] MEDS: OLANZapine IM 10 MG VIAL IM PRN ×2 (09:34→20:55)
--- NOTE | 2017-07-04 14:08 | HHI.PYPN ---
Subjective Remarks Pt seen and discussed with staff. She continues to refuse oral medications but was compliant with IM. She did allow labs this morning. She spent some time out of room this morning. She has spent the rest of afternoon in room on knees praying compulsively for hours. She is paranoid during interview. No aggression or agitation. She states that she does not need medications. Mental Status Examination Appearance: Disheveled Consciousness: Alert Orientation: Person, Place, Date/Time Motor Activity: Normal gait Speech: Other (loud ) Language: Adequate Fund of Knowledge: Adequate Attention and Concentration: Adequate Memory: Unremarkable Mood: Irritable Affect: Flat Thought Process & Associations: Linear, Other Thought Content: Bizarre thinking (religiously preoccupied), Ideas of reference , Delusional (restorationism delusions) Hallucination Type: Auditory (appears internally stimulated) Delusion Type: Paranoid, Other (religiously preoccupied) Suicidal Ideation: No Suicidal Plan: No Suicidal Intention: No Homicidal Ideation: No Homicidal Plan: No Homicidal Intention: No Insight: Poor Judgment: Poor Results Labs Test 07/03/17 22:44 White Blood Count 8.0 TH/MM3 Red Blood Count 4.94 MIL/MM3 Hemoglobin 14.2 GM/DL Hematocrit 43.5 % Mean Corpuscular Volume 88.1 FL Mean Corpuscular Hemoglobin 28.8 PG Mean Corpuscular Hemoglobin Concent 32.6 % Red Cell Distribution Width 14.0 % Platelet Count 352 TH/MM3 Mean Platelet Volume 9.2 FL Neutrophils (%) (Auto) 62.3 % Lymphocytes (%) (Auto) 22.7 % Monocytes (%) (Auto) 14.0 % Eosinophils (%) (Auto) 0.3 % Basophils (%) (Auto) 0.7 % Neutrophils # (Auto) 5.0 TH/MM3 Lymphocytes # (Auto) 1.8 TH/MM3 Monocytes # (Auto) 1.1 TH/MM3 Eosinophils # (Auto) 0.0 TH/MM3 Basophils # (Auto) 0.1 TH/MM3 CBC Comment DIFF FINAL Differential Comment Blood Urea Nitrogen 43 MG/DL Creatinine 1.31 MG/DL Random Glucose 89 MG/DL Calcium Level 9.5 MG/DL Sodium Level 153 MEQ/L Potassium Level 3.3 MEQ/L Chloride Level 115 MEQ/L Carbon Dioxide Level 23.8 MEQ/L Anion Gap 14 MEQ/L Estimat Glomerular Filtration Rate 52 ML/MIN Vitals/IOs Vital Signs Date Time Temp Pulse Resp B/P (MAP) Pulse Ox O2 Delivery O2 Flow Rate FiO2 07/04/17 06:00 98.3 89 19 119/84 (96) 98 Assessment & Plan Problem List: (1) Schizoaffective disorder, bipolar type ICD Codes: F25.0 - Schizoaffective disorder, bipolar type Assessment & Plan Continue current tx plan. Continue to encourage compliance. Estimated LOS: days Justification for Cont. Inpt. impairments in reality testing Sobeida Hernandez MD Jul 04, 2017 14:08
[2017-07-05 06:29] VITALS: BP 108/61; PULSE 66; RESP 18; TEMP 97.7; O2SAT 97
[2017-07-05] MEDS: OLANZapine 5 MG TAB PO SCH (08:53)
[2017-07-05] MEDS: amLODIPine BESYLATE 5 MG TAB PO SCH (08:53)
[2017-07-05] MEDS: OLANZapine IM 10 MG VIAL IM PRN (09:21)
[2017-07-05] MEDS ORDERED: OLANZapine IM 10 MG VIAL IM PRN (10:30)
--- NOTE | 2017-07-05 11:09 | PD.TTN ---
Patient Problems 1. Discharge planning 2. Medication compliance 3. Knowledge deficit 4. Lack of coping skills Progress Toward Goals Provider Present: Dr. Colette Morales Provider Input: Dr. Haile's treatment team met to discuss patient's treatment plan, discharge and medication. Per Dr. Morales patient is noted to be irritable, guarded, and superficially cooperative and is refusing medication 06/30/17 Patient continues to refuse medications, seclusive, iritable, preoccupied 07/05/17 Patient is religiously preoccupied, starting to eat, medication will be increased Nurse(s) Input: Patient's nurse Areli reports patient being psychotic, occupied, seclusive, delusional, refusing medication. 06/30/17 Patient's nurse Pao reports patient is agitated, is non compliant with medication, religiously preoccupied, no insight 07/05/17 Patient is refusing PO medications, Requests zyprexa IM. Delsuional and paranoid. Believes staff is poisoning her by medicatons. Religiously preoccupied Psychiatric Counselors Present: Jelly Alejo [facility] Psych Therapist Input: Patient presented cooperative but superficial, guarded, religiously preoccupied, affect blunted. Patient denies suicidal and homicidal ideation. Patient denies internally stimulation, however, patient has been seen talking to herself. Patient is exit seeking and refusing her medication 06/30/17 Patient presents intrusive, agitated, restless, seclusive, hostle, affect blunted. Patient's speech is clear, disorganized, with pressure. Patient made good eye contact. Patient is non compliant with medication. Patient is denying suicidal and homicidal ideation. Patient does present with internal stimulation along with delusional content. 07/05/17 Patient presents hostle, refusing to talk. Iritatated. Patient contininues to meet criteria. Group Spec/RT/OT/VILLAGOMEZ Present: DAHLIA Helms, Ender Christianson, OT, DAHLIA Mcgrath Group Spec/RT/OT/VILLAGOMEZ Input: Atif VILLAGOMEZ reports patient is new and has not had time to speak to patient. 06/30/17 Chasity VILLAGOMEZ reports patient does not attend groups, is seclusive to room 09/04/16 Does not attend Documentation Teaching Recipient: Patient Jelly Ale[facility] Jul 05, 2017 11:09
--- NOTE | 2017-07-05 11:09 | PD.TTN ---
Patient Problems 1. Discharge planning 2. Medication compliance 3. Knowledge deficit 4. Lack of coping skills Progress Toward Goals Provider Present: Dr. Colette Morales Provider Input: Dr. Haile's treatment team met to discuss patient's treatment plan, discharge and medication. Per Dr. Morales patient is noted to be irritable, guarded, and superficially cooperative and is refusing medication 06/30/17 Patient continues to refuse medications, seclusive, iritable, preoccupied 07/05/17 Patient is religiously preoccupied, starting to eat, medication will be increased Nurse(s) Input: Patient's nurse Areli reports patient being psychotic, occupied, seclusive, delusional, refusing medication. 06/30/17 Patient's nurse Pao reports patient is agitated, is non compliant with medication, religiously preoccupied, no insight 07/05/17 Patient is refusing PO medications, Requests zyprexa IM. Delsuional and paranoid. Believes staff is poisoning her by medicatons. Religiously preoccupied Psychiatric Counselors Present: Jelly Alejo [facility] Psych Therapist Input: Patient presented cooperative but superficial, guarded, religiously preoccupied, affect blunted. Patient denies suicidal and homicidal ideation. Patient denies internally stimulation, however, patient has been seen talking to herself. Patient is exit seeking and refusing her medication 06/30/17 Patient presents intrusive, agitated, restless, seclusive, hostle, affect blunted. Patient's speech is clear, disorganized, with pressure. Patient made good eye contact. Patient is non compliant with medication. Patient is denying suicidal and homicidal ideation. Patient does present with internal stimulation along with delusional content. 07/05/17 Patient presents hostle, refusing to talk. Iritatated. Patient contininues to meet criteria. Group Spec/RT/OT/VILLAGOMEZ Present: DAHLIA Helms, Ender Christianson, OT, DAHLIA Mcgrath Group Spec/RT/OT/VILLAGOMEZ Input: Atif VILLAGOMEZ reports patient is new and has not had time to speak to patient. 06/30/17 Chasity VILLAGOMEZ reports patient does not attend groups, is seclusive to room 09/04/16 Does not attend Documentation Teaching Recipient: Patient [facility]elly [facility] Jul 05, 2017 11:09
--- NOTE | 2017-07-05 11:09 | PD.TTN ---
Patient Problems 1. Discharge planning 2. Medication compliance 3. Knowledge deficit 4. Lack of coping skills Progress Toward Goals Provider Present: Dr. Colette Morales Provider Input: Dr. Haile's treatment team met to discuss patient's treatment plan, discharge and medication. Per Dr. Morales patient is noted to be irritable, guarded, and superficially cooperative and is refusing medication 06/30/17 Patient continues to refuse medications, seclusive, iritable, preoccupied 07/05/17 Patient is religiously preoccupied, starting to eat, medication will be increased Nurse(s) Input: Patient's nurse Areli reports patient being psychotic, occupied, seclusive, delusional, refusing medication. 06/30/17 Patient's nurse Pao reports patient is agitated, is non compliant with medication, religiously preoccupied, no insight 07/05/17 Patient is refusing PO medications, Requests zyprexa IM. Delsuional and paranoid. Believes staff is poisoning her by medicatons. Religiously preoccupied Psychiatric Counselors Present: Jelly Alejo [facility] Psych Therapist Input: Patient presented cooperative but superficial, guarded, religiously preoccupied, affect blunted. Patient denies suicidal and homicidal ideation. Patient denies internally stimulation, however, patient has been seen talking to herself. Patient is exit seeking and refusing her medication 06/30/17 Patient presents intrusive, agitated, restless, seclusive, hostle, affect blunted. Patient's speech is clear, disorganized, with pressure. Patient made good eye contact. Patient is non compliant with medication. Patient is denying suicidal and homicidal ideation. Patient does present with internal stimulation along with delusional content. 07/05/17 Patient presents hostle, refusing to talk. Iritatated. Patient contininues to meet criteria. Group Spec/RT/OT/VILLAGOMEZ Present: DAHLIA Helms, Ender Christianson, OT, DAHLIA Mcgrath Group Spec/RT/OT/VILLAGOMEZ Input: Atif VILLAGOMEZ reports patient is new and has not had time to speak to patient. 06/30/17 Chasity VILLAGOMEZ reports patient does not attend groups, is seclusive to room 09/04/16 Does not attend Documentation Teaching Recipient: Patient [facility]elly [facility] Jul 05, 2017 11:09
[2017-07-05 11:56] LABS: AUTOMATED NEUTROPHIL # 3.9 TH/MM3 (1.8-7.7); BASOPHIL % 0.8 % (0.0-2.0); EOSINOPHIL % 0.2 % (0.0-4.0); HEMATOCRIT 44.8 % (35.0-46.0); HEMOGLOBIN 14.7 GM/DL (11.6-15.3); LYMPH % 20.9 % (9.0-44.0); LYMPHOCYTE # 1.3 TH/MM3 (1.0-4.8); MEAN CELL VOLUME 88.6 FL (80.0-100.0); MEAN CORPUSCULAR HEMOGLOBIN 29.1 PG (27.0-34.0); MEAN CORPUSCULAR HGB CONC 32.8 % (32.0-36.0); MEAN PLATELET VOLUME 9.6 FL (7.0-11.0); MONO % 16.6 % (0.0-8.0); MONOCYTE # 1.1 TH/MM3 (0-0.9); NEUT % 61.5 % (16.0-70.0); PLATELET COUNT 308 TH/MM3 (150-450); RED BLOOD COUNT 5.06 MIL/MM3 (4.00-5.30); RED CELL DISTRIBUTION WIDTH 14.3 % (11.6-17.2); WHITE BLOOD COUNT 6.3 TH/MM3 (4.0-11.0)
--- NOTE | 2017-07-05 11:56 | PD.CONS ---
[facility] By [facility] Physician No Primary Care Physician Diagnoses: (1) Schizoaffective disorder (2) Hypertension History of Present Illness hx from patient, medical notes, and review of medical records Medical team was reconsulted for abnormal labs, that were done on 07/03/17 night pt denies any recent nausea/ vomiting/ diarrhea. She denies any hematemesis/hematochezia/melena/hematuria. Patient denies any prior history of medical issues. She states that she is not taking any medications at home apart from her psychiatry medications. Her psych medications include Zyprexa by mouth, and IM which she gets at [facility] monthly, and Cogentin. patient is preoccupied with christian thoughts. She is not eating or drinking well while in psychiatry unit. When asked about this, patient states that she should be allowed to practice her episcopal and that she is trying to find. She is not clear how often she wants to 5. According to the nursing staff, patient was not eating or drinking well since she's been here in the hospital. However the reported that for the past 2 days over the weekend, she did improve with her by mouth intake. There was no witnessed episodes of nausea vomiting or bleeding per nursing staff. Apart from the above, patient denies any recent fever/cough/nausea/vomiting/ diarrhea/urinary burning or pain on urination. Denies any chest pain/dizziness/falls/syncopal episodes/abdominal pains. Review of Systems Except as stated in HPI: all other systems reviewed are Neg Past Family Social History Allergies: Coded Allergies: penicillin G (Verified Allergy, Mild, 06/25/17) Past Medical History Denies any previous medical issues apart from psychiatry issues. schizoaffective disorder Past Surgical History Reported Medications Zyprexa by mouth and IM injection Family History Both parents have diabetes Social History Denies smoking/alcohol abuse/drug abuse. Physical Exam Vital Signs Vital Signs Date Time Temp Pulse Resp B/P (MAP) Pulse Ox O2 Delivery O2 Flow Rate FiO2 07/05/17 06:29 97.7 66 18 108/61 (77) 97 07/04/17 17:35 Physical Exam GENERAL: This is a well-nourished, well-developed patient, in no apparent distress. SKIN: No rashes, ecchymoses or lesions. Cool and dry. HEAD: Atraumatic. Normocephalic. No temporal or scalp tenderness. EYES: No scleral icterus. No injection or drainage. ENT: Nose without bleeding, purulent drainage or septal hematoma.. Airway patent. Dry oral mucosa NECK: Trachea midline. No JVD. Supple, nontender, no meningeal signs. CARDIOVASCULAR: Regular rate and rhythm without murmurs, gallops, or rubs. RESPIRATORY: Clear to auscultation. Breath sounds equal bilaterally. No wheezes , rales, or rhonchi. GASTROINTESTINAL: Abdomen soft, non-tender, nondistended. No guarding. MUSCULOSKELETAL: Extremities without clubbing, cyanosis, or edema. No calf tenderness. NEUROLOGICAL: Awake and alert. Motor and sensory grossly within normal limits. Normal speech. Laboratory Laboratory Tests Test 07/05/17 11:33 Result Diagram: 07/03/17224307/03/172243 Assessment and Plan Problem List: (1) Schizoaffective disorder ICD Code: F25.9 - Schizoaffective disorder, unspecified Status: Acute Plan: Management per psychiatry Patient has been refusing medications. (2) Hypertension ICD Code: I10 - Essential (primary) hypertension Status: Chronic Plan: BP has been labile. Probably secondary to intermittent agitation from psychiatric disorder. I do suspect underlying untreated HTN. - Recommends low dose Amlodipine 5 mg daily - Clonidine PRN - Monitor BP. Assessment and Plan Impression: acute renal failure dehydration schizoaffective disorder- with christian preoccupation elevated BP- was on clonidine patch on physical exam- though medical records reveal not administered- pt states this was placed on wednesday and every 7 days low BP on records Plan: repeat labs stat will follow labs and decide on need of iv hydration pt does not want to take po pills or food or water- but is agreeable to iv if needed pt is explained abnormal labs can delay her hospital discharge even after psychiatrist clears her (unless of course if she wants to sign ama at that time , which she states she does not) she is reconsidering about po intake - but wants to fast for christian reasons d/c clonidine patch for now d/c clonidine prn call [facility] if BP is elevated (maybe from rebound htn) and will decide at that time- making sure no other reasons such as agitation/ pain causing elev bp home meds reviewed- aripriprazole im inj, and po; cogentin dvt prophylaxis with ambulation Addendum: Labs reviewed. Patient with significant hypernatremia, acute renal failure, hypokalemia. We'll transfer patient to medical/psychiatry unit [facility]. Patient's LFTs and CPK are also mildly elevated. Therefore would discontinue Tylenol. Also if patient's labs/CPK does not improve with IV hydration, may need to consider stopping IM injections. Discussed Condition With patient, nursing staff Kerry Conley MD Jul 05, 2017 11:56
--- NOTE | 2017-07-05 11:56 | PD.CONS ---
[facility] Phys[facility] No Primary Care Physician Diagnoses: (1) Schizoaffective disorder (2) Hypertension History of Present Illness hx from patient, medical notes, and review of medical records Medical team was reconsulted for abnormal labs, that were done on 07/03/17 night pt denies any recent nausea/ vomiting/ diarrhea. She denies any hematemesis/hematochezia/melena/hematuria. Patient denies any prior history of medical issues. She states that she is not taking any medications at home apart from her psychiatry medications. Her psych medications include Zyprexa by mouth, and IM which she gets at [facility] monthly, and Cogentin. patient is preoccupied with rastafari thoughts. She is not eating or drinking well while in psychiatry unit. When asked about this, patient states that she should be allowed to practice her mandaen and that she is trying to find. She is not clear how often she wants to 5. According to the nursing staff, patient was not eating or drinking well since she's been here in the hospital. However the reported that for the past 2 days over the weekend, she did improve with her by mouth intake. There was no witnessed episodes of nausea vomiting or bleeding per nursing staff. Apart from the above, patient denies any recent fever/cough/nausea/vomiting/ diarrhea/urinary burning or pain on urination. Denies any chest pain/dizziness/falls/syncopal episodes/abdominal pains. Review of Systems Except as stated in HPI: all other systems reviewed are Neg Past Family Social History Allergies: Coded Allergies: penicillin G (Verified Allergy, Mild, 06/25/17) Past Medical History Denies any previous medical issues apart from psychiatry issues. schizoaffective disorder Past Surgical History Reported Medications Zyprexa by mouth and IM injection Family History Both parents have diabetes Social History Denies smoking/alcohol abuse/drug abuse. Physical Exam Vital Signs Vital Signs Date Time Temp Pulse Resp B/P (MAP) Pulse Ox O2 Delivery O2 Flow Rate FiO2 07/05/17 06:29 97.7 66 18 108/61 (77) 97 07/04/17 17:35 Physical Exam GENERAL: This is a well-nourished, well-developed patient, in no apparent distress. SKIN: No rashes, ecchymoses or lesions. Cool and dry. HEAD: Atraumatic. Normocephalic. No temporal or scalp tenderness. EYES: No scleral icterus. No injection or drainage. ENT: Nose without bleeding, purulent drainage or septal hematoma.. Airway patent. Dry oral mucosa NECK: Trachea midline. No JVD. Supple, nontender, no meningeal signs. CARDIOVASCULAR: Regular rate and rhythm without murmurs, gallops, or rubs. RESPIRATORY: Clear to auscultation. Breath sounds equal bilaterally. No wheezes , rales, or rhonchi. GASTROINTESTINAL: Abdomen soft, non-tender, nondistended. No guarding. MUSCULOSKELETAL: Extremities without clubbing, cyanosis, or edema. No calf tenderness. NEUROLOGICAL: Awake and alert. Motor and sensory grossly within normal limits. Normal speech. Laboratory Laboratory Tests Test 07/05/17 11:33 Result Diagram: 07/03/17224307/03/172243 Assessment and Plan Problem List: (1) Schizoaffective disorder ICD Code: F25.9 - Schizoaffective disorder, unspecified Status: Acute Plan: Management per psychiatry Patient has been refusing medications. (2) Hypertension ICD Code: I10 - Essential (primary) hypertension Status: Chronic Plan: BP has been labile. Probably secondary to intermittent agitation from psychiatric disorder. I do suspect underlying untreated HTN. - Recommends low dose Amlodipine 5 mg daily - Clonidine PRN - Monitor BP. Assessment and Plan Impression: acute renal failure dehydration schizoaffective disorder- with rastafari preoccupation elevated BP- was on clonidine patch on physical exam- though medical records reveal not administered- pt states this was placed on wednesday and every 7 days low BP on records Plan: repeat labs stat will follow labs and decide on need of iv hydration pt does not want to take po pills or food or water- but is agreeable to iv if needed pt is explained abnormal labs can delay her hospital discharge even after psychiatrist clears her (unless of course if she wants to sign ama at that time , which she states she does not) she is reconsidering about po intake - but wants to fast for rastafari reasons d/c clonidine patch for now d/[facility] (maybe from rebound htn) and will decide at that time- making sure no other reasons such as agitation/ pain causing elev bp home meds reviewed- aripriprazole im inj, and po; cogentin dvt prophylaxis with ambulation Addendum: Labs reviewed. Patient with significant hypernatremia, acute renal failure, hypokalemia. We'll transfer patient to medical/psychiatry unit [facility]. Patient's LFTs and CPK are also mildly elevated. Therefore would discontinue Tylenol. Also if patient's labs/CPK does not improve with IV hydration, may need to consider stopping IM injections. Discussed Condition With patient, nursing staff Kerry Conley MD Jul 05, 2017 11:56
--- NOTE | 2017-07-05 11:56 | PD.CONS ---
[facility] By [facility] Care Physician No Primary Care Physician Diagnoses: (1) Schizoaffective disorder (2) Hypertension History of Present Illness hx from patient, medical notes, and review of medical records Medical team was reconsulted for abnormal labs, that were done on 07/03/17 night pt denies any recent nausea/ vomiting/ diarrhea. She denies any hematemesis/hematochezia/melena/hematuria. Patient denies any prior history of medical issues. She states that she is not taking any medications at home apart from her psychiatry medications. Her psych medications include Zyprexa by mouth, and IM which she gets at [facility] monthly, and Cogentin. patient is preoccupied with confucianist thoughts. She is not eating or drinking well while in psychiatry unit. When asked about this, patient states that she should be allowed to practice her baptist and that she is trying to find. She is not clear how often she wants to 5. According to the nursing staff, patient was not eating or drinking well since she's been here in the hospital. However the reported that for the past 2 days over the weekend, she did improve with her by mouth intake. There was no witnessed episodes of nausea vomiting or bleeding per nursing staff. Apart from the above, patient denies any recent fever/cough/nausea/vomiting/ diarrhea/urinary burning or pain on urination. Denies any chest pain/dizziness/falls/syncopal episodes/abdominal pains. Review of Systems Except as stated in HPI: all other systems reviewed are Neg Past Family Social History Allergies: Coded Allergies: penicillin G (Verified Allergy, Mild, 06/25/17) Past Medical History Denies any previous medical issues apart from psychiatry issues. schizoaffective disorder Past Surgical History Reported Medications Zyprexa by mouth and IM injection Family History Both parents have diabetes Social History Denies smoking/alcohol abuse/drug abuse. Physical Exam Vital Signs Vital Signs Date Time Temp Pulse Resp B/P (MAP) Pulse Ox O2 Delivery O2 Flow Rate FiO2 07/05/17 06:29 97.7 66 18 108/61 (77) 97 07/04/17 17:35 Physical Exam GENERAL: This is a well-nourished, well-developed patient, in no apparent distress. SKIN: No rashes, ecchymoses or lesions. Cool and dry. HEAD: Atraumatic. Normocephalic. No temporal or scalp tenderness. EYES: No scleral icterus. No injection or drainage. ENT: Nose without bleeding, purulent drainage or septal hematoma.. Airway patent. Dry oral mucosa NECK: Trachea midline. No JVD. Supple, nontender, no meningeal signs. CARDIOVASCULAR: Regular rate and rhythm without murmurs, gallops, or rubs. RESPIRATORY: Clear to auscultation. Breath sounds equal bilaterally. No wheezes , rales, or rhonchi. GASTROINTESTINAL: Abdomen soft, non-tender, nondistended. No guarding. MUSCULOSKELETAL: Extremities without clubbing, cyanosis, or edema. No calf tenderness. NEUROLOGICAL: Awake and alert. Motor and sensory grossly within normal limits. Normal speech. Laboratory Laboratory Tests Test 07/05/17 11:33 Result Diagram: 07/03/17224307/03/172243 Assessment and Plan Problem List: (1) Schizoaffective disorder ICD Code: F25.9 - Schizoaffective disorder, unspecified Status: Acute Plan: Management per psychiatry Patient has been refusing medications. (2) Hypertension ICD Code: I10 - Essential (primary) hypertension Status: Chronic Plan: BP has been labile. Probably secondary to intermittent agitation from psychiatric disorder. I do suspect underlying untreated HTN. - Recommends low dose Amlodipine 5 mg daily - Clonidine PRN - Monitor BP. Assessment and Plan Impression: acute renal failure dehydration schizoaffective disorder- with confucianist preoccupation elevated BP- was on clonidine patch on physical exam- though medical records reveal not administered- pt states this was placed on wednesday and every 7 days low BP on records Plan: repeat labs stat will follow labs and decide on need of iv hydration pt does not want to take po pills or food or water- but is agreeable to iv if needed pt is explained abnormal labs can delay her hospital discharge even after psychiatrist clears her (unless of course if she wants to sign ama at that time , which she states she does not) she is reconsidering about po intake - but wants to fast for confucianist reasons d/c clonidine patch for now d/c clonidine prn call [facility] if BP is elevated (maybe from rebound htn) and will decide at that time- making sure no other reasons such as agitation/ pain causing elev bp home meds reviewed- aripriprazole im inj, and po; cogentin dvt prophylaxis with ambulation Addendum: Labs reviewed. Patient with significant hypernatremia, acute renal failure, hypokalemia. We'll transfer patient to medical/psychiatry unit [facility]. Patient's LFTs and CPK are also mildly elevated. Therefore would discontinue Tylenol. Also if patient's labs/CPK does not improve with IV hydration, may need to consider stopping IM injections. Discussed Condition With patient, nursing staff Kerry Conley MD Jul 05, 2017 11:56
[2017-07-05 12:25] LABS: ALBUMIN 4.1 GM/DL (3.4-5.0); ALKALINE PHOSPHATASE 78 U/L (45-117); ALT (GPT) 83 U/L (10-53); AST (GOT) 80 U/L (15-37); BICARBONATE 27.7 MEQ/L (21.0-32.0); BLOOD UREA NITROGEN 53 MG/DL (7-18); CALCIUM 9.5 MG/DL (8.5-10.1); CHLORIDE 118 MEQ/L (98-107); CREATININE 1.48 MG/DL (0.50-1.00); GLOMERULAR FILTRATION RATE 46 ML/MIN (>89); GLUCOSE,RANDOM 99 MG/DL (74-106); TOTAL BILIRUBIN ADULT 1.9 MG/DL (0.2-1.0)
[2017-07-05 12:32] LABS: SODIUM (NA) 156 MEQ/L (136-145)
[2017-07-05] MEDS: DEXT 5%-NACL 0.45% 1000 ML INJ 1,000 ML IV SCH ×2 (12:45→23:54)
[2017-07-05] MEDS: POTASSIUM CHLOR 20 MEQ PREMIX 100 ML IV SCH ×2 (13:00→17:08)
--- NOTE | 2017-07-05 15:23 | HHI.PYPN ---
Subjective Remarks Patient seen for follow-up, chart review. Patient was found sitting in hospital bed with Bible at bedside noted to be calm and cooperative. Patient states that her weekend went "okay, which she rested and read the Bible over the weekend. Patient states her mood is "good" denies any perceptual disturbances were continues to have restorationist preoccupations. Reviewing patient 's progress notes over the weekend patient was noted to be kneeling and praying out loud in her room and discussion with nursing staff today stated that patient continues to be religiously preoccupied, continues to refuse by mouth medications and continues to get IM meds, continues to be seclusive. Patient has up to now refuse to eat but was noted as per chart having started to eat some of her meals yesterday. Patient was notified of recent abnormal labs which discussion for concern of her ability to care for herself was reviewed which patient only nodded. She was encouraged to increase the oh intake as well as to take medications by mouth but continues to refuse at this time. Patient was advised hospitalization may need to be transferred to the medical/ psychiatry unit for medical management of recent abnormal labs. Review of Systems Except as stated in HPI: all other systems reviewed are Neg Mental Status Examination Appearance: Disheveled Consciousness: Alert Orientation: Person, Place, Date/Time Motor Activity: Normal gait Speech: Other (loud ) Language: Adequate Fund of Knowledge: Adequate Attention and Concentration: Adequate Memory: Unremarkable Mood: Irritable Affect: Flat Thought Process & Associations: Linear, Other Thought Content: Bizarre thinking (religiously preoccupied), Ideas of reference , Delusional (restorationist delusions) Hallucination Type: Auditory (appears internally stimulated) Delusion Type: Paranoid, Other (religiously preoccupied) Suicidal Ideation: No Suicidal Plan: No Suicidal Intention: No Homicidal Ideation: No Homicidal Plan: No Homicidal Intention: No Insight: Poor Judgment: Poor Results Labs labs reviewed Test 07/05/17 11:33 White Blood Count 6.3 TH/MM3 Red Blood Count 5.06 MIL/MM3 Hemoglobin 14.7 GM/DL Hematocrit 44.8 % Mean Corpuscular Volume 88.6 FL Mean Corpuscular Hemoglobin 29.1 PG Mean Corpuscular Hemoglobin Concent 32.8 % Red Cell Distribution Width 14.3 % Platelet Count 308 TH/MM3 Mean Platelet Volume 9.6 FL Neutrophils (%) (Auto) 61.5 % Lymphocytes (%) (Auto) 20.9 % Monocytes (%) (Auto) 16.6 % Eosinophils (%) (Auto) 0.2 % Basophils (%) (Auto) 0.8 % Neutrophils # (Auto) 3.9 TH/MM3 Lymphocytes # (Auto) 1.3 TH/MM3 Monocytes # (Auto) 1.1 TH/MM3 Eosinophils # (Auto) 0.0 TH/MM3 Basophils # (Auto) 0.0 TH/MM3 CBC Comment DIFF FINAL Differential Comment Blood Urea Nitrogen 53 MG/DL Creatinine 1.48 MG/DL Random Glucose 99 MG/DL Total Protein 10.0 GM/DL Albumin 4.1 GM/DL Calcium Level 9.5 MG/DL Alkaline Phosphatase 78 U/L Aspartate Amino Transf (AST/SGOT) 80 U/L Alanine Aminotransferase (ALT/SGPT) 83 U/L Total Bilirubin 1.9 MG/DL Sodium Level 156 MEQ/L Potassium Level 3.3 MEQ/L Chloride Level 118 MEQ/L Carbon Dioxide Level 27.7 MEQ/L Anion Gap 10 MEQ/L Estimat Glomerular Filtration Rate 46 ML/MIN Total Creatine Kinase 600 U/L Creatine Kinase MB 1.7 NG/ML Creatine Kinase MB % 0.3 % Vitals/IOs Vital Signs Date Time Temp Pulse Resp B/P (MAP) Pulse Ox O2 Delivery O2 Flow Rate FiO2 07/05/17 06:29 97.7 66 18 108/61 (77) 97 Assessment & Plan Problem List: (1) Schizoaffective disorder, bipolar type ICD Codes: F25.0 - Schizoaffective disorder, bipolar type Assessment & Plan Patient this time continues to have restorationist preoccupation, continues refused by mouth intake as well as by mouth meds. Hospitalist consult requested and input appreciated. Patient was transferred to medical/psychiatry unit for further medical management to recent abnormal labs. We'll increase olanzapine 10 mg by mouth twice a day as patient continues to be religiously preoccupied and refusing to eat. As per hospitalist consult note IM medication may need to be halted as it may be contributing to patient's increasing CK level. Repeat labs have been ordered by medical team and awaiting recommendations. Continue rest of medications discharge planning in progress Justification for Cont. Inpt. At risk for further decompensation if at lower level of care Discharge Planning Patient to be discharged back to her residence or into the legal system due to outstanding warrant upon discharge. Arnold Morales MD Jul 05, 2017 15:23
[2017-07-05 18:44] VITALS: BP 116/56; PULSE 113; RESP 20; TEMP 97.2; O2SAT 94
[2017-07-05] MEDS: OLANZapine 10 MG TAB PO SCH (21:00)
[2017-07-06 06:03] VITALS: BP 138/61; PULSE 94; RESP 16; TEMP 98.3; O2SAT 97
[2017-07-06] MEDS: OLANZapine 10 MG TAB PO SCH ×2 (09:00→20:50)
[2017-07-06] MEDS: amLODIPine BESYLATE 5 MG TAB PO SCH (09:00)
[2017-07-06 09:19] LABS: AUTOMATED NEUTROPHIL # 3.6 TH/MM3 (1.8-7.7); BASOPHIL % 0.7 % (0.0-2.0); EOSINOPHIL # 0.1 TH/MM3 (0-0.4); EOSINOPHIL % 1.7 % (0.0-4.0); HEMATOCRIT 40.1 % (35.0-46.0); HEMOGLOBIN 13.3 GM/DL (11.6-15.3); LYMPH % 22.9 % (9.0-44.0); LYMPHOCYTE # 1.4 TH/MM3 (1.0-4.8); MEAN CELL VOLUME 88.1 FL (80.0-100.0); MEAN CORPUSCULAR HEMOGLOBIN 29.2 PG (27.0-34.0); MEAN CORPUSCULAR HGB CONC 33.1 % (32.0-36.0); MEAN PLATELET VOLUME 9.5 FL (7.0-11.0); MONO % 17.4 % (0.0-8.0); MONOCYTE # 1.1 TH/MM3 (0-0.9); NEUT % 57.3 % (16.0-70.0); PLATELET COUNT 255 TH/MM3 (150-450); RED BLOOD COUNT 4.55 MIL/MM3 (4.00-5.30); RED CELL DISTRIBUTION WIDTH 14.4 % (11.6-17.2); WHITE BLOOD COUNT 6.3 TH/MM3 (4.0-11.0)
[2017-07-06] MEDS: DEXT 5%-NACL 0.45% 1000 ML INJ 1,000 ML IV SCH ×2 (09:27→18:49)
--- NOTE | 2017-07-06 09:45 | HHI.PYPN ---
Subjective Remarks Patient seen for follow up, chart reviewed. Patient was transferred to the medical/psychiatry unit for medical management of recent acute kidney failure and dehydration secondary to patient refusing to eat and drink or take by mouth medications require IM administration of antipsychotic. Patient was found lying in hospital bed, cooperative today with interview. Patient states that she is fasting due to her orthodoxy beliefs and that Naveed is the "ultimate physician" and that he will provide for her. It was explained to patient that her refusal for nutritional intake has now caused acute kidney injury was encouraged to start having nutritional intake to avoid further injury. Patient continues to be was preoccupied stating that "God will provide" but states that she will think about starting to eat again. Patient requests to speak with primary inbound customer service representative as this person is her healthcare surrogate guardian advocate. Review of Systems Except as stated in HPI: all other systems reviewed are Neg Mental Status Examination Appearance: Appropriate Consciousness: Alert Orientation: Person, Place, Date/Time Motor Activity: Normal gait Speech: Unremarkable Language: Adequate Fund of Knowledge: Adequate Attention and Concentration: Adequate Memory: Unremarkable Mood: Irritable (less so today) Affect: Other (restricted but would smile on occasion) Thought Process & Associations: Linear Thought Content: Bizarre thinking (religiously preoccupied), Delusional ( orthodoxy delusions) Hallucination Type: None Delusion Type: Paranoid, Other (religiously preoccupied) Suicidal Ideation: No Suicidal Plan: No Suicidal Intention: No Homicidal Ideation: No Homicidal Plan: No Homicidal Intention: No Insight: Poor Judgment: Poor Results Labs Labs reviewed. Test 07/05/17 11:33 07/06/17 09:05 07/06/17 09:15 White Blood Count 6.3 TH/MM3 6.3 TH/MM3 Red Blood Count 5.06 MIL/MM3 4.55 MIL/MM3 Hemoglobin 14.7 GM/DL 13.3 GM/DL Hematocrit 44.8 % 40.1 % Mean Corpuscular Volume 88.6 FL 88.1 FL Mean Corpuscular Hemoglobin 29.1 PG 29.2 PG Mean Corpuscular Hemoglobin Concent 32.8 % 33.1 % Red Cell Distribution Width 14.3 % 14.4 % Platelet Count 308 TH/MM3 255 TH/MM3 Mean Platelet Volume 9.6 FL 9.5 FL Neutrophils (%) (Auto) 61.5 % 57.3 % Lymphocytes (%) (Auto) 20.9 % 22.9 % Monocytes (%) (Auto) 16.6 % 17.4 % Eosinophils (%) (Auto) 0.2 % 1.7 % Basophils (%) (Auto) 0.8 % 0.7 % Neutrophils # (Auto) 3.9 TH/MM3 3.6 TH/MM3 Lymphocytes # (Auto) 1.3 TH/MM3 1.4 TH/MM3 Monocytes # (Auto) 1.1 TH/MM3 1.1 TH/MM3 Eosinophils # (Auto) 0.0 TH/MM3 0.1 TH/MM3 Basophils # (Auto) 0.0 TH/MM3 0.0 TH/MM3 CBC Comment DIFF FINAL DIFF FINAL Differential Comment Blood Urea Nitrogen 53 MG/DL Creatinine 1.48 MG/DL Random Glucose 99 MG/DL Total Protein 10.0 GM/DL Albumin 4.1 GM/DL Calcium Level 9.5 MG/DL Alkaline Phosphatase 78 U/L Aspartate Amino Transf (AST/SGOT) 80 U/L Alanine Aminotransferase (ALT/SGPT) 83 U/L Total Bilirubin 1.9 MG/DL Sodium Level 156 MEQ/L Potassium Level 3.3 MEQ/L Chloride Level 118 MEQ/L Carbon Dioxide Level 27.7 MEQ/L Anion Gap 10 MEQ/L Estimat Glomerular Filtration Rate 46 ML/MIN Total Creatine Kinase 600 U/L Creatine Kinase MB 1.7 NG/ML Creatine Kinase MB % 0.3 % Vitals/IOs Vital Signs Date Time Temp Pulse Resp B/P (MAP) Pulse Ox O2 Delivery O2 Flow Rate FiO2 07/06/17 06:03 98.3 94 16 138/61 (86) 97 Intake and Output 07/06/17 07/06/17 07/07/17 08:00 16:00 00:00 Intake Total 480 ml 1000 ml Balance 480 ml 1000 ml Assessment & Plan Problem List: (1) Schizoaffective disorder, bipolar type ICD Codes: F25.0 - Schizoaffective disorder, bipolar type Assessment & Plan Patient at this time continues to be religiously preoccupied refusing to intake medications or nutritional intake. Patient was encouraged to maintain basic nutritional intake to avoid further dehydration and kidney injury. Patient's current psychosis and delusions continue to impede patient's ability to care for self and she believes that God will care for her despite her not adequately keeping her basic nutrition up. Continue to encourage patient to take medications by mouth, will hold olanzapine 10 mg IM for now due to elevated CK level. Patient continues to be on IV hydration, recommendations as per primary medical team. Discharge planning in progress Justification for Cont. Inpt. At risk for further decompensation if at lower level of care Discharge Planning Patient to return back to a residence and is willing to accept her once psychiatrically and medically stable Arnold Morales MD Jul 06, 2017 09:45
[2017-07-06 09:56] LABS: BICARBONATE 26.1 MEQ/L (21.0-32.0); CALCIUM 8.8 MG/DL (8.5-10.1); CREATININE 1.25 MG/DL (0.50-1.00)
[2017-07-06] MEDS ORDERED: SODIUM CHLOR 0.9% 1000 ML INJ 1,000 ML IV SCH (15:00)
--- NOTE | 2017-07-06 15:04 | HHI.PR ---
Subjective Remarks This is a pleasant 46 y/o Female consulted yesterday due to that she is not eating or drinking, Her psych medications include Zyprexa by mouth, and IM which she gets at [facility] monthly, and Cogentin. She has Morbid Obesity, Schizoaffective disorder. no complaint at this time discussed also with nurse Miss Roberto. Objective Vital Signs Date Time Temp Pulse Resp B/P (MAP) Pulse Ox O2 Delivery O2 Flow Rate FiO2 07/06/17 06:03 98.3 94 16 138/61 (86) 97 07/05/17 18:44 97.2 113 20 116/56 (76) 94 I/O 07/05/17 07/05/17 07/05/17 07/06/17 07/06/17 07/06/17 07:00 15:00 23:00 07:00 15:00 23:00 Intake Total 360 ml 480 ml 1000 ml Balance 360 ml 480 ml 1000 ml Intake Oral 360 ml 480 ml IV Total 1000 ml # Voids 1 2 Result Diagram: 07/06/1715 07/06/17 0905 Imaging No new Imaging studies. Procedures None Other Results Laboratory Tests Test 06/28/17 08:00 07/05/17 11:33 07/06/17 09:05 07/06/17 09:15 Hemoglobin A1c 5.4 % Triglycerides Level 58 MG/DL Cholesterol Level 154 MG/DL LDL Cholesterol 85 MG/DL HDL Cholesterol 57.2 MG/DL Cholesterol/HDL Ratio 2.69 RATIO Vitamin B12 Level 1681 PG/ML 25-Hydroxy Vitamin D Total 7.4 ng/ML Thyroid Stimulating Hormone 3rd Gen 1.490 uIU/ML Blood Urea Nitrogen 53 MG/DL 41 MG/DL Creatinine 1.48 MG/DL 1.25 MG/DL Random Glucose 99 MG/DL 130 MG/DL Total Protein 10.0 GM/DL Albumin 4.1 GM/DL Calcium Level 9.5 MG/DL 8.8 MG/DL Alkaline Phosphatase 78 U/L Aspartate Amino Transf (AST/SGOT) 80 U/L Alanine Aminotransferase (ALT/SGPT) 83 U/L Total Bilirubin 1.9 MG/DL Sodium Level 156 MEQ/L 153 MEQ/L Potassium Level 3.3 MEQ/L 3.3 MEQ/L Chloride Level 118 MEQ/L 118 MEQ/L Carbon Dioxide Level 27.7 MEQ/L 26.1 MEQ/L Creatine Kinase MB % 0.3 % Anion Gap 9 MEQ/L Estimat Glomerular Filtration Rate 55 ML/MIN Total Creatine Kinase 631 U/L White Blood Count 6.3 TH/MM3 Red Blood Count 4.55 MIL/MM3 Hemoglobin 13.3 GM/DL Hematocrit 40.1 % Mean Corpuscular Volume 88.1 FL Mean Corpuscular Hemoglobin 29.2 PG Mean Corpuscular Hemoglobin Concent 33.1 % Red Cell Distribution Width 14.4 % Platelet Count 255 TH/MM3 Mean Platelet Volume 9.5 FL Neutrophils (%) (Auto) 57.3 % Lymphocytes (%) (Auto) 22.9 % Monocytes (%) (Auto) 17.4 % Eosinophils (%) (Auto) 1.7 % Basophils (%) (Auto) 0.7 % Neutrophils # (Auto) 3.6 TH/MM3 Lymphocytes # (Auto) 1.4 TH/MM3 Monocytes # (Auto) 1.1 TH/MM3 Eosinophils # (Auto) 0.1 TH/MM3 Basophils # (Auto) 0.0 TH/MM3 CBC Comment DIFF FINAL Differential Comment Objective Remarks GENERAL: Morbid Obese patient in no acute distress. SKIN: No rashes, ecchymoses or lesions. Cool and dry. HEAD: Atraumatic. Normocephalic. No temporal or scalp tenderness. EYES: No scleral icterus. No injection or drainage. ENT: Nose without bleeding, purulent drainage or septal hematoma.. Airway patent. Dry oral mucosa NECK: Trachea midline. No JVD. Supple, nontender, no meningeal signs. CARDIOVASCULAR: Regular rate and rhythm without murmurs, gallops, or rubs. RESPIRATORY: Clear to auscultation. Breath sounds equal bilaterally. No wheezes , rales, or rhonchi. GASTROINTESTINAL: Abdomen soft, non-tender, nondistended. No guarding. MUSCULOSKELETAL: Extremities without clubbing, cyanosis, or edema. No calf tenderness. NEUROLOGICAL: Awake and alert. Motor and sensory grossly within normal limits. Normal speech. Medications and IVs Current Medications Medications (Trade) Dose Ordered Sig/Galen Route Start Time Stop Time Status Last Admin (Ativan) 1 mg Q6H PRN PO 06/25/17 20:45 Future Hold (Ativan Inj) 1 mg Q6H PRN IM 06/25/17 20:45 Future Hold (Benadryl) 50 mg Q6H PRN PO 06/25/17 20:45 Future Hold (Benadryl Inj) 50 mg Q6H PRN IM 06/25/17 20:45 Future Hold (Milk Of Magnesia Liq) 30 ml DAILY PRN PO 06/25/17 20:45 (Mag-Al Plus Susp Liq) 30 ml Q6H PRN PO 06/25/17 20:45 (Cogentin) 1 mg HS PO 06/28/17 21:00 Future Hold (Norvasc) 5 mg DAILY PO 06/29/17 09:00 Non-Formulary Medication Aripiprazole ER Inj (Abil... Q28D IM 06/28/17 20:00 Future hold 06/28/17 21:15 (Hadley Flores) 500 mg BID PO 06/29/17 12:00 Future Hold Miscellaneous Information 1 Q7D T-DERMAL 07/02/17 17:00 07/09/17 17:01 (ZyPREXA) 10 mg Q12HR PO 07/05/17 21:00 (ZyPREXA INJ) 10 mg Q12H PRN IM 07/05/17 10:30 Dextrose/Sodium Chloride 1,000 ml @ 100 mls/hr Q10H IV 07/05/17 12:45 07/06/17 09:27 A/P Assessment and Plan 1. Schizoaffective Disorder to continue management as per Psychiatry specialist 2. Hypertension controlled continue actual management. 3. Morbid Obesity strongly recommended diet and exercise. 4. Acute Renal Injury on IV fluids will continue half normal saline at this time and follow 5. Hypokalemia replaced IV with 30 meq of Potassium chloride and following 6. Hypernatremia continue present care with half normal saline. Follow laboratory in am tomorrow discussed with patient in the room and with nurse Miss Roberto appreciated, all questions answered to the best of my abilities. Discharge Planning as per Attending physician. Severo Jenkins MD Jul 06, 2017 15:04
[2017-07-06] MEDS: POTASSIUM CHLOR 10 MEQ PREMIX 100 ML IV SCH ×3 (15:41→19:15)
[2017-07-06] MEDS ORDERED: SODIUM CHLOR 0.45% 1000 ML INJ 1,000 ML IV SCH (17:30)
[2017-07-07] MEDS: DEXT 5%-NACL 0.45% 1000 ML INJ 1,000 ML IV SCH ×2 (02:00→10:23)
[2017-07-07 05:49] VITALS: BP 114/54; PULSE 73; RESP 19; TEMP 97.5; O2SAT 96
--- NOTE | 2017-07-07 08:39 | HHI.PR ---
Subjective Remarks This is a pleasant 46 y/o Female consulted yesterday due to that she is not eating or drinking, Her psych medications include Zyprexa by mouth, and IM which she gets at [facility] monthly, and Cogentin. She has Morbid Obesity, Schizoaffective disorder. no complaint at this time discussed also with nurse Miss Roberto. 07/07: Stable seen in her Bedroom in the presence of nurse Mr. Barrientos, as per Doctor Arnold Morales he wanted for me to discuss with the patient and notify her about her actual condition, due to that the patient has a Court order and she has to be released and she does not want to accept what was recommended by her Medical Attendings she has Hypernatremia she is not eating or drinking and developed Hypernatremia, and acute renal injury, at this time did not wanted to get the Laboratory for today, also wants to go home now, was explained in the presence of nurse Mr. Barrientos that she will need to drink plenty of fluids at least 3000 mls daily for the next 3 days, to avoid renal complications, she states Naveed will improve her and she wants to go now. Objective Vital Signs Date Time Temp Pulse Resp B/P (MAP) Pulse Ox O2 Delivery O2 Flow Rate FiO2 07/07/17 05:49 97.5 73 19 114/54 (74) 96 I/O 07/06/17 07/06/17 07/06/17 07/07/17 07/07/17 07/07/17 07:00 15:00 23:00 07:00 15:00 23:00 Intake Total 480 ml 1000 ml 1070 ml 240 ml Balance 480 ml 1000 ml 1070 ml 240 ml Intake Oral 480 ml 480 ml 240 ml IV Total 1000 ml 590 ml # Voids 2 1 2 Result Diagram: 07/06/17 0915 07/06/17 0905 Imaging no new imaging studies Procedures None Other Results Laboratory Tests Test 06/28/17 08:00 07/05/17 11:33 07/06/17 09:05 07/06/17 09:15 Hemoglobin A1c 5.4 % Triglycerides Level 58 MG/DL Cholesterol Level 154 MG/DL LDL Cholesterol 85 MG/DL HDL Cholesterol 57.2 MG/DL Cholesterol/HDL Ratio 2.69 RATIO Vitamin B12 Level 1681 PG/ML 25-Hydroxy Vitamin D Total 7.4 ng/ML Thyroid Stimulating Hormone 3rd Gen 1.490 uIU/ML Blood Urea Nitrogen 53 MG/DL 41 MG/DL Creatinine 1.48 MG/DL 1.25 MG/DL Random Glucose 99 MG/DL 130 MG/DL Total Protein 10.0 GM/DL Albumin 4.1 GM/DL Calcium Level 9.5 MG/DL 8.8 MG/DL Alkaline Phosphatase 78 U/L Aspartate Amino Transf (AST/SGOT) 80 U/L Alanine Aminotransferase (ALT/SGPT) 83 U/L Total Bilirubin 1.9 MG/DL Sodium Level 156 MEQ/L 153 MEQ/L Potassium Level 3.3 MEQ/L 3.3 MEQ/L Chloride Level 118 MEQ/L 118 MEQ/L Carbon Dioxide Level 27.7 MEQ/L 26.1 MEQ/L Anion Gap 9 MEQ/L Estimat Glomerular Filtration Rate 55 ML/MIN Total Creatine Kinase 631 U/L Creatine Kinase MB 1.5 NG/ML Creatine Kinase MB % 0.2 % White Blood Count 6.3 TH/MM3 Red Blood Count 4.55 MIL/MM3 Hemoglobin 13.3 GM/DL Hematocrit 40.1 % Mean Corpuscular Volume 88.1 FL Mean Corpuscular Hemoglobin 29.2 PG Mean Corpuscular Hemoglobin Concent 33.1 % Red Cell Distribution Width 14.4 % Platelet Count 255 TH/MM3 Mean Platelet Volume 9.5 FL Neutrophils (%) (Auto) 57.3 % Lymphocytes (%) (Auto) 22.9 % Monocytes (%) (Auto) 17.4 % Eosinophils (%) (Auto) 1.7 % Basophils (%) (Auto) 0.7 % Neutrophils # (Auto) 3.6 TH/MM3 Lymphocytes # (Auto) 1.4 TH/MM3 Monocytes # (Auto) 1.1 TH/MM3 Eosinophils # (Auto) 0.1 TH/MM3 Basophils # (Auto) 0.0 TH/MM3 CBC Comment DIFF FINAL Differential Comment Objective Remarks GENERAL: Morbid Obese patient in no acute distress. SKIN: No rashes, ecchymoses or lesions. Cool and dry. HEAD: Atraumatic. Normocephalic. No temporal or scalp tenderness. EYES: No scleral icterus. No injection or drainage. ENT: Nose without bleeding, purulent drainage or septal hematoma.. Airway patent. Dry oral mucosa NECK: Trachea midline. No JVD. Supple, nontender, no meningeal signs. CARDIOVASCULAR: Regular rate and rhythm without murmurs, gallops, or rubs. RESPIRATORY: Clear to auscultation. Breath sounds equal bilaterally. No wheezes , rales, or rhonchi. GASTROINTESTINAL: Abdomen soft, non-tender, nondistended. No guarding. MUSCULOSKELETAL: Extremities without clubbing, cyanosis, or edema. No calf tenderness. NEUROLOGICAL: Awake and alert. Motor and sensory grossly within normal limits. Normal speech. Medications and IVs Current Medications Medications (Trade) Dose Ordered Sig/Galen Route Start Time Stop Time Status Last Admin (Ativan) 1 mg Q6H PRN PO 06/25/17 20:45 Future Hold (Ativan Inj) 1 mg Q6H PRN IM 06/25/17 20:45 Future Hold (Benadryl) 50 mg Q6H PRN PO 06/25/17 20:45 Future Hold (Benadryl Inj) 50 mg Q6H PRN IM 06/25/17 20:45 Future Hold (Milk Of Magnesia Liq) 30 ml DAILY PRN PO 06/25/17 20:45 (Mag-Al Plus Susp Liq) 30 ml Q6H PRN PO 06/25/17 20:45 (Cogentin) 1 mg HS PO 06/28/17 21:00 Future Hold (Norvasc) 5 mg DAILY PO 06/29/17 09:00 Non-Formulary Medication Aripiprazole ER Inj (Abil... Q28D IM 06/28/17 20:00 Future hold 06/28/17 21:15 (Depakote Dr) 500 mg BID PO 06/29/17 12:00 Future Hold Miscellaneous Information 1 Q7D T-DERMAL 07/02/17 17:00 07/09/17 17:01 (ZyPREXA) 10 mg Q12HR PO 07/05/17 21:00 (ZyPREXA INJ) 10 mg Q12H PRN IM 07/05/17 10:30 Future Hold Dextrose/Sodium Chloride 1,000 ml @ 125 mls/hr Q8H IV 07/06/17 18:00 07/06/17 18:49 A/P Assessment and Plan 1. Schizoaffective Disorder to continue management as per Psychiatry specialist 2. Hypertension controlled continue actual management. 3. Morbid Obesity strongly recommended diet and exercise. 4. Acute Renal Injury on IV fluids will continue half normal saline at this time and follow 5. Hypokalemia replaced IV with 30 meq of Potassium chloride and following 6. Hypernatremia continue present care with half normal saline. Patient refused Medicines, Explained the probable consequence of going home without management but she states Naveed will cure her Court order to release patient now Documented the patient will go home against medical Advise. discussed with patient in the room and with nurse Mr Barrientos autumn, all questions answered to the best of my abilities. Discharge Planning as per Attending physician. Severo Jenkins MD Jul 07, 2017 08:39
[2017-07-07] MEDS: OLANZapine 10 MG TAB PO SCH (09:06)
[2017-07-07] MEDS: amLODIPine BESYLATE 5 MG TAB PO SCH (09:06)
[2017-07-07] MEDS ORDERED: OLAN10TA PO (09:39)
[2017-07-07 12:42] LABS: BICARBONATE 23.7 MEQ/L (21.0-32.0); CALCIUM 8.4 MG/DL (8.5-10.1); CREATININE 0.91 MG/DL (0.50-1.00)
--- NOTE | 2017-07-07 12:56 | PD.TTN ---
Patient Problems 1. Discharge planning 2. Medication compliance 3. Knowledge deficit 4. Lack of coping skills Progress Toward Goals Provider Present: Dr. Colette Morales Provider Input: Patient continues to be treated by medical due to her lack of food and liquid intake; patient has been refusing psych medications and most of her medical treatment Dr. Haile's treatment team met to discuss patient's treatment plan, discharge and medication. Per Dr. Morales patient is noted to be irritable, guarded, and superficially cooperative and is refusing medication 06/30/17 Patient continues to refuse medications, seclusive, iritable, preoccupied 07/05/17 Patient is religiously preoccupied, starting to eat, medication will be increased Nurse(s) Present: Francisco Javier Treviño, RN Nurse(s) Input: Per Francisco Javier, patient continues to refuse meals and liquids, she only eat ice cheeps and is very religiously preoccupied Patient's nurse Areli reports patient being psychotic, occupied, seclusive, delusional, refusing medication. 06/30/17 Patient's nurse Poa reports patient is agitated, is non compliant with medication, religiously preoccupied, no insight 07/05/17 Patient is refusing PO medications, Requests zyprexa IM. Delsuional and paranoid. Believes staff is poisoning her by medicatons. Religiously preoccupied Psychiatric Counselors Present: Jelly Alejo, [facility], Cassidy Bai, [facility] Psych Therapist Input: Patient is coached with meals, encouraged with medication and activities. Patient is extremely religiously preoccupied and refuses to comply with treatment plan/treatment. Patient presented cooperative but superficial, guarded, religiously preoccupied, affect blunted. Patient denies suicidal and homicidal ideation. Patient denies internally stimulation, however, patient has been seen talking to herself. Patient is exit seeking and refusing her medication 06/30/17 Patient presents intrusive, agitated, restless, seclusive, hostle, affect blunted. Patient's speech is clear, disorganized, with pressure. Patient made good eye contact. Patient is non compliant with medication. Patient is denying suicidal and homicidal ideation. Patient does present with internal stimulation along with delusional content. 07/05/17 Patient presents hostle, refusing to talk. Iritatated. Patient contininues to meet criteria. Group Spec/RT/OT/VILLAGOMEZ Present: DAHLIA Helms, Ender Christianson, OT, DAHLIA Mcgrath Group Spec/RT/OT/VILLAGOMEZ Input: Per Chasity, patient does not attend groups, however she is encouraged to do so Atif VILLAGOMEZ reports patient is new and has not had time to speak to patient. 06/30/17 Chasity VILLAGOMEZ reports patient does not attend groups, is seclusive to room 09/04/16 Does not attend Documentation Scribe: EDITH Aguila Teaching Recipient: Patient RichardsonCassidy [facility] Jul 07, 2017 12:55
--- NOTE | 2017-07-07 12:56 | PD.TTN ---
Patient Problems 1. Discharge planning 2. Medication compliance 3. Knowledge deficit 4. Lack of coping skills Progress Toward Goals Provider Present: Dr. Colette Morales Provider Input: Patient continues to be treated by medical due to her lack of food and liquid intake; patient has been refusing psych medications and most of her medical treatment Dr. Haile's treatment team met to discuss patient's treatment plan, discharge and medication. Per Dr. Morales patient is noted to be irritable, guarded, and superficially cooperative and is refusing medication 06/30/17 Patient continues to refuse medications, seclusive, iritable, preoccupied 07/05/17 Patient is religiously preoccupied, starting to eat, medication will be increased Nurse(s) Present: Francisco Javier Treviño, RN Nurse(s) Input: Per Francisco Javier, patient continues to refuse meals and liquids, she only eat ice cheeps and is very religiously preoccupied Patient's nurse Areli reports patient being psychotic, occupied, seclusive, delusional, refusing medication. 06/30/17 Patient's nurse Pao reports patient is agitated, is non compliant with medication, religiously preoccupied, no insight 07/05/17 Patient is refusing PO medications, Requests zyprexa IM. Delsuional and paranoid. Believes staff is poisoning her by medicatons. Religiously preoccupied Psychiatric Counselors Present: Jelly Alejo, [facility], Cassidy Bai, [facility] Psych Therapist Input: Patient is coached with meals, encouraged with medication and activities. Patient is extremely religiously preoccupied and refuses to comply with treatment plan/treatment. Patient presented cooperative but superficial, guarded, religiously preoccupied, affect blunted. Patient denies suicidal and homicidal ideation. Patient denies internally stimulation, however, patient has been seen talking to herself. Patient is exit seeking and refusing her medication 06/30/17 Patient presents intrusive, agitated, restless, seclusive, hostle, affect blunted. Patient's speech is clear, disorganized, with pressure. Patient made good eye contact. Patient is non compliant with medication. Patient is denying suicidal and homicidal ideation. Patient does present with internal stimulation along with delusional content. 07/05/17 Patient presents hostle, refusing to talk. Iritatated. Patient contininues to meet criteria. Group Spec/RT/OT/VILLAGOMEZ Present: DAHLIA Helms, Ender Christianson, OT, DAHLIA Mcgrath Group Spec/RT/OT/VILLAGOMEZ Input: Per Chasity, patient does not attend groups, however she is encouraged to do so Atif VILLAGOMEZ reports patient is new and has not had time to speak to patient. 06/30/17 Chasity VILLAGOMEZ reports patient does not attend groups, is seclusive to room 09/04/16 Does not attend Documentation Scribe: EDITH Aguila Teaching Recipient: Patient RichardsonCassidy [facility] Jul 07, 2017 12:55
--- NOTE | 2017-07-07 12:56 | PD.TTN ---
Patient Problems 1. Discharge planning 2. Medication compliance 3. Knowledge deficit 4. Lack of coping skills Progress Toward Goals Provider Present: Dr. Colette Morales Provider Input: Patient continues to be treated by medical due to her lack of food and liquid intake; patient has been refusing psych medications and most of her medical treatment Dr. Haile's treatment team met to discuss patient's treatment plan, discharge and medication. Per Dr. Morales patient is noted to be irritable, guarded, and superficially cooperative and is refusing medication 06/30/17 Patient continues to refuse medications, seclusive, iritable, preoccupied 07/05/17 Patient is religiously preoccupied, starting to eat, medication will be increased Nurse(s) Present: Francisco Javier Treviño, RN Nurse(s) Input: Per Francisco Javier, patient continues to refuse meals and liquids, she only eat ice cheeps and is very religiously preoccupied Patient's nurse Areli reports patient being psychotic, occupied, seclusive, delusional, refusing medication. 06/30/17 Patient's nurse Pao reports patient is agitated, is non compliant with medication, religiously preoccupied, no insight 07/05/17 Patient is refusing PO medications, Requests zyprexa IM. Delsuional and paranoid. Believes staff is poisoning her by medicatons. Religiously preoccupied Psychiatric Counselors Present: Jelly Alejo, [facility], Cassidy Bai, [facility] Psych Therapist Input: Patient is coached with meals, encouraged with medication and activities. Patient is extremely religiously preoccupied and refuses to comply with treatment plan/treatment. Patient presented cooperative but superficial, guarded, religiously preoccupied, affect blunted. Patient denies suicidal and homicidal ideation. Patient denies internally stimulation, however, patient has been seen talking to herself. Patient is exit seeking and refusing her medication 06/30/17 Patient presents intrusive, agitated, restless, seclusive, hostle, affect blunted. Patient's speech is clear, disorganized, with pressure. Patient made good eye contact. Patient is non compliant with medication. Patient is denying suicidal and homicidal ideation. Patient does present with internal stimulation along with delusional content. 07/05/17 Patient presents hostle, refusing to talk. Iritatated. Patient contininues to meet criteria. Group Spec/RT/OT/VILLAGOMEZ Present: DAHLIA Helms, Ender Christianson, OT, DAHLIA Mcgrath Group Spec/RT/OT/VILLAGOMEZ Input: Per Chasity, patient does not attend groups, however she is encouraged to do so Atif VILLAGOMEZ reports patient is new and has not had time to speak to patient. 06/30/17 Chasity VILLAGOMEZ reports patient does not attend groups, is seclusive to room 09/04/16 Does not attend Documentation Scribe: EDITH Aguila Teaching Recipient: Patient RichardsonCassidy [facility] Jul 07, 2017 12:55
--- NOTE | 2017-07-07 13:45 | HHI.DS ---
Psychiatry Discharge Summary Inpatient Psychiatric care?: Yes Advance Directive: No Reason Not Provided: Refused Mental Health AdvanceDirective: No (Refused) Health Care Proxy: No Admission Admission Date Jun 25, 2017 at 20:35 Admission Diagnosis: (1) Schizoaffective disorder ICD Code: F25.9 - Schizoaffective disorder, unspecified Brief History 46-year-old female who has been to this institution and treated at [facility] on multiple occasions. Apparently the patient was seen here at [place] yesterday and both medically cleared and psychiatrically cleared for discharge. Unfortunately, when the patient presented herself to [facility] today, she was described as being loud, irrational, impulsive, angry and irritable, hostile and threatening. She is described as having paranoid delusional thinking and has been combative in the recent past. Her DENSITOMETRIST feels that her medicines have not adequately assisted her and that she needs to be further stabilized. Upon interview, the patient describes the DENSITOMETRIST's report as "all lies". The patient feels she is being persecuted by the staff at [facility]. She does admit that she is one day late to receive her Abilify Maintena injection. She denies the use of alcohol or drugs. Her toxicology screen is noted to be negative. She is hostile, irritable and threatening with this physician. She is felt to require inpatient psychiatric hospitalization. Tobacco Use In Past 30 Days: No Tobacco Past 30 Days Alcohol Use: Never Hospital Course Patient was admitted to the inpatient psychiatry unit where she was continued on Abilify Maintena 400mg IM as well as Abilify 10mg PO BID and Cogentin 1mg PO HS for psychosis but patient had only agreed to the VIRAMONTES and refused all PO medications. Patient during her admission also began to refuse to eat and drink which she developed MORENO secondary to dehydration and inadequate nutritional intake. Patient was taken to mental health court where she was retained by mental health court wildlife rehabilitator for involuntary admission and was appointed guardian advocate and health care surrogate. Patient was offered PO medications which she refused and was provided olanzapine 5mg IM if she refused which she received and later increased to olanzapine 10mg IM BID. Patient had IM medications held due to MORENO, dehydration and elevated CK levels. During the admission patient had completed writ of habeas corpus which the wildlife rehabilitator later granted and was to be discharged from the psychiatry service. Upon discharge, patient was explained that she would be discharged and that the medical team would go over her current medical condition and recommendations which she also refused and continued wanting discharge. Patient was asked of her plan after she left the hospital but stated, God will provide, God karine direct me with no concrete plan. She was provided referral to homeless shelters as well as outpatient follow up appointments, prescriptions to continue treatment and transportation passes. Patient advised to continue nutritional intake as well as treatment and follow up appointments for continuity of care. Patients manager care management was attempted to be contacted to update patients discharge but was left voice messages. Patient advised to return to ED or call 911 in case of emergency. Results Blood Pressure 114 / 54 Vital Signs Date Time Temp Pulse Resp B/P (MAP) Pulse Ox O2 Delivery O2 Flow Rate FiO2 07/07/17 05:49 97.5 73 19 114/54 (74) 96 Laboratory Tests Test 07/05/17 11:33 07/06/17 09:05 07/06/17 09:15 07/07/17 09:45 Monocytes (%) (Auto) 16.6 % (0.0-8.0) 17.4 % (0.0-8.0) Monocytes # (Auto) 1.1 TH/MM3 (0-0.9) 1.1 TH/MM3 (0-0.9) Blood Urea Nitrogen 53 MG/DL (7-18) 41 MG/DL (7-18) 20 MG/DL (7-18) Creatinine 1.48 MG/DL (0.50-1.00) 1.25 MG/DL (0.50-1.00) Total Protein 10.0 GM/DL (6.4-8.2) Aspartate Amino Transf (AST/SGOT) 80 U/L (15-37) Alanine Aminotransferase (ALT/SGPT) 83 U/L (10-53) Total Bilirubin 1.9 MG/DL (0.2-1.0) Sodium Level 156 MEQ/L (136-145) 153 MEQ/L (136-145) 147 MEQ/L (136-145) Potassium Level 3.3 MEQ/L (3.5-5.1) 3.3 MEQ/L (3.5-5.1) 3.2 MEQ/L (3.5-5.1) Chloride Level 118 MEQ/L (98-107) 118 MEQ/L (98-107) 113 MEQ/L (98-107) Estimat Glomerular Filtration Rate 46 ML/MIN (>89) 55 ML/MIN (>89) 80 ML/MIN (>89) Total Creatine Kinase 600 U/L (26-192) 631 U/L (26-192) 445 U/L (26-192) Random Glucose 130 MG/DL (74-106) 116 MG/DL (74-106) Calcium Level 8.4 MG/DL (8.5-10.1) Laboratory Results Test 06/28/17 08:00 Cholesterol Level 154 MG/DL (120-200) HDL Cholesterol 57.2 MG/DL (40.0-60.0) Hemoglobin A1c 5.4 % (4.3-6.0) LDL Cholesterol 85 MG/DL (0-99) Triglycerides Level 58 MG/DL (42-150) Summary of Procedures none Pending results at discharge: No Medications # of Antipsychotic meds at D/C: 1 Approp Antipsych med options 1 - Minimum of three failed multiple trials of monotherapy. 2 - Documented plan to taper to monotherapy due to previous use of multiple meds OR cross-taper in progress at D/C. 3 - Documentation of augmentation of Clozapine. 4 - Justification other than those listed in allowable values 1-3, document here : Discharge Discharge Date: Jul 07, 2017 Discharge Diagnosis: (1) Schizoaffective disorder ICD Code: F25.9 - Schizoaffective disorder, unspecified Status: Acute Pt Condition on Discharge: Deteriorating Discharge Disposition: Discharge Home Discharge Instructions Diet Instructions: Heart Healthy Diet Activities you can perform: Regular-No Restrictions Scheduled Appointment: Magan Crystal Appointment Date: Jul 09, 2017 Appointment Time: 07:30am Discharge Time > 30 minutes Mental Status Examination Appearance: Appropriate Consciousness: Alert Orientation: Person, Place, Date/Time Motor Activity: Normal gait Speech: Unremarkable Language: Adequate Fund of Knowledge: Adequate Attention and Concentration: Adequate Memory: Unremarkable Mood: Irritable (less so today) Affect: Irritable Thought Process & Associations: Linear Thought Content: Bizarre thinking (religiously preoccupied), Delusional ( roman catholic delusions) Hallucination Type: None Delusion Type: Paranoid, Other (religiously preoccupied) Suicidal Ideation: No Suicidal Plan: No Suicidal Intention: No Homicidal Ideation: No Homicidal Plan: No Homicidal Intention: No Insight: Poor Judgment: Poor Discharge/Advance Care Plan Health Problems: (1) Schizoaffective disorder, bipolar type Goals to promote your health * To prevent worsening of your condition and complications * To maintain your health at the optimal level Directions to meet your goals Take your medications as prescribed Follow your dietary instruction Follow activity as directed Keep your appointments as scheduled Take your immunizations and boosters as scheduled If your symptoms worsen call your PCP, if no PCP go to Urgent Care Center or Emergency Room For 22/03 questions related to your inpatient stay or results of tests pending at discharge, please contact Dr. Arnold Morales at Smoking is Dangerous to Your Health. Avoid second hand smoking Arnold Morales MD Jul 07, 2017 13:45
--- NOTE | 2017-07-07 13:45 | HHI.DS ---
Psychiatry Discharge Summary Inpatient Psychiatric care?: Yes Advance Directive: No Reason Not Provided: Refused Mental Health AdvanceDirective: No (Refused) Health Care Proxy: No Admission Admission Date Jun 25, 2017 at 20:35 Admission Diagnosis: (1) Schizoaffective disorder ICD Code: F25.9 - Schizoaffective disorder, unspecified Brief History 46-year-old female who has been to this institution and treated at [facility] on multiple occasions. Apparently the patient was seen here at [place] yesterday and both medically cleared and psychiatrically cleared for discharge. Unfortunately, when the patient presented herself to [facility] today, she was described as being loud, irrational, impulsive, angry and irritable, hostile and threatening. She is described as having paranoid delusional thinking and has been combative in the recent past. Her COMMUNITY CHEST OFFICER feels that her medicines have not adequately assisted her and that she needs to be further stabilized. Upon interview, the patient describes the COMMUNITY CHEST OFFICER's report as "all lies". The patient feels she is being persecuted by the staff at [facility]. She does admit that she is one day late to receive her Abilify Maintena injection. She denies the use of alcohol or drugs. Her toxicology screen is noted to be negative. She is hostile, irritable and threatening with this physician. She is felt to require inpatient psychiatric hospitalization. Tobacco Use In Past 30 Days: No Tobacco Past 30 Days Alcohol Use: Never Hospital Course Patient was admitted to the inpatient psychiatry unit where she was continued on Abilify Maintena 400mg IM as well as Abilify 10mg PO BID and Cogentin 1mg PO HS for psychosis but patient had only agreed to the VIRAMONTES and refused all PO medications. Patient during her admission also began to refuse to eat and drink which she developed MORENO secondary to dehydration and inadequate nutritional intake. Patient was taken to mental health court where she was retained by mental health court special diet cook for involuntary admission and was appointed guardian advocate and health care surrogate. Patient was offered PO medications which she refused and was provided olanzapine 5mg IM if she refused which she received and later increased to olanzapine 10mg IM BID. Patient had IM medications held due to MORENO, dehydration and elevated CK levels. During the admission patient had completed writ of habeas corpus which the special diet cook later granted and was to be discharged from the psychiatry service. Upon discharge, patient was explained that she would be discharged and that the medical team would go over her current medical condition and recommendations which she also refused and continued wanting discharge. Patient was asked of her plan after she left the hospital but stated, God will provide, God karine direct me with no concrete plan. She was provided referral to homeless shelters as well as outpatient follow up appointments, prescriptions to continue treatment and transportation passes. Patient advised to continue nutritional intake as well as treatment and follow up appointments for continuity of care. Patients client care consultant was attempted to be contacted to update patients discharge but was left voice messages. Patient advised to return to ED or call 911 in case of emergency. Results Blood Pressure 114 / 54 Vital Signs Date Time Temp Pulse Resp B/P (MAP) Pulse Ox O2 Delivery O2 Flow Rate FiO2 07/07/17 05:49 97.5 73 19 114/54 (74) 96 Laboratory Tests Test 07/05/17 11:33 07/06/17 09:05 07/06/17 09:15 07/07/17 09:45 Monocytes (%) (Auto) 16.6 % (0.0-8.0) 17.4 % (0.0-8.0) Monocytes # (Auto) 1.1 TH/MM3 (0-0.9) 1.1 TH/MM3 (0-0.9) Blood Urea Nitrogen 53 MG/DL (7-18) 41 MG/DL (7-18) 20 MG/DL (7-18) Creatinine 1.48 MG/DL (0.50-1.00) 1.25 MG/DL (0.50-1.00) Total Protein 10.0 GM/DL (6.4-8.2) Aspartate Amino Transf (AST/SGOT) 80 U/L (15-37) Alanine Aminotransferase (ALT/SGPT) 83 U/L (10-53) Total Bilirubin 1.9 MG/DL (0.2-1.0) Sodium Level 156 MEQ/L (136-145) 153 MEQ/L (136-145) 147 MEQ/L (136-145) Potassium Level 3.3 MEQ/L (3.5-5.1) 3.3 MEQ/L (3.5-5.1) 3.2 MEQ/L (3.5-5.1) Chloride Level 118 MEQ/L (98-107) 118 MEQ/L (98-107) 113 MEQ/L (98-107) Estimat Glomerular Filtration Rate 46 ML/MIN (>89) 55 ML/MIN (>89) 80 ML/MIN (>89) Total Creatine Kinase 600 U/L (26-192) 631 U/L (26-192) 445 U/L (26-192) Random Glucose 130 MG/DL (74-106) 116 MG/DL (74-106) Calcium Level 8.4 MG/DL (8.5-10.1) Laboratory Results Test 06/28/17 08:00 Cholesterol Level 154 MG/DL (120-200) HDL Cholesterol 57.2 MG/DL (40.0-60.0) Hemoglobin A1c 5.4 % (4.3-6.0) LDL Cholesterol 85 MG/DL (0-99) Triglycerides Level 58 MG/DL (42-150) Summary of Procedures none Pending results at discharge: No Medications # of Antipsychotic meds at D/C: 1 Approp Antipsych med options 1 - Minimum of three failed multiple trials of monotherapy. 2 - Documented plan to taper to monotherapy due to previous use of multiple meds OR cross-taper in progress at D/C. 3 - Documentation of augmentation of Clozapine. 4 - Justification other than those listed in allowable values 1-3, document here : Discharge Discharge Date: Jul 07, 2017 Discharge Diagnosis: (1) Schizoaffective disorder ICD Code: F25.9 - Schizoaffective disorder, unspecified Status: Acute Pt Condition on Discharge: Deteriorating Discharge Disposition: Discharge Home Discharge Instructions Diet Instructions: Heart Healthy Diet Activities you can perform: Regular-No Restrictions Scheduled Appointment: Magan Crystal Appointment Date: Jul 09, 2017 Appointment Time: 07:30am Discharge Time > 30 minutes Mental Status Examination Appearance: Appropriate Consciousness: Alert Orientation: Person, Place, Date/Time Motor Activity: Normal gait Speech: Unremarkable Language: Adequate Fund of Knowledge: Adequate Attention and Concentration: Adequate Memory: Unremarkable Mood: Irritable (less so today) Affect: Irritable Thought Process & Associations: Linear Thought Content: Bizarre thinking (religiously preoccupied), Delusional ( sabianist delusions) Hallucination Type: None Delusion Type: Paranoid, Other (religiously preoccupied) Suicidal Ideation: No Suicidal Plan: No Suicidal Intention: No Homicidal Ideation: No Homicidal Plan: No Homicidal Intention: No Insight: Poor Judgment: Poor Discharge/Advance Care Plan Health Problems: (1) Schizoaffective disorder, bipolar type Goals to promote your health * To prevent worsening of your condition and complications * To maintain your health at the optimal level Directions to meet your goals Take your medications as prescribed Follow your dietary instruction Follow activity as directed Keep your appointments as scheduled Take your immunizations and boosters as scheduled If your symptoms worsen call your PCP, if no PCP go to Urgent Care Center or Emergency Room For 22/03 questions related to your inpatient stay or results of tests pending at discharge, please contact Dr. Arnold Morales at Smoking is Dangerous to Your Health. Avoid second hand smoking Arnold Morales MD Jul 07, 2017 13:45
--- NOTE | 2017-07-07 13:45 | HHI.DS ---
Psychiatry Discharge Summary Inpatient Psychiatric care?: Yes Advance Directive: No Reason Not Provided: Refused Mental Health AdvanceDirective: No (Refused) Health Care Proxy: No Admission Admission Date Jun 25, 2017 at 20:35 Admission Diagnosis: (1) Schizoaffective disorder ICD Code: F25.9 - Schizoaffective disorder, unspecified Brief History 46-year-old female who has been to this institution and treated at [facility] on multiple occasions. Apparently the patient was seen here at [place] yesterday and both medically cleared and psychiatrically cleared for discharge. Unfortunately, when the patient presented herself to [facility] today, she was described as being loud, irrational, impulsive, angry and irritable, hostile and threatening. She is described as having paranoid delusional thinking and has been combative in the recent past. Her HISTOLOGY SPECIALIST feels that her medicines have not adequately assisted her and that she needs to be further stabilized. Upon interview, the patient describes the HISTOLOGY SPECIALIST's report as "all lies". The patient feels she is being persecuted by the staff at [facility]. She does admit that she is one day late to receive her Abilify Maintena injection. She denies the use of alcohol or drugs. Her toxicology screen is noted to be negative. She is hostile, irritable and threatening with this physician. She is felt to require inpatient psychiatric hospitalization. Tobacco Use In Past 30 Days: No Tobacco Past 30 Days Alcohol Use: Never Hospital Course Patient was admitted to the inpatient psychiatry unit where she was continued on Abilify Maintena 400mg IM as well as Abilify 10mg PO BID and Cogentin 1mg PO HS for psychosis but patient had only agreed to the VIRAMONTES and refused all PO medications. Patient during her admission also began to refuse to eat and drink which she developed MORENO secondary to dehydration and inadequate nutritional intake. Patient was taken to mental health court where she was retained by mental health court pelt grader for involuntary admission and was appointed guardian advocate and health care surrogate. Patient was offered PO medications which she refused and was provided olanzapine 5mg IM if she refused which she received and later increased to olanzapine 10mg IM BID. Patient had IM medications held due to MORENO, dehydration and elevated CK levels. During the admission patient had completed writ of habeas corpus which the pelt grader later granted and was to be discharged from the psychiatry service. Upon discharge, patient was explained that she would be discharged and that the medical team would go over her current medical condition and recommendations which she also refused and continued wanting discharge. Patient was asked of her plan after she left the hospital but stated, God will provide, God karine direct me with no concrete plan. She was provided referral to homeless shelters as well as outpatient follow up appointments, prescriptions to continue treatment and transportation passes. Patient advised to continue nutritional intake as well as treatment and follow up appointments for continuity of care. Patients patient care representative was attempted to be contacted to update patients discharge but was left voice messages. Patient advised to return to ED or call 911 in case of emergency. Results Blood Pressure 114 / 54 Vital Signs Date Time Temp Pulse Resp B/P (MAP) Pulse Ox O2 Delivery O2 Flow Rate FiO2 07/07/17 05:49 97.5 73 19 114/54 (74) 96 Laboratory Tests Test 07/05/17 11:33 07/06/17 09:05 07/06/17 09:15 07/07/17 09:45 Monocytes (%) (Auto) 16.6 % (0.0-8.0) 17.4 % (0.0-8.0) Monocytes # (Auto) 1.1 TH/MM3 (0-0.9) 1.1 TH/MM3 (0-0.9) Blood Urea Nitrogen 53 MG/DL (7-18) 41 MG/DL (7-18) 20 MG/DL (7-18) Creatinine 1.48 MG/DL (0.50-1.00) 1.25 MG/DL (0.50-1.00) Total Protein 10.0 GM/DL (6.4-8.2) Aspartate Amino Transf (AST/SGOT) 80 U/L (15-37) Alanine Aminotransferase (ALT/SGPT) 83 U/L (10-53) Total Bilirubin 1.9 MG/DL (0.2-1.0) Sodium Level 156 MEQ/L (136-145) 153 MEQ/L (136-145) 147 MEQ/L (136-145) Potassium Level 3.3 MEQ/L (3.5-5.1) 3.3 MEQ/L (3.5-5.1) 3.2 MEQ/L (3.5-5.1) Chloride Level 118 MEQ/L (98-107) 118 MEQ/L (98-107) 113 MEQ/L (98-107) Estimat Glomerular Filtration Rate 46 ML/MIN (>89) 55 ML/MIN (>89) 80 ML/MIN (>89) Total Creatine Kinase 600 U/L (26-192) 631 U/L (26-192) 445 U/L (26-192) Random Glucose 130 MG/DL (74-106) 116 MG/DL (74-106) Calcium Level 8.4 MG/DL (8.5-10.1) Laboratory Results Test 06/28/17 08:00 Cholesterol Level 154 MG/DL (120-200) HDL Cholesterol 57.2 MG/DL (40.0-60.0) Hemoglobin A1c 5.4 % (4.3-6.0) LDL Cholesterol 85 MG/DL (0-99) Triglycerides Level 58 MG/DL (42-150) Summary of Procedures none Pending results at discharge: No Medications # of Antipsychotic meds at D/C: 1 Approp Antipsych med options 1 - Minimum of three failed multiple trials of monotherapy. 2 - Documented plan to taper to monotherapy due to previous use of multiple meds OR cross-taper in progress at D/C. 3 - Documentation of augmentation of Clozapine. 4 - Justification other than those listed in allowable values 1-3, document here : Discharge Discharge Date: Jul 07, 2017 Discharge Diagnosis: (1) Schizoaffective disorder ICD Code: F25.9 - Schizoaffective disorder, unspecified Status: Acute Pt Condition on Discharge: Deteriorating Discharge Disposition: Discharge Home Discharge Instructions Diet Instructions: Heart Healthy Diet Activities you can perform: Regular-No Restrictions Scheduled Appointment: Magan Crystal Appointment Date: Jul 09, 2017 Appointment Time: 07:30am Discharge Time > 30 minutes Mental Status Examination Appearance: Appropriate Consciousness: Alert Orientation: Person, Place, Date/Time Motor Activity: Normal gait Speech: Unremarkable Language: Adequate Fund of Knowledge: Adequate Attention and Concentration: Adequate Memory: Unremarkable Mood: Irritable (less so today) Affect: Irritable Thought Process & Associations: Linear Thought Content: Bizarre thinking (religiously preoccupied), Delusional ( muslim delusions) Hallucination Type: None Delusion Type: Paranoid, Other (religiously preoccupied) Suicidal Ideation: No Suicidal Plan: No Suicidal Intention: No Homicidal Ideation: No Homicidal Plan: No Homicidal Intention: No Insight: Poor Judgment: Poor Discharge/Advance Care Plan Health Problems: (1) Schizoaffective disorder, bipolar type Goals to promote your health * To prevent worsening of your condition and complications * To maintain your health at the optimal level Directions to meet your goals Take your medications as prescribed Follow your dietary instruction Follow activity as directed Keep your appointments as scheduled Take your immunizations and boosters as scheduled If your symptoms worsen call your PCP, if no PCP go to Urgent Care Center or Emergency Room For 22/03 questions related to your inpatient stay or results of tests pending at discharge, please contact Dr. Arnold Morales at Smoking is Dangerous to Your Health. Avoid second hand smoking Arnold Morales MD Jul 07, 2017 13:45
== END 2017-07-07 12:05 | disposition home or self-care (01) | DRG 885 ==
LOC: NEPD 14:19 → NEDA 20:35 → H260 22:09 → H4EA 07-05 14:05
PROVIDERS: ADMIT Student in an Organized Health Care Education/Training Program; ATTEND Student in an Organized Health Care Education/Training Program
DX: F25.0 Schizoaffective disorder, bipolar type (principal); N17.9 Acute kidney failure, unspecified; E87.0 Hyperosmolality and hypernatremia; Z68.41 Body mass index [BMI] 40.0-44.9, adult; E66.01 Morbid (severe) obesity due to excess calories; E86.0 Dehydration; F22 Delusional disorders; I10 Essential (primary) hypertension; E87.6 Hypokalemia; Z79.899 Other long term (current) drug therapy
CPT/HCPCS: 76937; 80048; 80053; 80061; 82306; 82550; 82552; 82607; 83036; 84443; 85025; 93005; J3480; J3486; J7030